=== PATIENT | female | born 1995 | race Caucasian/White ===

== ENCOUNTER 2022-10-26 08:00 | Outpatient (RCR) | payer OTHER, SELFPAY ==
--- NOTE | 2022-10-25 11:28 | PC.NURSE ---
Patient did not show up to the program today and did not answer staff messages left on patients voicemail. Called patient's emergency contact Jessica Ospina patient's mother who stated Ronda is sick today. She reports she is planning on taking a Covid test. If she feels better she will be here tomorrow. Jessica stated she will have Pilar contact staff to f/u.
--- NOTE | 2022-10-26 15:42 | PC.NURSE ---
Patient did not show up to the program today. I spoke with her mother who called me this morning and stated her daughter continues to be sick and has a fever. Stated if she feels better after the weekend she will be here on Saturday. PHP team is aware.
--- NOTE | 2022-10-29 10:50 | PC.NURSE ---
Patient did not show up to the program today. Patient's mother stated last Saturday that Ronda was sick with a fever and was unsure if she would be here on Saturday. I called Ronda and her mother Jessica taylor left them voicemails asking to call me back to f/u. Awaiting a call back. PHP team is aware.
== END 2022-10-26 23:59 | disposition home or self-care (01) ==
LOC: HO.PHPA 08:00
PROVIDERS: Visit Provider Psychiatry & Neurology Psychiatry
DX: F33.1 Major depressive disorder, recurrent, moderate (principal); F41.1 Generalized anxiety disorder; F43.10 Post-traumatic stress disorder, unspecified; F10.20 Alcohol dependence, uncomplicated
CPT/HCPCS: 90791

== ENCOUNTER 2022-11-16 10:17 | Inpatient (IN) | payer OTHER, SELFPAY ==
[2022-11-16 10:21] VITALS: BP 100/43; PULSE 92; RESP 18; TEMP 36.8; O2SAT 99; BMI 30.9
--- NOTE | 2022-11-16 10:58 | PC.NURSE ---
Mom in to bedside with pt. Mom brought pt's phone and a photocopy of apt card provided
[2022-11-16 11:02] LABS: Appearance Urine Cloudy; Color Urine Yellow; Glucose Urine UA Negative (Negative); Leukocyte Esterase Urine Trace (Negative); Nitrite Urine Negative (Negative); PH 7.5 (5.0-9.0); UMIC TRIGGER UACC YES; Urine Blood Negative (Negative); Urine Ketones Negative (Negative); Urine Protein Negative (Neg-Trace)
[2022-11-16 11:13] LABS: Bacteria Urine 1+ (None Seen); Hyaline Casts Urine 0-2 /LPF (0-2); RBC Urine 0-2 /HPF (0-2); UACC Culture Trigger YES
[2022-11-16 11:16] LABS: Amphetamine Screen Urine POSITIVE (Not Detect); Barbiturates, Urine Not Detected (Not Detect); Benzodiazepines Screen Urine POSITIVE (Not Detect); Cannabinoid Screen Urine Not Detected (Not Detect); Cocaine Screen Urine Not Detected (Not Detect); Fentanyl, urine Not Detected (Not Detect); Opiate Screen Urine Not Detected (Not Detect); Phencyclidine Screen Urine Not Detected (Not Detect)
[2022-11-16 11:39] LABS: Influenza A PCR NEGATIVE (Negative); Influenza B PCR NEGATIVE (Negative); Resp Syncy Virus RNA Qual PCR NEGATIVE (Negative); SARS COV2 PCR INHOUSE NEGATIVE (Negative)
--- NOTE | 2022-11-16 11:45 | PC.NURSE ---
Pt's mom Jessica Ospina would like phone call for updates [phone], Kenroy Ospina [phone]
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
[2022-11-16 12:08] LABS: Basophils Absolute Auto 0.1 X10*3/uL (0.0-0.2); Basophils Percent Auto 0.8 % (0-2); Eosinophils Absolute Auto 0.3 X10*3/uL (0.0-0.4); Eosinophils Percent Auto 4.3 % (0-4); Hematocrit 33.2 % (37.0-47.0); Hemoglobin 11.1 g/dl (12.0-16.0); Imm Gran Abs Auto 0.01 X10*3/uL (0.00-0.03); Imm Gran Pct Auto 0.2 % (0.0-0.4); Lymphocytes Absolute Auto 2.5 X10*3/uL (1.2-4.9); Lymphocytes Percent Auto 37.4 % (20-40); Mean Corpuscular HGB Conc 33.4 g/dl (31.0-35.0); Mean Corpuscular Hemoglobin 30.5 pg (27.0-33.0); Mean Corpuscular Volume 91.2 fL (80.0-98.0); Monocytes Absolute Auto 0.7 X10*3/uL (0.1-1.2); Monocytes Percent Auto 11.1 % (2-11); Neutrophils Percent Auto 46.2 % (45-73); Platelet Count 290 X10*3/uL (160-400); Red Blood Count 3.64 X10*6/uL (4.20-5.50); Red Cell Distribution Width 12.7 % (11.0-16.0); White Blood Count 6.6 X10*3/uL (4.8-10.8)
[2022-11-16 12:19] LABS: Acetaminophen LAB < 17 mcg/mL (<30); Alanine Aminotransferase 21 U/L (0-31); Albumin Level 3.8 g/dL (3.5-5.0); Alkaline Phosphatase 53 U/L (39-117); Anion Gap 14 (12-20); Aspartate Amino Transferase 28 U/L (5-31); Bilirubin Total 0.3 mg/dL (0.0-1.0); Blood Urea Nitrogen 10 mg/dL (9-16); Calcium 8.6 mg/dL (8.4-10.2); Carbon Dioxide 21 mmol/L (22-29); Chloride 107 mmol/L (96-108); Creatinine Clr Calc Pharmacy 98.1; Estimated Glomerular Filt Rate > 60; Ethanol < 10 mg/dL; Glucose Random 127 mg/dL (60-115); Potassium 3.3 mmol/L (3.3-5.1); Salicylate < 5.0 mg/dL (15-30); Sodium 139 mmol/L (135-145)
--- NOTE | 2022-11-16 15:03 | PC.NURSE ---
Pt sleeping, social work attempted to meet with pt. Pt not willing to wake at this time and participate in eval. Plan to let pt sleep and social work will follow up.
[2022-11-16 22:37] VITALS: BP 127/81; PULSE 77; RESP 16; TEMP 36.7; O2SAT 96
--- NOTE | 2022-11-17 06:09 | PC.NURSE ---
Patient slept through the night, no distress observed/reported, asymptomatic of ETOH withdrawal, patient was assessed by care team disposition pending, awaiting psych consult, med rec completed/pending provider's approval, behavior non concerning, thought process coherent, VSS, will continue to monitor.
[2022-11-17 06:57] VITALS: BP 93/47; PULSE 79; RESP 15; TEMP 36.9; O2SAT 99
--- NOTE | 2022-11-17 07:02 | PC.NURSE ---
Patient sleeping no distress noted will CTM
[2022-11-17] MEDS: buPROPion HCl XL 150 MG TAB.ER.24H PO (12:34)
[2022-11-17] MEDS: buPROPion HCl XL 300 MG TAB.ER.24H PO (12:34)
--- NOTE | 2022-11-17 14:24 | MHC.CARE ---
CARE TEAM attempted to re-assessed pt at 2300. She was minimally engaged and was observed falling asleep throughout the assessment. CARE TEAM will re-attempt to assess.
[2022-11-17 15:14] VITALS: BP 96/34; PULSE 64; RESP 18; TEMP 36.4; O2SAT 98
--- NOTE | 2022-11-17 17:57 | MHC.CARE ---
CARE Team was unable to arouse pt. Plan to follow up with pt at a later time.
[2022-11-17] MEDS: PARoxetine HCL 20 MG TABLET PO (21:14)
[2022-11-17] MEDS: Topiramate 100 MG TABLET PO (21:14)
[2022-11-18 02:50] VITALS: BP 100/56; PULSE 83; RESP 15; TEMP 37; O2SAT 100
--- NOTE | 2022-11-18 06:43 | PC.NURSE ---
Patient slept through the night, no distress observed/reported, behavior non concerning, medication compliant, care team disposition pending/patient will revaluated by care team in the morning, VSS, will continue to monitor.
[2022-11-18] MEDS: cloNIDine HCL 0.1 MG TABLET PO ×2 (08:09→20:57)
[2022-11-18] MEDS: buPROPion HCl XL 300 MG TAB.ER.24H PO (08:17)
[2022-11-18] MEDS: buPROPion HCl XL 150 MG TAB.ER.24H PO (08:17)
[2022-11-18] MEDS: PARoxetine HCL 20 MG TABLET PO (08:17)
--- NOTE | 2022-11-18 10:06 | PC.NURSE ---
PT RESTING QUIETLY. AWAITING CARE TEAM ASSESSMENT.
--- NOTE | 2022-11-18 19:40 | PC.NURSE ---
Pt currently has a visitor in his room. Visitor brought a blanket and pt' eye contacts. Both items have been checked and secured. Contacts are with pt's chart.
[2022-11-18 20:00] VITALS: BP 105/55; PULSE 86; RESP 16; TEMP 36.1; O2SAT 99
[2022-11-18] MEDS: Topiramate 100 MG TABLET PO (20:57)
[2022-11-19 02:00] VITALS: BP 110/62; PULSE 79; RESP 16; TEMP 36.4; O2SAT 99
[2022-11-19] MEDS: diphenhydrAMINE HCL 25 MG CAPSULE 50 MG PO (02:35)
[2022-11-19] MEDS: LORazepam 1 MG TABLET 2 MG PO (02:35)
[2022-11-19] MEDS: buPROPion HCl XL 150 MG TAB.ER.24H PO (10:09)
[2022-11-19] MEDS: cloNIDine HCL 0.1 MG TABLET PO ×2 (10:09→22:52)
[2022-11-19] MEDS: buPROPion HCl XL 300 MG TAB.ER.24H PO (10:09)
[2022-11-19] MEDS: PARoxetine HCL 20 MG TABLET PO (10:09)
[2022-11-19 14:59] VITALS: BP 97/47; PULSE 83; RESP 16; O2SAT 98
[2022-11-19 16:20] VITALS: BP 98/55; PULSE 83; TEMP 35.7; O2SAT 100
[2022-11-19] MEDS: clomiPRAMINE HCl 25 MG CAPSULE PO (22:52)
[2022-11-19] MEDS: Amitriptyline HCl 25 MG TABLET PO (22:52)
[2022-11-19] MEDS: Topiramate 100 MG TABLET PO (22:52)
--- NOTE | 2022-11-20 00:53 | PC.ADMIT ---
Patient is a 27 year old Faroese speaking single female, admitted as a CV admission to at 1620 and placed on 15 minute safety checks. Patient was medically cleared in the [facility] ED,, evaluated by the CARE team and deemed in need of IPLOC secondary to depression, anxiety andf SI. Patient has a history of ETOH abuse. She has not been at [facility] before for psychiatric issues. Patient was tired on admission but denied any withdrawal issues and no SI OR HI. [id number] aqble to sign legals and then decided to rest. Med and meal compliant.
[2022-11-20 08:33] VITALS: BP 102/57; PULSE 73; RESP 16; TEMP 36.8; O2SAT 100
[2022-11-20] MEDS: PARoxetine HCL 20 MG TABLET PO (08:44)
[2022-11-20] MEDS: cloNIDine HCL 0.1 MG TABLET PO ×3 (08:44→20:20)
[2022-11-20] MEDS: buPROPion HCl XL 300 MG TAB.ER.24H PO (08:44)
[2022-11-20] MEDS: buPROPion HCl XL 150 MG TAB.ER.24H PO (08:44)
--- NOTE | 2022-11-20 09:00 | ECG_ITS ---
Test Reason : ck qt Blood Pressure : / mmHG Vent. Rate : 072 BPM Atrial Rate : 072 BPM P-R Int : 122 ms QRS Dur : 082 ms QT Int : 394 ms P-R-T Axes : 059 075 034 degrees QTc Int : 431 ms Normal sinus rhythm Normal ECG No previous ECGs available Referred By: Kandice Cartagena Electronically Signed By:Álvaro Khalil
[2022-11-20] MEDS: Acetaminophen 325 MG TABLET 650 MG PO (09:35)
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
[2022-11-20 10:28] LABS: Cholesterol 199 mg/dL; HDL Cholesterol 79 mg/dL; LDL Cholesterol Calculated 107 mg/dl; Magnesium 2.1 mg/dL (1.6-2.6); Triglycerides 67 mg/dL
[2022-11-20 10:45] LABS: Folate 14.6 ng/mL (> or = 4.0); Free T4 (Free Thyroxine) 0.76 ng/dL (0.71-1.85); Thyroid Stimulating Hormone 1.66 uIU/mL (0.32-4.0); Vitamin B12 1034 pg/mL (200-900)
[2022-11-20 10:46] LABS: Estimated Average Glucose 97 mg/dL
[2022-11-20 16:05] VITALS: BP 97/52; PULSE 101; TEMP 36.2; O2SAT 99
[2022-11-20 18:20] VITALS: BP 106/56; PULSE 95; RESP 16; TEMP 36.1; O2SAT 100
[2022-11-20 20:15] VITALS: BP 99/62; PULSE 84
[2022-11-20] MEDS: Topiramate 100 MG TABLET PO (20:20)
[2022-11-20] MEDS: clomiPRAMINE HCl 25 MG CAPSULE PO (20:20)
[2022-11-20] MEDS: Amitriptyline HCl 25 MG TABLET PO (20:20)
[2022-11-20] MEDS: Lithium Carbonate ER 300 MG TABLET.ER PO (20:20)
--- NOTE | 2022-11-20 22:05 | PC.NURSE ---
Patient was provided specimen cup for urine HCG.
[2022-11-21 09:30] VITALS: BP 135/63; PULSE 94; RESP 16; TEMP 36.1; O2SAT 99
[2022-11-21] MEDS: buPROPion HCl XL 300 MG TAB.ER.24H PO (09:46)
[2022-11-21] MEDS: cloNIDine HCL 0.1 MG TABLET PO ×3 (09:46→19:37)
[2022-11-21] MEDS: PARoxetine HCL 20 MG TABLET PO (09:51)
[2022-11-21] MEDS: Acetaminophen 325 MG TABLET 650 MG PO (11:00)
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
[2022-11-21 13:50] VITALS: BP 98/55; PULSE 97
[2022-11-21] MEDS: hydrOXYzine HCL 25 MG TABLET PO (14:07)
[2022-11-21 19:30] VITALS: BP 112/63; PULSE 102; TEMP 36.3; O2SAT 100
[2022-11-21] MEDS: Topiramate 100 MG TABLET PO (19:37)
[2022-11-21] MEDS: clomiPRAMINE HCl 25 MG CAPSULE PO (19:37)
[2022-11-21] MEDS: Lithium Carbonate ER 300 MG TABLET.ER 600 MG PO (19:37)
[2022-11-21] MEDS: traZODone HCL 50 MG TABLET PO ×2 (19:37→21:09)
[2022-11-21] MEDS: Amitriptyline HCl 25 MG TABLET PO (19:37)
[2022-11-21 22:25] VITALS: BP 109/59; PULSE 94; TEMP 36.3; O2SAT 100
[2022-11-21] MEDS: OLANZapine 2.5 MG TABLET PO (22:49)
--- NOTE | 2022-11-22 00:26 | PC.NURSE ---
Patient was quite anxious and agitated around 2215 and said she thought the Trazadone might be interacting with another medication. Patient said she was having AH of male and female voices and one of the female voices called her a bitch. Patient said she had a similar experience when she took Trazadone with Vyvanse. Dr. Amaro notified of patient's concern. An order for Zyprexa 2.5 mg q 4 hours prn anxiety and agitation was ordered. Vitals signs were WNL and other than feeling anxious and having the AH patient was stable.
[2022-11-22] MEDS: hydrOXYzine HCL 25 MG TABLET PO ×2 (00:52→09:25)
[2022-11-22] MEDS: PARoxetine HCL 10 MG TABLET PO (09:25)
[2022-11-22] MEDS: cloNIDine HCL 0.1 MG TABLET PO ×3 (09:25→21:40)
[2022-11-22] MEDS: FLUoxetine HCl 10 MG CAPSULE PO (09:25)
[2022-11-22] MEDS: buPROPion HCl XL 300 MG TAB.ER.24H PO (09:26)
[2022-11-22 10:12] VITALS: BP 90/53; PULSE 96; RESP 18; TEMP 36.3; O2SAT 100
[2022-11-22] MEDS: Lithium Carbonate ER 300 MG TABLET.ER PO (13:44)
[2022-11-22] MEDS: clonazePAM 0.5 MG TABLET PO ×2 (13:44→21:41)
[2022-11-22] MEDS: OLANZapine 5 MG TABLET PO (14:15)
[2022-11-22 18:00] VITALS: RESP 16
[2022-11-22] MEDS: Lithium Carbonate ER 300 MG TABLET.ER 600 MG PO (21:41)
[2022-11-22] MEDS: Topiramate 100 MG TABLET PO (21:41)
[2022-11-22] MEDS: traZODone HCL 100 MG TABLET 200 MG PO (21:41)
--- NOTE | 2022-11-22 23:16 | HO.PSYCHPN ---
Subjective Subjective Date of Service: 11/22/22 Reason For Visit: Alcohol Use Disorder, Depression w/ Active SI Interim History: Met with patient; discussed in team; met with patient's mother who came to the unit and discussed case for about 30 minutes with social service coordinator present Patient having auditory hallucinations with paranoid thoughts. She thinks that staff was talking about her and her manic episode and going through her phone. The reason she thinks this is because when in her room, down the [place], was looking up at the light fixture and thought she could see staff doing so, in the light fixture. She also thought she could hear this. Also think she hears staff and peers making comments such as she's a whore...a hooker...she has a sugar daddy... Patient also says she hears a beeping sound. Initially she thinks it is true but then reflects and says she thinks it is combination of auditory hallucinations and reality. She says she has had auditory hallucinations before, when on Vyvanse which made her start to feel manic. Patient was up at 04:00 texting her mother these things which prompted her mother to come to the unit. Patient agrees to increase lithium, discontinue Paxil, clomipramine and amitriptyline; also lower Wellbutrin. Will also add Zyprexa as a p.r.n. and clonazepam as patient is both anxious, hypomanic and with AVH Patient's mother corroborated patient's history and agrees that there are discrete 3 day to 2 week episodes were patient is manic, during which time she engages in substance abuse, risky behaviors, is hyper verbal, hyperactive, not sleeping, not acting herself; she can see when this is about to happen because about 1 2 days before an episode, she will start dressing more fancy and sleeping less and all of sudden wants to go go out. When not manic patient is calm, quiet, shy, stays at home, no substance abuse. Patient's mother and family have thought this is just due to substance abuse, however check writer salesperson explained patient's likely diagnosis of bipolar disorder and that substance abuse seems to be limited to manic episodes. Patient's mother reflected in felt that she had been wondering if this was true and with discussion thinks that it very likely is; no history of such in the family. Discussed medication management with mother who agrees on plan. Mental Status Exam Mental Status Exam Narrative: Pt is alert and oriented; behavior is cooperative, anxious, a little guarded; patient is not in distress; dressed in casual attire with black/blonde colored hair, adequate hygiene; mood is described as upset and affect congruent, distraught, tearful, nervous; eye contact appropriate; Speech is a little brisk; normal volume and prosody and not pressured; some psychomotor agitation present; thought process can be goal directed but is also distracted; Thought content is on paranoid delusions; on tx; denies any SI/HI. Patient endorses AH and some illusions. Patients insight and judgment are impaired. Diagnostics Vital Signs (24Hr): Vital Signs - 24 hr 11/22/22 10:12 11/22/22 18:00 Temperature 97.3 F Pulse Rate 96 Respiratory Rate 18 16 Blood Pressure 90/53 L Pulse Oximetry 100 Oxygen Delivery Method Room Air BMI result Body Mass Index 30.9 Labs 11/16/22 12:00 11/16/22 11:49 Medications Medications Current Medications Acetaminophen (Acetaminophen 325 Mg Tablet) 650 mg PO Q6H PRN PRN Reason: Headache/Pain Mild Scale (1-3) Last Admin: 11/21/22 11:00 Dose: 650 mg Al Hydroxide/Mg Hydroxide (Magnesium Hydrox/Alum Hydrox 30 Ml Oral.Susp) 30 ml PO Q6H PRN PRN Reason: Heartburn/Nausea Albuterol Sulfate (Albuterol Sulfate 90 Mcg 8 Gm Inhaler) 2 puff INHALE Q4H PRN PRN Reason: Shortness of Breath/Wheezing Bupropion HCl (Bupropion Hcl Xl 150 Mg Tab.Er.24h) 150 mg PO DAILY [facility] Clonazepam (Clonazepam 0.5 Mg Tablet) 0.5 mg PO BID [facility] Stop: 11/24/22 23:00 Last Admin: 11/22/22 21:41 Dose: 0.5 mg Clonidine HCl (Clonidine Hcl 0.1 Mg Tablet) 0.1 mg PO TID [facility]; Protocol Last Admin: 11/22/22 21:40 Dose: 0.1 mg Fluoxetine HCl (Fluoxetine Hcl 10 Mg Capsule) 10 mg PO DAILY [facility] Last Admin: 11/22/22 09:25 Dose: 10 mg Hydroxyzine HCl (Hydroxyzine Hcl 25 Mg Tablet) 25 mg PO Q6H PRN PRN Reason: Anxiety Last Admin: 11/22/22 09:25 Dose: 25 mg [place] Carbonate ([place] Carbonate Er 300 Mg Tablet.Er) 600 mg PO BEDTIME [facility] Last Admin: 11/22/22 21:41 Dose: 600 mg [place] Carbonate ([place] Carbonate Er 300 Mg Tablet.Er) 300 mg PO DAILY [facility] Magnesium Hydroxide (Milk Of Magnesia 30 Ml Oral.Susp) 30 ml PO DAILY PRN PRN Reason: Constipation Olanzapine (Olanzapine 5 Mg Tablet) 5 mg PO Q4H PRN PRN Reason: anxiety/agitation Last Admin: 11/22/22 14:15 Dose: 5 mg Topiramate (Topiramate 100 Mg Tablet) 100 mg PO BEDTIME [facility] Last Admin: 11/22/22 21:41 Dose: 100 mg Trazodone HCl (Trazodone Hcl 100 Mg Tablet) 200 mg PO BEDTIME [facility] Last Admin: 11/22/22 21:41 Dose: 200 mg Trazodone HCl (Trazodone Hcl 50 Mg Tablet) 50 mg PO BEDTIME PRN PRN Reason: continued Insomnia Allergies Allergies Allergy/AdvReac Type Severity Reaction Status Date / Time No Known Allergies Allergy Verified 11/16/22 19:31 Assessment & Plan Assessment & Plan (1) Bipolar 1 disorder: Status: Acute Code(s): F31.9 - Bipolar disorder, unspecified (2) PTSD (post-traumatic stress disorder): Status: Acute Code(s): F43.10 - Post-traumatic stress disorder, unspecified (3) Social anxiety disorder: Status: Acute Code(s): F40.10 - Social phobia, unspecified Plan Patient is a 27-year-old female with a history of severe anxiety, panic attacks and past history of binge alcoholism who presents after what sounds like a manic episode.? -history provides adequate criteria for bipolar diagnosis.? Seems much more likely that binge alcoholism is due to manic episodes rather than its own alcohol use disorder. -patient also has social anxiety disorder and MOMO with some low self-esteem issues.? Will need to rule out OCD -patient is currently on polypharmacy, most of which do not seem to be that helpful.? Discussed risks/side effects of lithium and patient agrees to trial. pt has IUD but will get urine preg 2/ patient anxious and upset about psychosocial stressors; did not sleep last night.? Asks for trazodone 50 mg; agrees to titration of lithium and getting off Paxil with help from Prozac. 2/2 patient presenting with manic symptoms, AVH, paranoid thinking. Agrees to medication management. Discussed case with mother who was present and corroborates patient's psych history, making bipolar disorder most likely diagnosis; in addition to PTSD, social anxiety/MOMO, and likely ADHD. Pt asked about CSS but agrees to hold off on that thought for now. PLAN: CV Q 15 minute checks Preg urine test ordered INCREASE to trazodone 200mg q.h.s. which is patient's home dose; patient agrees that she needs this ADDED lithium ER 300 mg daily Continue lithium ER 600 mg q.h.s. ADD Zyprexa 5 mg Q 4 p.r.n.; will consider scheduling ADD clonazepam 0.5 mg b.i.d. LOWER TO Wellbutrin XL 150 mg due to mango(patient was just recently increased to 450 mg) DC Paxil 10 mg for now; however will likely taper and discontinue since has not been helpful for anxiety BUT Continue Prozac 10 mg to help get off Paxil; want to avoid discontinuation syndrome which will complicate presentation DC amitriptyline; patient says she has it for insomnia DC lomipramine for now; patient says she was recently started on this for OCD DC Vyvanse; patient says she was never diagnosed with ADHD but outpatient provider started on this for weight gain (says she gained 50 lb over the past year; that said patient does have some symptoms of ADHD) Continue Topamax q.h.s. for migraine prevention Continue clonidine 0.1 mg t.i.d. for now Will also consider starting Lamictal for anxiety, PTSD and OCD since SSRIs have not seemed helpful; that said once on lithium patient may be able to tolerate higher doses of SSRI Patient educated on: diagnosis, medication risk/benefits, substance abuse and therapeutic strategies Informed Consent: understands and further education needed Reason for contiued inpatient stay Substantial Risk for: inability to function Time Spent With Patient Time: Total time managing care of this patient today ____ minutes.
[2022-11-22 23:53] VITALS: BP 119/80; PULSE 98; TEMP 36.8; O2SAT 95
[2022-11-23] MEDS: OLANZapine 5 MG TABLET PO ×3 (01:15→14:42)
[2022-11-23] MEDS: hydrOXYzine HCL 25 MG TABLET PO ×2 (01:30→14:42)
[2022-11-23 08:30] VITALS: BP 105/71; PULSE 123; TEMP 36.6; O2SAT 98
[2022-11-23] MEDS: clonazePAM 0.5 MG TABLET PO ×2 (08:46→21:25)
[2022-11-23] MEDS: Lithium Carbonate ER 300 MG TABLET.ER PO (08:46)
[2022-11-23] MEDS: FLUoxetine HCl 10 MG CAPSULE PO (08:46)
[2022-11-23] MEDS: buPROPion HCl XL 150 MG TAB.ER.24H PO (08:46)
[2022-11-23] MEDS: cloNIDine HCL 0.1 MG TABLET PO ×3 (09:12→21:23)
--- NOTE | 2022-11-23 10:14 | P.PNPSI_ITS ---
Subjective Subjective Date of Service: 11/23/22 Reason For Visit: Alcohol Use Disorder, Depression w/ Active SI Interim History: Met with patient; discussed in teams Patient floridly psychotic now, did not sleep last night.? Patient rambling about her father's face being ripped off by dogs over and over, the [place] [employer] in [place], mother said that she because she was wasted, dad was shot in both legs, crying, muttering She says she thinks the lithium is making her psychotic and would like to change in; content writer agrees with this plan patient agrees to start Depakote Says zyprexa prn did nothing Mental Status Exam Mental Status Exam Narrative: Pt is alert and oriented; behavior is disorganized, crying, anxious; dressed in casual attire with black/blonde colored hair, adequate hygiene; mood is described as psychotic and affect congruent, distraught, tearful, nervous; eye contact appropriate; Speech is a muttered at times, brisk; normal volume; psychomotor agitation present; thought process disorganized thought can be goal directed too; Thought content is on paranoid delusions; denies any SI/HI. Patient endorses AH and some illusions. Patients insight and judgment are impaired. Diagnostics Vital Signs (24Hr): Vital Signs - 24 hr 11/22/22 18:00 11/22/22 23:53 Temperature 98.2 F Pulse Rate 98 Respiratory Rate 16 Blood Pressure 119/80 Pulse Oximetry 95 Oxygen Delivery Method Room Air BMI result Body Mass Index 30.9 Labs 11/16/22 12:00 11/16/22 11:49 Medications Medications Current Medications Acetaminophen (Acetaminophen 325 Mg Tablet) 650 mg PO Q6H PRN PRN Reason: Headache/Pain Mild Scale (1-3) Last Admin: 11/21/22 11:00 Dose: 650 mg Al Hydroxide/Mg Hydroxide (Magnesium Hydrox/Alum Hydrox 30 Ml Oral.Susp) 30 ml PO Q6H PRN PRN Reason: Heartburn/Nausea Albuterol Sulfate (Albuterol Sulfate 90 Mcg 8 Gm Inhaler) 2 puff INHALE Q4H PRN PRN Reason: Shortness of Breath/Wheezing Bupropion HCl (Bupropion Hcl Xl 150 Mg Tab.Er.24h) 150 mg PO DAILY [facility] Last Admin: 11/23/22 08:46 Dose: 150 mg Clonazepam (Clonazepam 0.5 Mg Tablet) 0.5 mg PO BID [facility] Stop: 11/24/22 23:00 Last Admin: 11/23/22 08:46 Dose: 0.5 mg Clonidine HCl (Clonidine Hcl 0.1 Mg Tablet) 0.1 mg PO TID [facility]; Protocol Last Admin: 11/23/22 09:12 Dose: 0.1 mg Fluoxetine HCl (Fluoxetine Hcl 10 Mg Capsule) 10 mg PO DAILY [facility] Last Admin: 11/23/22 08:46 Dose: 10 mg Hydroxyzine HCl (Hydroxyzine Hcl 25 Mg Tablet) 25 mg PO Q6H PRN PRN Reason: Anxiety Last Admin: 11/23/22 01:30 Dose: 25 mg [place] Carbonate ([place] Carbonate Er 300 Mg Tablet.Er) 600 mg PO BEDTIME [facility] Last Admin: 11/22/22 21:41 Dose: 600 mg [place] Carbonate ([place] Carbonate Er 300 Mg Tablet.Er) 300 mg PO DAILY [facility] Last Admin: 11/23/22 08:46 Dose: 300 mg Magnesium Hydroxide (Milk Of Magnesia 30 Ml Oral.Susp) 30 ml PO DAILY PRN PRN Reason: Constipation Olanzapine (Olanzapine 5 Mg Tablet) 5 mg PO Q4H PRN PRN Reason: anxiety/agitation Last Admin: 11/23/22 05:05 Dose: 5 mg Topiramate (Topiramate 100 Mg Tablet) 100 mg PO BEDTIME [facility] Last Admin: 11/22/22 21:41 Dose: 100 mg Trazodone HCl (Trazodone Hcl 100 Mg Tablet) 200 mg PO BEDTIME [facility] Last Admin: 11/22/22 21:41 Dose: 200 mg Trazodone HCl (Trazodone Hcl 50 Mg Tablet) 50 mg PO BEDTIME PRN PRN Reason: continued Insomnia Allergies Allergies Allergy/AdvReac Type Severity Reaction Status Date / Time No Known Allergies Allergy Verified 11/16/22 19:31 Assessment & Plan Assessment & Plan (1) Bipolar 1 disorder: Status: Acute Code(s): F31.9 - Bipolar disorder, unspecified (2) PTSD (post-traumatic stress disorder): Status: Acute Code(s): F43.10 - Post-traumatic stress disorder, unspecified (3) Social anxiety disorder: Status: Acute Code(s): F40.10 - Social phobia, unspecified Plan Patient is a 27-year-old female with a history of severe anxiety, panic attacks and past history of binge alcoholism who presents after what sounds like a manic episode.? -history provides adequate criteria for bipolar diagnosis.? Seems much more likely that binge alcoholism is due to manic episodes rather than its own alcohol use disorder. -patient also has social anxiety disorder and MOMO with some low self-esteem issues.? Will need to rule out OCD -patient is currently on polypharmacy, most of which do not seem to be that helpful.? Discussed risks/side effects of lithium and patient agrees to trial. pt has IUD but will get urine preg 2/ patient anxious and upset about psychosocial stressors; did not sleep last night.? Asks for trazodone 50 mg; agrees to titration of lithium and getting off Paxil with help from Prozac. 2 patient presenting with manic symptoms, AVH, paranoid thinking. Agrees to medication management. Discussed case with mother who was present and co rroborates patient's psych history, making bipolar disorder most likely diagnosis; in addition to PTSD, social anxiety/MOMO, and likely ADHD. Pt asked about CSS but agrees to hold off on that thought for now. 2 -DC lithium since she seems to have worsening psychotic symptoms on it; -Started Depakote.? -Also switched p.r.n. to Geodon (as Zyprexa did not seem to help). ? Discontinued Paxil, amitriptyline, clomipramine and Wellbutrin given the polypharmacy and potential for triggering manic episode.? While discontinuation syndrome with Paxil remains a concern (was using Prozac but discontinued that also), worsening manic and psychotic symptoms warranted getting rid of it. -urine preg: neg PLAN: CV Q 15 minute checks START Depakote ER 1000mg Qhs ADD Geodon 20mg BID prn for agitation/psychosis Continue clonazepam 0.5 mg b.i.d. Continue Topamax q.h.s. for migraine prevention Continue clonidine 0.1 mg t.i.d. for now Continue trazodone 200mg q.h.s. which is patient's home dose; patient agrees that she needs this DC lithium (worsening psychotic symptoms?) DC Zyprexa as prn; did not help DC Wellbutrin due to mango(patient was just recently increased to 450 mg) DC Paxil 10 mg for now; however will likely taper and discontinue since has not been helpful for anxiety DC Prozac 10 mg (was being used to stave off discontinuation syndrome from dc of paxil, but given worsening manic/psychotic symptoms will dc) DC amitriptyline; patient says she has it for insomnia DC clomipramine for now; patient says she was recently started on this for OCD DC Vyvanse; patient says she was never diagnosed with ADHD but outpatient provider started on this for weight gain (says she gained 50 lb over the past year; that said patient does have some symptoms of ADHD) Will also consider starting Lamictal for anxiety, PTSD and OCD since SSRIs have not seemed helpful; that said once on lithium patient may be able to tolerate higher doses of SSRI Patient educated on: diagnosis and medication risk/benefits Informed Consent: understands and further education needed Reason for contiued inpatient stay Substantial Risk for: inability to function Time Spent With Patient Time: Total time managing care of this patient today ____ minutes.
[2022-11-23 11:30] LABS: UPreg QC Valid YES; Urine Pregnancy NEGATIVE (NEGATIVE)
[2022-11-23 14:52] VITALS: BP 126/62
[2022-11-23] MEDS: Divalproex Sodium ER 500 MG TAB.ER.24H PO ×2 (15:34→21:25)
[2022-11-23] MEDS: Ziprasidone 20 MG CAPSULE PO (15:34)
[2022-11-23] MEDS: LORazepam 1 MG TABLET 2 MG PO (15:34)
[2022-11-23 18:00] VITALS: BP 119/57; PULSE 117; TEMP 36.6; O2SAT 98
[2022-11-23] MEDS: traZODone HCL 100 MG TABLET 200 MG PO (21:22)
[2022-11-23] MEDS: Topiramate 100 MG TABLET PO (21:25)
[2022-11-24 09:40] VITALS: BP 97/52; PULSE 82; RESP 16; TEMP 37.2; O2SAT 97
[2022-11-24] MEDS: cloNIDine HCL 0.1 MG TABLET PO ×2 (09:43→19:42)
[2022-11-24] MEDS: clonazePAM 0.5 MG TABLET PO ×2 (09:43→19:42)
[2022-11-24] MEDS: FLUoxetine HCl 10 MG CAPSULE PO (09:44)
--- NOTE | 2022-11-24 17:08 | HO.PSYCHPN ---
Subjective Subjective Date of Service: 11/24/22 Reason For Visit: Alcohol Use Disorder, Depression w/ Active SI Interim History: attempted to meet with patient, who would not engage. As per nursing had moved rooms by herself due to difficulty sleeping. Intermittently paranoid and hallucinating. Noted lithium being changed to Depakote and olanzapine to Geodon. Discontinue Paxil Wellbutrin and tricyclic antidepressants. Medication Compliance: Yes Side effects from medications: No Attending Groups: No Review of Systems Acute medical concerns: No Review of Systems Review of Systems Yes Unobtainable due to mental status Mental Status Exam Mental Status Exam Narrative: In room And would not engage Diagnostics Vital Signs (24Hr): Vital Signs - 24 hr 11/23/22 18:00 11/24/22 09:40 Temperature 98 F 98.9 F Pulse Rate 117 H 82 Respiratory Rate 16 Blood Pressure 119/57 L 97/52 L Pulse Oximetry 98 97 Oxygen Delivery Method Room Air Room Air BMI result Body Mass Index 30.9 Labs 11/16/22 12:00 11/16/22 11:49 Labs: Laboratory Results - last 48 hr 11/23/22 11:19 Urine Test NEGATIVE Medications Medications Current Medications Acetaminophen (Acetaminophen 325 Mg Tablet) 650 mg PO Q6H PRN PRN Reason: Headache/Pain Mild Scale (1-3) Last Admin: 11/21/22 11:00 Dose: 650 mg Al Hydroxide/Mg Hydroxide (Magnesium Hydrox/Alum Hydrox 30 Ml Oral.Susp) 30 ml PO Q6H PRN PRN Reason: Heartburn/Nausea Albuterol Sulfate (Albuterol Sulfate 90 Mcg 8 Gm Inhaler) 2 puff INHALE Q4H PRN PRN Reason: Shortness of Breath/Wheezing Clonazepam (Clonazepam 0.5 Mg Tablet) 0.5 mg PO BID [facility] Stop: 11/24/22 23:00 Last Admin: 11/24/22 09:43 Dose: 0.5 mg Clonidine HCl (Clonidine Hcl 0.1 Mg Tablet) 0.1 mg PO TID [facility]; Protocol Last Admin: 11/24/22 14:33 Dose: Not Given Divalproex Sodium (Divalproex Sodium Er 500 Mg Tab.Er.24h) 1,000 mg PO BEDTIME [facility] Fluoxetine HCl (Fluoxetine Hcl 10 Mg Capsule) 10 mg PO DAILY [facility] Last Admin: 11/24/22 09:44 Dose: 10 mg Hydroxyzine HCl (Hydroxyzine Hcl 25 Mg Tablet) 25 mg PO Q6H PRN PRN Reason: Anxiety Last Admin: 11/23/22 14:42 Dose: 25 mg Magnesium Hydroxide (Milk Of Magnesia 30 Ml Oral.Susp) 30 ml PO DAILY PRN PRN Reason: Constipation Olanzapine (Olanzapine 5 Mg Tablet) 5 mg PO Q4H PRN PRN Reason: anxiety/agitation Last Admin: 11/23/22 14:42 Dose: 5 mg Topiramate (Topiramate 100 Mg Tablet) 100 mg PO BEDTIME [facility] Last Admin: 11/23/22 21:25 Dose: 100 mg Trazodone HCl (Trazodone Hcl 100 Mg Tablet) 200 mg PO BEDTIME [facility] Last Admin: 11/23/22 21:22 Dose: 200 mg Trazodone HCl (Trazodone Hcl 50 Mg Tablet) 50 mg PO BEDTIME PRN PRN Reason: continued Insomnia Ziprasidone (Ziprasidone 20 Mg Capsule) 20 mg PO BID PRN PRN Reason: agitaiton/anxiety Allergies Allergies Allergy/AdvReac Type Severity Reaction Status Date / Time No Known Allergies Allergy Verified 11/16/22 19:31 Assessment & Plan Assessment & Plan (1) Bipolar 1 disorder: Status: Acute Code(s): F31.9 - Bipolar disorder, unspecified (2) PTSD (post-traumatic stress disorder): Status: Acute Code(s): F43.10 - Post-traumatic stress disorder, unspecified (3) Social anxiety disorder: Status: Acute Code(s): F40.10 - Social phobia, unspecified Plan Patient is a 27-year-old female with a history of severe anxiety, panic attacks and past history of binge alcoholism who presents after what sounds like a manic episode.? -history provides adequate criteria for bipolar diagnosis.? Seems much more likely that binge alcoholism is due to manic episodes rather than its own alcohol use disorder. -patient also has social anxiety disorder and MOMO with some low self-esteem issues.? Will need to rule out OCD -patient is currently on polypharmacy, most of which do not seem to be that helpful.? Discussed risks/side effects of lithium and patient agrees to trial. pt has IUD but will get urine preg 2/ patient anxious and upset about psychosocial stressors; did not sleep last night.? Asks for trazodone 50 mg; agrees to titration of lithium and getting off Paxil with help from Prozac. 2/2 patient presenting with manic symptoms, AVH, paranoid thinking. Agrees to medication management. Discussed case with mother who was present and corroborates patient's psych history, making bipolar disorder most likely diagnosis; in addition to PTSD, social anxiety/MOMO, and likely ADHD. Pt asked about CSS but agrees to hold off on that thought for now. 2/3 -DC lithium since she seems to have worsening psychotic symptoms on it; -Started Depakote.? -Also switched p.r.n. to Geodon (as Zyprexa did not seem to help). ? Discontinued Paxil, amitriptyline, clomipramine and Wellbutrin given the polypharmacy and potential for triggering manic episode.? While discontinuation syndrome with Paxil remains a concern (was using Prozac but discontinued that also), worsening manic and psychotic symptoms warranted getting rid of it. -urine preg: neg \ 11/24/2022: No changes to current plan PLAN: CV Q 15 minute checks START Depakote ER 1000mg Qhs ADD Geodon 20mg BID prn for agitation/psychosis Continue clonazepam 0.5 mg b.i.d. Continue Topamax q.h.s. for migraine prevention Continue clonidine 0.1 mg t.i.d. for now Continue trazodone 200mg q.h.s. which is patient's home dose; patient agrees that she needs this DC lithium (worsening psychotic symptoms?) DC Zyprexa as prn; did not help DC Wellbutrin due to mango(patient was just recently increased to 450 mg) DC Paxil 10 mg for now; however will likely taper and discontinue since has not been helpful for anxiety DC Prozac 10 mg (was being used to stave off discontinuation syndrome from dc of paxil, but given worsening manic/psychotic symptoms will dc) DC amitriptyline; patient says she has it for insomnia DC clomipramine for now; patient says she was recently started on this for OCD DC Vyvanse; patient says she was never diagnosed with ADHD but outpatient provider started on this for weight gain (says she gained 50 lb over the past year; that said patient does have some symptoms of ADHD) Will also consider starting Lamictal for anxiety, PTSD and OCD since SSRIs have not seemed helpful; that said once on lithium patient may be able to tolerate higher doses of SSRI Reason for contiued inpatient stay Substantial Risk for: inability to function and rapid decompensation Time Spent With Patient Time: Total time managing care of this patient today ____ minutes.
--- NOTE | 2022-11-24 18:17 | PC.NURSE ---
pt has been sleeping for most of the day. has not left room and barely eating meals. When asked pt reports, I just want to rest, please stop bothering me . Pt complaint with meds and vital signs
[2022-11-24] MEDS: Divalproex Sodium ER 500 MG TAB.ER.24H 1000 MG PO (19:42)
[2022-11-24] MEDS: Topiramate 100 MG TABLET PO (19:42)
[2022-11-24] MEDS: traZODone HCL 100 MG TABLET 200 MG PO (19:43)
[2022-11-24 20:32] VITALS: BP 118/72; PULSE 82
[2022-11-25 10:01] VITALS: BP 89/51; PULSE 76; RESP 16; TEMP 37.2; O2SAT 98
[2022-11-25] MEDS: FLUoxetine HCl 10 MG CAPSULE PO (10:02)
--- NOTE | 2022-11-25 13:09 | P.PNPSI_ITS ---
Subjective Subjective Date of Service: 11/25/22 Reason For Visit: Alcohol Use Disorder, Depression w/ Active SI Interim History: Met with patient. Discussed with Nursing. Patient did engage with hand sign writer today. Reports trying to catch up on sleep. Still reports some feelings of paranoia and hallucinations. Reports they are getting less intense. Does feel safe here. Does however prefer single room space due to paranoia and recent lack of sleep. Did eat breakfast this morning. No medication concerns. Denied SI. Medication Compliance: Yes Side effects from medications: No Attending Groups: No Review of Systems Acute medical concerns: No Review of Systems Review of Systems Yes all other systems are reviewed and are negative Mental Status Exam Mental Status Exam Narrative: Pleasant. Appropriately dressed. Self-care okay. Engaged. Denied depression. Affect flat. No SI. No HI. Did endorse hallucinations, but reluctant to discuss content. Did endorse paranoia. Did however feel safe. Insight and judgment appears fair Diagnostics Vital Signs (24Hr): Vital Signs - 24 hr 11/24/22 20:32 11/25/22 10:01 Temperature 98.9 F Pulse Rate 82 76 Respiratory Rate 16 Blood Pressure 118/72 89/51 L Pulse Oximetry 98 Oxygen Delivery Method Room Air BMI result Body Mass Index 30.9 Labs 11/16/22 12:00 11/16/22 11:49 Medications Medications Current Medications Acetaminophen (Acetaminophen 325 Mg Tablet) 650 mg PO Q6H PRN PRN Reason: Headache/Pain Mild Scale (1-3) Last Admin: 11/21/22 11:00 Dose: 650 mg Al Hydroxide/Mg Hydroxide (Magnesium Hydrox/Alum Hydrox 30 Ml Oral.Susp) 30 ml PO Q6H PRN PRN Reason: Heartburn/Nausea Albuterol Sulfate (Albuterol Sulfate 90 Mcg 8 Gm Inhaler) 2 puff INHALE Q4H PRN PRN Reason: Shortness of Breath/Wheezing Clonidine HCl (Clonidine Hcl 0.1 Mg Tablet) 0.1 mg PO TID [facility]; Protocol Last Admin: 11/25/22 10:03 Dose: Not Given Divalproex Sodium (Divalproex Sodium Er 500 Mg Tab.Er.24h) 1,000 mg PO BEDTIME [facility] Last Admin: 11/24/22 19:42 Dose: 1,000 mg Fluoxetine HCl (Fluoxetine Hcl 10 Mg Capsule) 10 mg PO DAILY [facility] Last Admin: 11/25/22 10:02 Dose: 10 mg Hydroxyzine HCl (Hydroxyzine Hcl 25 Mg Tablet) 25 mg PO Q6H PRN PRN Reason: Anxiety Last Admin: 11/23/22 14:42 Dose: 25 mg Magnesium Hydroxide (Milk Of Magnesia 30 Ml Oral.Susp) 30 ml PO DAILY PRN PRN Reason: Constipation Olanzapine (Olanzapine 5 Mg Tablet) 5 mg PO Q4H PRN PRN Reason: anxiety/agitation Last Admin: 11/23/22 14:42 Dose: 5 mg Topiramate (Topiramate 100 Mg Tablet) 100 mg PO BEDTIME [facility] Last Admin: 11/24/22 19:42 Dose: 100 mg Trazodone HCl (Trazodone Hcl 100 Mg Tablet) 200 mg PO BEDTIME [facility] Last Admin: 11/24/22 19:43 Dose: 200 mg Trazodone HCl (Trazodone Hcl 50 Mg Tablet) 50 mg PO BEDTIME PRN PRN Reason: continued Insomnia Ziprasidone (Ziprasidone 20 Mg Capsule) 20 mg PO BID PRN PRN Reason: agitaiton/anxiety Allergies Allergies Allergy/AdvReac Type Severity Reaction Status Date / Time No Known Allergies Allergy Verified 11/16/22 19:31 Assessment & Plan Assessment & Plan (1) Bipolar 1 disorder: Status: Acute Code(s): F31.9 - Bipolar disorder, unspecified (2) PTSD (post-traumatic stress disorder): Status: Acute Code(s): F43.10 - Post-traumatic stress disorder, unspecified (3) Social anxiety disorder: Status: Acute Code(s): F40.10 - Social phobia, unspecified Plan Patient is a 27-year-old female with a history of severe anxiety, panic attacks and past history of binge alcoholism who presents after what sounds like a manic episode.? -history provides adequate criteria for bipolar diagnosis.? Seems much more likely that binge alcoholism is due to manic episodes rather than its own alcohol use disorder. -patient also has social anxiety disorder and MOMO with some low self-esteem issues.? Will need to rule out OCD -patient is currently on polypharmacy, most of which do not seem to be that helpful.? Discussed risks/side effects of lithium and patient agrees to trial. pt has IUD but will get urine preg 2/ patient anxious and upset about psychosocial stressors; did not sleep last night.? Asks for trazodone 50 mg; agrees to titration of lithium and getting off Paxil with help from Prozac. 2/2 patient presenting with manic symptoms, AVH, paranoid thinking. Agrees to medication management. Discussed case with mother who was present and corroborates patient's psych history, making bipolar disorder most likely diag nosis; in addition to PTSD, social anxiety/MOMO, and likely ADHD. Pt asked about CSS but agrees to hold off on that thought for now. 2/3 -DC lithium since she seems to have worsening psychotic symptoms on it; -Started Depakote.? -Also switched p.r.n. to Geodon (as Zyprexa did not seem to help). ? Discontinued Paxil, amitriptyline, clomipramine and Wellbutrin given the polypharmacy and potential for triggering manic episode.? While discontinuation syndrome with Paxil remains a concern (was using Prozac but discontinued that also), worsening manic and psychotic symptoms warranted getting rid of it. -urine preg: neg 11/25/2022: Will schedule Geodon i.e. currently as needed. Will schedule 20 mg twice daily A PLAN: CV Q 15 minute checks START Depakote ER 1000mg Qhs ADD Geodon 20mg BID prn for agitation/psychosis Continue clonazepam 0.5 mg b.i.d. Continue Topamax q.h.s. for migraine prevention Continue clonidine 0.1 mg t.i.d. for now Continue trazodone 200mg q.h.s. which is patient's home dose; patient agrees that she needs this DC lithium (worsening psychotic symptoms?) DC Zyprexa as prn; did not help DC Wellbutrin due to mango(patient was just recently increased to 450 mg) DC Paxil 10 mg for now; however will likely taper and discontinue since has not been helpful for anxiety DC Prozac 10 mg (was being used to stave off discontinuation syndrome from dc of paxil, but given worsening manic/psychotic symptoms will dc) DC amitriptyline; patient says she has it for insomnia DC clomipramine for now; patient says she was recently started on this for OCD DC Vyvanse; patient says she was never diagnosed with ADHD but outpatient provider started on this for weight gain (says she gained 50 lb over the past year; that said patient does have some symptoms of ADHD) Will also consider starting Lamictal for anxiety, PTSD and OCD since SSRIs have not seemed helpful; that said once on lithium patient may be able to tolerate higher doses of SSRI Reason for contiued inpatient stay Substantial Risk for: inability to function Time Spent With Patient Time: Total time managing care of this patient today ____ minutes.
[2022-11-25 14:28] VITALS: BP 99/54; PULSE 96; RESP 16; TEMP 37.2; O2SAT 98
[2022-11-25] MEDS: cloNIDine HCL 0.1 MG TABLET PO ×2 (14:34→19:29)
[2022-11-25] MEDS: Topiramate 100 MG TABLET PO (19:29)
[2022-11-25] MEDS: Divalproex Sodium ER 500 MG TAB.ER.24H 1000 MG PO (19:29)
[2022-11-25] MEDS: Ziprasidone 20 MG CAPSULE PO (19:30)
[2022-11-25] MEDS: traZODone HCL 100 MG TABLET 200 MG PO (19:30)
[2022-11-25 20:00] VITALS: BP 100/62; PULSE 70
[2022-11-26] MEDS: FLUoxetine HCl 10 MG CAPSULE PO (09:27)
[2022-11-26] MEDS: Ziprasidone 20 MG CAPSULE PO ×2 (09:27→20:58)
[2022-11-26 09:30] VITALS: BP 91/45; PULSE 66; RESP 16; TEMP 35.9; O2SAT 98
[2022-11-26] MEDS: cloNIDine HCL 0.1 MG TABLET PO ×3 (09:50→20:57)
[2022-11-26] MEDS: hydrOXYzine HCL 25 MG TABLET PO (09:50)
--- NOTE | 2022-11-26 09:55 | HO.PSYCHPN ---
Subjective Subjective Date of Service: 11/26/22 Reason For Visit: Alcohol Use Disorder, Depression w/ Active SI Interim History: Met with patient; discussed in team; reviewed weekend notes written by covering provider/staff (still paranoid with AVH, but less intense; sleeping a little more); met and discussed case with patient's father Patient reports feeling little better today. She said she slept well last night. She denies any auditory visual hallucinations or paranoid thinking and is able to reflect on the psychotic symptoms she was experiencing, embarrassed by some of them and relieved that they have resolved. Patient says she still feeling anxious and this needs to rest more but feels much more clear minded. Met with father and discussed case extensively; he understands the provisional diagnosis of bipolar disorder and its relationship to substance abuse. Reviewed her history with him and he concurs with his 's perspective on nature of manic episodes Mental Status Exam Mental Status Exam Narrative: Pt is alert and oriented; behavior is organized, cooperative, more calm; dressed in casual attire with black/blonde colored hair, unkempt; marginal hygiene; mood is described as better and affect congruent, more calm; eye contact appropriate; Speech is a clear, spontaneous, normal volume, rate and prosody; some psychomotor retardation present; thought process goal oriented; thought content is on dealing with illness, tx; denies any SI/HI. denies AVH and not internally pre-occupied; Patients insight and judgment are impaired but improved. Diagnostics Vital Signs (24Hr): Vital Signs - 24 hr 11/25/22 10:01 11/25/22 14:28 11/25/22 20:00 Temperature 98.9 F 98.9 F Pulse Rate 76 96 70 Respiratory Rate 16 16 Blood Pressure 89/51 L 99/54 L 100/62 Pulse Oximetry 98 98 Oxygen Delivery Method Room Air Room Air BMI result Body Mass Index 30.9 Labs 11/16/22 12:00 11/16/22 11:49 Medications Medications Current Medications Acetaminophen (Acetaminophen 325 Mg Tablet) 650 mg PO Q6H PRN PRN Reason: Headache/Pain Mild Scale (1-3) Last Admin: 11/21/22 11:00 Dose: 650 mg Al Hydroxide/Mg Hydroxide (Magnesium Hydrox/Alum Hydrox 30 Ml Oral.Susp) 30 ml PO Q6H PRN PRN Reason: Heartburn/Nausea Albuterol Sulfate (Albuterol Sulfate 90 Mcg 8 Gm Inhaler) 2 puff INHALE Q4H PRN PRN Reason: Shortness of Breath/Wheezing Clonidine HCl (Clonidine Hcl 0.1 Mg Tablet) 0.1 mg PO TID [facility]; Protocol Last Admin: 11/25/22 19:29 Dose: 0.1 mg Divalproex Sodium (Divalproex Sodium Er 500 Mg Tab.Er.24h) 1,000 mg PO BEDTIME [facility] Last Admin: 11/25/22 19:29 Dose: 1,000 mg Fluoxetine HCl (Fluoxetine Hcl 10 Mg Capsule) 10 mg PO DAILY [facility] Last Admin: 11/26/22 09:27 Dose: 10 mg Hydroxyzine HCl (Hydroxyzine Hcl 25 Mg Tablet) 25 mg PO Q6H PRN PRN Reason: Anxiety Last Admin: 11/23/22 14:42 Dose: 25 mg Magnesium Hydroxide (Milk Of Magnesia 30 Ml Oral.Susp) 30 ml PO DAILY PRN PRN Reason: Constipation Olanzapine (Olanzapine 5 Mg Tablet) 5 mg PO Q4H PRN PRN Reason: anxiety/agitation Last Admin: 11/23/22 14:42 Dose: 5 mg Topiramate (Topiramate 100 Mg Tablet) 100 mg PO BEDTIME [facility] Last Admin: 11/25/22 19:29 Dose: 100 mg Trazodone HCl (Trazodone Hcl 100 Mg Tablet) 200 mg PO BEDTIME [facility] Last Admin: 11/25/22 19:30 Dose: 200 mg Trazodone HCl (Trazodone Hcl 50 Mg Tablet) 50 mg PO BEDTIME PRN PRN Reason: continued Insomnia Ziprasidone (Ziprasidone 20 Mg Capsule) 20 mg PO BID [facility] Last Admin: 11/26/22 09:27 Dose: 20 mg Allergies Allergies Allergy/AdvReac Type Severity Reaction Status Date / Time No Known Allergies Allergy Verified 11/16/22 19:31 Assessment & Plan Assessment & Plan (1) Bipolar 1 disorder: Status: Acute Code(s): F31.9 - Bipolar disorder, unspecified (2) PTSD (post-traumatic stress disorder): Status: Acute Code(s): F43.10 - Post-traumatic stress disorder, unspecified (3) Social anxiety disorder: Status: Acute Code(s): F40.10 - Social phobia, unspecified Plan Patient is a 27-year-old female with a history of severe anxiety, panic attacks and past history of binge alcoholism who presents after what sounds like a manic episode.? -history provides adequate criteria for bipolar diagnosis.? Seems much more likely that binge alcoholism is due to manic episodes rather than its own alcohol use disorder. -patient also has social anxiety disorder and MOMO with some low self-esteem issues.? Will need to rule out OCD -patient is currently on polypharmacy, most of which do not seem to be that helpful.? Discussed risks/side effects of lithium and patient agrees to trial. pt has IUD but will get urine preg 11/21 patient anxious and upset about psychosocial stressors; did not sleep last night.? Asks for trazodone 50 mg; agrees to titration of lithium and getting off Paxil with help from Prozac. 11/22 patient presenting with manic symptoms, AVH, paranoid thinking. Agrees to medication management. Discussed case with mother who was present and corroborates patient's psych history, making bipolar disorder most likely diagnosis; in addition to PTSD, social anxiety/MOMO, and likely ADHD. Pt asked about CSS but agrees to hold off on that thought for now. 11/23 -DC lithium since she seems to have worsening psychotic symptoms on it; -Started Depakote.? -Also switched p.r.n. to Geodon (as Zyprexa did not seem to help). ? Discontinued Paxil, amitriptyline, clomipramine and Wellbutrin given the polypharmacy and potential for triggering manic episode.? While discontinuation syndrome with Paxil remains a concern (was using Prozac but discontinued that also), worsening manic and psychotic symptoms warranted getting rid of it. -urine preg: neg 11/25/2022: Will schedule Geodon i.e. currently as needed. Will schedule 20 mg twice daily 11/26 mango and psychotic symptoms seem to be resolved; slept last night and more clear minded. Discontinued scheduled Geodon to see if Depakote itself is sufficient Ordered ammonia level which is mildly elevated; LFTs within normal limits, valproic acid level within normal limits. Will repeat. Will leave dose as it is for now since patient is doing much better and ammonia level is only mildly increased A PLAN: CV Q 15 minute checks Continue Depakote ER 1000mg Qhs RECHECK ammonia level CHANGE Geodon 20mg BID prn for agitation/psychosis (was scheduled; however would like to see if monotherapy with Depakote is sufficient) Continue clonazepam 0.5 mg b.i.d. Continue Topamax q.h.s. for migraine prevention Continue clonidine 0.1 mg t.i.d. for now Continue trazodone 200mg q.h.s. which is patient's home dose; patient agrees that she needs this DC lithium (worsening psychotic symptoms?) DC Zyprexa as prn; did not help DC Wellbutrin due to mango(patient was just recently increased to 450 mg) DC Paxil 10 mg for now; however will likely taper and discontinue since has not been helpful for anxiety DC Prozac 10 mg (was being used to stave off discontinuation syndrome from dc of paxil, but given worsening manic/psychotic symptoms will dc) DC amitriptyline; patient says she has it for insomnia DC clomipramine for now; patient says she was recently started on this for OCD DC Vyvanse; patient says she was never diagnosed with ADHD but outpatient provider started on this for weight gain (says she gained 50 lb over the past year; that said patient does have some symptoms of ADHD) Will also consider starting Lamictal for anxiety, PTSD and OCD since SSRIs have not seemed helpful; that said once on lithium patient may be able to tolerate higher doses of SSRI Patient educated on: diagnosis, medication risk/benefits and substance abuse Informed Consent: understands Reason for contiued inpatient stay Substantial Risk for: rapid decompensation Time Spent With Patient Time: Total time managing care of this patient today ____ minutes.
[2022-11-26 10:38] LABS: MANUAL DIFF FLAG NO
[2022-11-26 10:40] LABS: Basophils Absolute Auto 0.1 X10*3/uL (0.0-0.2); Basophils Percent Auto 0.5 % (0-2); Eosinophils Absolute Auto 0.2 X10*3/uL (0.0-0.4); Eosinophils Percent Auto 2.1 % (0-4); Hemoglobin 12.4 g/dl (12.0-16.0); Imm Gran Abs Auto 0.03 X10*3/uL (0.00-0.03); Imm Gran Pct Auto 0.3 % (0.0-0.4); Lymphocytes Absolute Auto 1.9 X10*3/uL (1.2-4.9); Mean Corpuscular HGB Conc 32.6 g/dl (31.0-35.0); Mean Corpuscular Hemoglobin 30.4 pg (27.0-33.0); Mean Corpuscular Volume 93.1 fL (80.0-98.0); Mean Platelet Volume 9.7 fL (9.4-12.3); Monocytes Percent Auto 10.2 % (2-11); Neutrophils Absolute Auto 6.4 x10*3/uL (2.0-8.3); Neutrophils Percent Auto 66.9 % (45-73); Platelet Count 305 X10*3/uL (160-400); Red Blood Count 4.08 X10*6/uL (4.20-5.50); Red Cell Distribution Width 12.6 % (11.0-16.0); White Blood Count 9.6 X10*3/uL (4.8-10.8)
[2022-11-26 10:54] LABS: Valproate 70.9 mcg/mL (50.0-100.0)
[2022-11-26 10:59] LABS: Alanine Aminotransferase 14 U/L (0-31); Albumin Level 3.7 g/dL (3.5-5.0); Alkaline Phosphatase 50 U/L (39-117); Anion Gap 12 (12-20); Aspartate Amino Transferase 9 U/L (5-31); Bilirubin Total 0.2 mg/dL (0.0-1.0); Blood Urea Nitrogen 14 mg/dL (9-16); Calcium 8.6 mg/dL (8.4-10.2); Carbon Dioxide 20 mmol/L (22-29); Chloride 113 mmol/L (96-108); Creatinine Clr Calc Pharmacy 106.5; Estimated Glomerular Filt Rate > 60; Glucose Random 119 mg/dL (60-115); Potassium 3.5 mmol/L (3.3-5.1); Sodium 141 mmol/L (135-145); Total Protein 5.9 g/dL (6.5-8.0)
[2022-11-26 11:29] LABS: Ammonia 62 umol/L (13-55)
[2022-11-26 18:00] VITALS: BP 109/53; PULSE 84; TEMP 36.9; O2SAT 99
[2022-11-26] MEDS: Divalproex Sodium ER 500 MG TAB.ER.24H 1000 MG PO (20:57)
[2022-11-26] MEDS: traZODone HCL 100 MG TABLET 200 MG PO (20:58)
[2022-11-26] MEDS: Topiramate 100 MG TABLET PO (20:58)
[2022-11-27 06:00] VITALS: BP 123/60; PULSE 95; RESP 18
[2022-11-27] MEDS: cloNIDine HCL 0.1 MG TABLET PO ×2 (09:02→14:20)
--- NOTE | 2022-11-27 10:17 | HO.PSYCHPN ---
Subjective Subjective Date of Service: 11/27/22 Reason For Visit: Alcohol Use Disorder, Depression w/ Active SI Interim History: Met with patient; discussed with team Patient continues to feel better denies any AVH or paranoid thinking. Patient has considerable anxiety however and has not left her room, believing that everyone in the milieu hates her. Patient did respond to reality testing and was able to see the difference between how she is just worried about how people think of her given her history of being bullied and poor self-esteem but that she cannot actually say people here do not like her. 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 Discussed history of OCD has a diagnosis. She says she is not sure if she has it and thinks that perhaps what has been labeled as intrusive thoughts are really just more of a constant generalized worry about things. She will consider this more. Found out from her family that she can return home to live with her parents Again discussed substance abuse and patient pretty much thinks all alcohol abuse has been done during manic episodes Mental Status Exam Mental Status Exam Narrative: Pt is alert and oriented; behavior is organized, cooperative, more calm; dressed in casual attire with black/blonde colored hair, unkempt; marginal hygiene; mood is described as good... Anxious and affect congruent, more calm; eye contact appropriate; Speech is a clear, spontaneous, normal volume, rate and prosody; some psychomotor retardation present; thought process goal oriented; thought content is on dealing with illness, tx; denies any SI/HI. denies AVH and not internally pre-occupied; Patients insight and judgment are impaired but improved. Diagnostics Vital Signs (24Hr): Vital Signs - 24 hr 11/26/22 18:00 11/27/22 06:00 Temperature 98.5 F Pulse Rate 84 95 Respiratory Rate 18 Blood Pressure 109/53 L 123/60 Pulse Oximetry 99 Oxygen Delivery Method Room Air Room Air BMI result Body Mass Index 30.9 Labs 11/26/22 10:34 11/26/22 10:34 Labs: Laboratory Results - last 48 hr 11/26/22 11/26/22 11/26/22 10:34 10:34 10:34 WBC 9.6 RBC 4.08 L Hgb 12.4 Hct 38.0 MCV 93.1 MCH 30.4 MCHC 32.6 RDW 12.6 Plt Count 305 MPV 9.7 Immature Gran % (Auto) 0.3 Neut % (Auto) 66.9 Lymph % (Auto) 20.0 Cowley % (Auto) 10.2 Eos % (Auto) 2.1 Baso % (Auto) 0.5 Lymph # (Auto) 1.9 Cowley # (Auto) 1.0 Eos # (Auto) 0.2 Baso # (Auto) 0.1 Abs Immat Gran (auto) 0.03 Absolute Neuts (auto) 6.4 Absolute Nucleated RBC 0.000 Nucleated RBC % (auto) 0.0 Sodium 141 Potassium 3.5 Chloride 113 H Carbon Dioxide 20 L Anion Gap 12 BUN 14 Creatinine 0.82 Estim Creat Clear Calc 106.5 Estimated GFR > 60 Random Glucose 119 H Calcium 8.6 Total Bilirubin 0.2 AST 9 ALT 14 Alkaline Phosphatase 50 Ammonia 62 H Total Protein 5.9 L Albumin 3.7 Valproic Acid 11/26/22 10:34 WBC RBC Hgb Hct MCV MCH MCHC RDW Plt Count MPV Immature Gran % (Auto) Neut % (Auto) Lymph % (Auto) Cowley % (Auto) Eos % (Auto) Baso % (Auto) Lymph # (Auto) Cowley # (Auto) Eos # (Auto) Baso # (Auto) Abs Immat Gran (auto) Absolute Neuts (auto) Absolute Nucleated RBC Nucleated RBC % (auto) Sodium Potassium Chloride Carbon Dioxide Anion Gap BUN Creatinine Estim Creat Clear Calc Estimated GFR Random Glucose Calcium Total Bilirubin AST ALT Alkaline Phosphatase Ammonia Total Protein Albumin Valproic Acid 70.9 Medications Medications Current Medications Acetaminophen (Acetaminophen 325 Mg Tablet) 650 mg PO Q6H PRN PRN Reason: Headache/Pain Mild Scale (1-3) Last Admin: 11/21/22 11:00 Dose: 650 mg Al Hydroxide/Mg Hydroxide (Magnesium Hydrox/Alum Hydrox 30 Ml Oral.Susp) 30 ml PO Q6H PRN PRN Reason: Heartburn/Nausea Albuterol Sulfate (Albuterol Sulfate 90 Mcg 8 Gm Inhaler) 2 puff INHALE Q4H PRN PRN Reason: Shortness of Breath/Wheezing Clonidine HCl (Clonidine Hcl 0.1 Mg Tablet) 0.1 mg PO TID [facility]; Protocol Last Admin: 11/27/22 09:02 Dose: 0.1 mg Divalproex Sodium (Divalproex Sodium Er 500 Mg Tab.Er.24h) 1,000 mg PO BEDTIME [facility] Last Admin: 11/26/22 20:57 Dose: 1,000 mg Hydroxyzine HCl (Hydroxyzine Hcl 25 Mg Tablet) 25 mg PO Q6H PRN PRN Reason: Anxiety Last Admin: 11/26/22 09:50 Dose: 25 mg Magnesium Hydroxide (Milk Of Magnesia 30 Ml Oral.Susp) 30 ml PO DAILY PRN PRN Reason: Constipation Topiramate (Topiramate 100 Mg Tablet) 100 mg PO BEDTIME [facility] Last Admin: 11/26/22 20:58 Dose: 100 mg Trazodone HCl (Trazodone Hcl 100 Mg Tablet) 200 mg PO BEDTIME [facility] Last Admin: 11/26/22 20:58 Dose: 200 mg Trazodone HCl (Trazodone Hcl 50 Mg Tablet) 50 mg PO BEDTIME PRN PRN Reason: continued Insomnia Ziprasidone (Ziprasidone 20 Mg Capsule) 20 mg PO BID PRN PRN Reason: anxiety/agitation Allergies Allergies Allergy/AdvReac Type Severity Reaction Status Date / Time No Known Allergies Allergy Verified 11/16/22 19:31 Assessment & Plan Assessment & Plan (1) Bipolar 1 disorder: Status: Acute Code(s): F31.9 - Bipolar disorder, unspecified (2) PTSD (post-traumatic stress disorder): Status: Acute Code(s): F43.10 - Post-traumatic stress disorder, unspecified (3) Social anxiety disorder: Status: Acute Code(s): F40.10 - Social phobia, unspecified Plan Patient is a 27-year-old female with a history of severe anxiety, panic attacks and past history of binge alcoholism who presents after what sounds like a manic episode.? -history provides adequate criteria for bipolar diagnosis.? Seems much more likely that binge alcoholism is due to manic episodes rather than its own alcohol use disorder. -patient also has social anxiety disorder and MOMO with some low self-esteem issues.? Will need to rule out OCD -patient is currently on polypharmacy, most of which do not seem to be that helpful.? Discussed risks/side effects of lithium and patient agrees to trial. pt has IUD but will get urine preg 2 patient anxious and upset about psychosocial stressors; did not sleep last night.? Asks for trazodone 50 mg; agrees to titration of lithium and getting off Paxil with help from Prozac. 2/2 patient presenting with manic symptoms, AVH, paranoid thinking. Agrees to medication management. Discussed case with mother who was present and corroborates patient's psych history, making bipolar disorder most likely diagnosis; in addition to PTSD, social anxiety/MOMO, and likely ADHD. Pt asked about CSS but agrees to hold off on that thought for now. 11/23 -DC lithium since she seems to have worsening psychotic symptoms on it; -Started Depakote.? -Also switched p.r.n. to Geodon (as Zyprexa did not seem to help). ? Discontinued Paxil, amitriptyline, clomipramine and Wellbutrin given the polypharmacy and potential for triggering manic episode.? While discontinuation syndrome with Paxil remains a concern (was using Prozac but discontinued that also), worsening manic and psychotic symptoms warranted getting rid of it. -urine preg: neg 11/25/2022: Will schedule Geodon i.e. currently as needed. Will schedule 20 mg twice daily 11/26 mango and psychotic symptoms seem to be resolved; slept last night and more clear minded. Discontinued scheduled Geodon to see if Depakote itself is sufficient Ordered ammonia level which is mildly elevated; LFTs within normal limits, valproic acid level within normal limits. Will repeat. Will leave dose as it is for now since patient is doing much better and ammonia level is only mildly increased 2/ mood improved; no AVH even though Geodon discontinued and left as a p.r.n... Much anxiety and has not left her room however will attempt to do this. Will continue to discuss OCD and generalized anxiety to help address long history of anxious thoughts. A PLAN: CV Q 15 minute checks Continue Depakote ER 1000mg Qhs RECHECK ammonia level CHANGE Geodon 20mg BID prn for agitation/psychosis (was scheduled; however would like to see if monotherapy with Depakote is sufficient) Continue clonazepam 0.5 mg b.i.d. Continue Topamax q.h.s. for migraine prevention Change to clonidine 0.1 mg t.i.d. p.r.n. Continue trazodone 200mg q.h.s. which is patient's home dose; patient agrees that she needs this DC lithium (worsening psychotic symptoms?) DC Zyprexa as prn; did not help DC Wellbutrin due to mango(patient was just recently increased to 450 mg) DC Paxil 10 mg for now; however will likely taper and discontinue since has not been helpful for anxiety DC Prozac 10 mg (was being used to stave off discontinuation syndrome from dc of paxil, but given worsening manic/psychotic symptoms will dc) DC amitriptyline; patient says she has it for insomnia DC clomipramine for now; patient says she was recently started on this for OCD DC Vyvanse; patient says she was never diagnosed with ADHD but outpatient provider started on this for weight gain (says she gained 50 lb over the past year; that said patient does have some symptoms of ADHD) Will also consider starting Lamictal for anxiety, PTSD and OCD since SSRIs have not seemed helpful; that said once on lithium patient may be able to tolerate higher doses of SSRI Patient educated on: diagnosis, medication risk/benefits, substance abuse and therapeutic strategies Informed Consent: understands Reason for contiued inpatient stay Substantial Risk for: rapid decompensation Time Spent With Patient Time: Total time managing care of this patient today ____ minutes.
[2022-11-27 14:19] VITALS: BP 104/60; PULSE 88
[2022-11-27 18:00] VITALS: BP 112/68; PULSE 81; RESP 16; TEMP 36.4; O2SAT 100
[2022-11-27] MEDS: Divalproex Sodium ER 500 MG TAB.ER.24H 1000 MG PO (20:22)
[2022-11-27] MEDS: traZODone HCL 100 MG TABLET 200 MG PO (20:23)
[2022-11-27] MEDS: Topiramate 100 MG TABLET PO (21:46)
[2022-11-28 06:00] VITALS: BP 105/66; PULSE 106; RESP 16; O2SAT 98
[2022-11-28 08:49] LABS: Ammonia 79 umol/L (13-55)
--- NOTE | 2022-11-28 10:25 | P.PNPSI_ITS ---
Subjective Subjective Date of Service: 11/28/22 Reason For Visit: Alcohol Use Disorder, Depression w/ Active SI Interim History: Met with patient; discussed with teams Patient wandering the halls and says she has some confusion; discussed lab work with her which was reviewed with elevated ammonia. Patient agrees to lowering Depakote dose for now. Otherwise no AVH or paranoid thinking. Mental Status Exam Mental Status Exam Narrative: Pt is alert and oriented; behavior is organized, cooperative, more calm; dressed in casual attire with black/blonde colored hair, combed; improved hygiene; mood is described as a little confusion though affect calm, brighter; eye contact appropriate; Speech is a clear, spontaneous, normal volume, rate and prosody; some psychomotor retardation present; thought process goal oriented; thought content is on dealing with illness, tx; denies any SI/HI. denies AVH and not internally pre-occupied; Patients insight and judgment are impaired but improved. Diagnostics Vital Signs (24Hr): Vital Signs - 24 hr 11/27/22 14:19 11/27/22 18:00 11/28/22 06:00 Temperature 97.5 F Pulse Rate 88 81 106 H Respiratory Rate 16 16 Blood Pressure 104/60 112/68 105/66 Pulse Oximetry 100 98 Oxygen Delivery Method Room Air Room Air BMI result Body Mass Index 30.9 Labs 11/26/22 10:34 11/26/22 10:34 Labs: Laboratory Results - last 48 hr 11/26/22 11/26/22 11/26/22 10:34 10:34 10:34 WBC 9.6 RBC 4.08 L Hgb 12.4 Hct 38.0 MCV 93.1 MCH 30.4 MCHC 32.6 RDW 12.6 Plt Count 305 MPV 9.7 Immature Gran % (Auto) 0.3 Neut % (Auto) 66.9 Lymph % (Auto) 20.0 Emmet % (Auto) 10.2 Eos % (Auto) 2.1 Baso % (Auto) 0.5 Lymph # (Auto) 1.9 Emmet # (Auto) 1.0 Eos # (Auto) 0.2 Baso # (Auto) 0.1 Abs Immat Gran (auto) 0.03 Absolute Neuts (auto) 6.4 Absolute Nucleated RBC 0.000 Nucleated RBC % (auto) 0.0 Sodium 141 Potassium 3.5 Chloride 113 H Carbon Dioxide 20 L Anion Gap 12 BUN 14 Creatinine 0.82 Estim Creat Clear Calc 106.5 Estimated GFR > 60 Random Glucose 119 H Calcium 8.6 Total Bilirubin 0.2 AST 9 ALT 14 Alkaline Phosphatase 50 Ammonia 62 H Total Protein 5.9 L Albumin 3.7 Valproic Acid 11/26/22 11/28/22 10:34 08:35 WBC RBC Hgb Hct MCV MCH MCHC RDW Plt Count MPV Immature Gran % (Auto) Neut % (Auto) Lymph % (Auto) Emmet % (Auto) Eos % (Auto) Baso % (Auto) Lymph # (Auto) Emmet # (Auto) Eos # (Auto) Baso # (Auto) Abs Immat Gran (auto) Absolute Neuts (auto) Absolute Nucleated RBC Nucleated RBC % (auto) Sodium Potassium Chloride Carbon Dioxide Anion Gap BUN Creatinine Estim Creat Clear Calc Estimated GFR Random Glucose Calcium Total Bilirubin AST ALT Alkaline Phosphatase Ammonia 79 H Total Protein Albumin Valproic Acid 70.9 Medications Medications Current Medications Acetaminophen (Acetaminophen 325 Mg Tablet) 650 mg PO Q6H PRN PRN Reason: Headache/Pain Mild Scale (1-3) Last Admin: 11/21/22 11:00 Dose: 650 mg Al Hydroxide/Mg Hydroxide (Magnesium Hydrox/Alum Hydrox 30 Ml Oral.Susp) 30 ml PO Q6H PRN PRN Reason: Heartburn/Nausea Albuterol Sulfate (Albuterol Sulfate 90 Mcg 8 Gm Inhaler) 2 puff INHALE Q4H PRN PRN Reason: Shortness of Breath/Wheezing Clonidine HCl (Clonidine Hcl 0.1 Mg Tablet) 0.1 mg PO Q4H PRN; Protocol PRN Reason: anxiety Divalproex Sodium (Divalproex Sodium Er 500 Mg Tab.Er.24h) 1,000 mg PO BEDTIME [facility] Last Admin: 11/27/22 20:22 Dose: 1,000 mg Hydroxyzine HCl (Hydroxyzine Hcl 25 Mg Tablet) 25 mg PO Q6H PRN PRN Reason: Anxiety Last Admin: 11/26/22 09:50 Dose: 25 mg Magnesium Hydroxide (Milk Of Magnesia 30 Ml Oral.Susp) 30 ml PO DAILY PRN PRN Reason: Constipation Topiramate (Topiramate 100 Mg Tablet) 100 mg PO BEDTIME [facility] Last Admin: 11/27/22 21:46 Dose: 100 mg Trazodone HCl (Trazodone Hcl 100 Mg Tablet) 200 mg PO BEDTIME [facility] Last Admin: 11/27/22 20:23 Dose: 200 mg Trazodone HCl (Trazodone Hcl 50 Mg Tablet) 50 mg PO BEDTIME PRN PRN Reason: continued Insomnia Ziprasidone (Ziprasidone 20 Mg Capsule) 20 mg PO BID PRN PRN Reason: anxiety/agitation Allergies Allergies Allergy/AdvReac Type Severity Reaction Status Date / Time No Known Allergies Allergy Verified 11/16/22 19:31 Assessment & Plan Assessment & Plan (1) Bipolar 1 disorder: Status: Acute Code(s): F31.9 - Bipolar disorder, unspecified (2) PTSD (post-traumatic stress disorder): Status: Acute Code(s): F43.10 - Post-traumatic stress disorder, unspecified (3) Social anxiety disorder: Status: Acute Code(s): F40.10 - Social phobia, unspecified Plan Patient is a 27-year-old female with a history of severe anxiety, panic attacks and past history of binge alcoholism who presents after what sounds like a manic episode.? -history provides adequate criteria for bipolar diagnosis.? Seems much more likely that binge alcoholism is due to manic episodes rather than its own alcohol use disorder. -patient also has social anxiety disorder and MOMO with some low self-esteem issues.? Will need to rule out OCD -patient is currently on polypharmacy, most of which do not seem to be that helpful.? Discussed risks/side effects of lithium and patient agrees to trial. pt has IUD but will get urine preg 2/ patient anxious and upset about psychosocial stressors; did not sleep last night.? Asks for trazodone 50 mg; agrees to titration of lithium and getting off Paxil with help from Prozac. 2/2 patient presenting with manic symptoms, AVH, paranoid thinking. Agrees to medication management. Discussed case with mother who was present and corroborates patient's psych history, making bipolar disorder most likely diagnosis; in addition to PTSD, social anxiety/MOMO, and likely ADHD. Pt asked about CSS but agrees to hold off on that thought for now. 2/3 -DC lithium since she seems to have worsening psychotic symptoms on it; -Started Depakote.? -Also switched p.r.n. to Geodon (as Zyprexa did not seem to help). ? Discontinued Paxil, amitriptyline, clomipramine and Wellbutrin given the polypharmacy and potential for triggering manic episode.? While discontinuation syndrome with Paxil remains a concern (was using Prozac but discontinued that also), worsening manic and psychotic symptoms warranted getting rid of it. -urine preg: neg 11/25/2022: Will schedule Geodon i.e. currently as needed. Will schedule 20 mg twice daily 11/26 mango and psychotic symptoms seem to be resolved; slept last night and more clear minded. Discontinued scheduled Geodon to see if Depakote itself is sufficient Ordered ammonia level which is mildly elevated; LFTs within normal limits, valproic acid level within normal limits. Will repeat. Will leave dose as it is for now since patient is doing much better and ammonia level is only mildly increased 11/27 mood improved; no AVH even though Geodon discontinued and left as a p.r.n... Much anxiety and has not left her room however will attempt to do this. Will continue to discuss OCD and generalized anxiety to help address long history of anxious thoughts. 11/28 ammonia level further increased and patient reports some confusion; otherwise no mango, AVH or paranoid thinking. Agrees to lower Depakote dose. Will not give lactulose at this time since want to see if lower Depakote dose is enough to resolve hyperammonemia. A PLAN: CV Q 15 minute checks LOWER to Depakote ER 750mg Qhs RECHECK ammonia level continue PRN Geodon 20mg BID prn for agitation/psychosis (was scheduled; however would like to see if monotherapy with Depakote is sufficient) Continue clonazepam 0.5 mg b.i.d. Continue Topamax q.h.s. for migraine prevention Change to clonidine 0.1 mg t.i.d. p.r.n. Continue trazodone 200mg q.h.s. which is patient's home dose; patient agrees that she needs this DC lithium (worsening psychotic symptoms?) DC Zyprexa as prn; did not help DC Wellbutrin due to mango(patient was just recently increased to 450 mg) DC Paxil 10 mg for now; however will likely taper and discontinue since has not been helpful for anxiety DC Prozac 10 mg (was being used to stave off discontinuation syndrome from dc of paxil, but given worsening manic/psychotic symptoms will dc) DC amitriptyline; patient says she has it for insomnia DC clomipramine for now; patient says she was recently started on this for OCD DC Vyvanse; patient says she was never diagnosed with ADHD but outpatient provider started on this for weight gain (says she gained 50 lb over the past year; that said patient does have some symptoms of ADHD) Will also consider starting Lamictal for anxiety, PTSD and OCD since SSRIs have not seemed helpful; that said once on lithium patient may be able to tolerate higher doses of SSRI Patient educated on: diagnosis, medication risk/benefits and medical condition Informed Consent: understands Reason for contiued inpatient stay Substantial Risk for: rapid decompensation and med/psych decompensation Time Spent With Patient Time: Total time managing care of this patient today ____ minutes.
[2022-11-28 16:10] VITALS: BP 116/61; PULSE 86; TEMP 36.3
[2022-11-28] MEDS: cloNIDine HCL 0.1 MG TABLET PO (16:13)
[2022-11-28] MEDS: Divalproex Sodium ER 250 MG TAB.ER.24H 750 MG PO (21:51)
[2022-11-28] MEDS: traZODone HCL 100 MG TABLET 200 MG PO (21:52)
[2022-11-28] MEDS: Topiramate 100 MG TABLET PO (21:52)
[2022-11-29 08:34] VITALS: BP 103/54; PULSE 86; RESP 16; TEMP 36.6; O2SAT 100
[2022-11-29 08:35] LABS: Ammonia 47 umol/L (13-55)
[2022-11-29 09:27] LABS: Alanine Aminotransferase 9 U/L (0-31); Albumin Level 3.7 g/dL (3.5-5.0); Alkaline Phosphatase 44 U/L (39-117); Aspartate Amino Transferase 10 U/L (5-31); Bilirubin Direct < 0.2 mg/dL (0.0-0.5); Bilirubin Total 0.2 mg/dL (0.0-1.0); Total Protein 5.9 g/dL (6.5-8.0)
--- NOTE | 2022-11-29 10:29 | P.PNPSI_ITS ---
Subjective Subjective Date of Service: 11/29/22 Reason For Visit: Alcohol Use Disorder, Depression w/ Active SI Interim History: Met with patient; discussed in team; family meeting with parents; communicated with outpatient provider of patient's new diagnosis and medication regimen; labs reviewed and ammonia level back to within normal Patient says she is doing well. She has been out about in the milieu and feels less anxious overall, more able to interact. She says she is feeling back to her regular self, no confusion. Discussed her relationship with her current boyfriend whom she met just a few weeks ago during a manic episode; last night on the unit he was caught vaping while visiting her and now visitation is restricted. Claims Collector discussed this relationship with patient who agrees there are some concerns as he still drinks alcohol and abuses Xanax; she said he said he would not use in front of her. Patient able to be self aware and realizes that her desire for boyfriend is so strong that she is willing to rationalize being with a person with some glaring red flags. She laments that the story of my life. Patient is trying to make better choices for herself and does not want to continue putting herself in compromising situations or relationships, however she readily admits it is difficult and her desire for a partner can be overwhelming at times. Discussed substance abuse and patient shared that she would drink when engaging in activities that trigger anxiety such as going on a date; however this would occur only once to twice a month and no other drug or alcohol use outside of manic episodes. Discussed medications and she feels current regimen is adequate; discussed possibility that this regimen could remain adequate and that anxiety could again prove overwhelming and additional medications may be needed. Discussed some options including Prozac, Lamictal and Trileptal. Patient said she will review them with outpatient provider Family meeting was fruitful and patient and parents were able to come to terms; appeals writer provided education about medication and diagnosis Mental Status Exam Mental Status Exam Narrative: Pt is alert and oriented; behavior is organized, cooperative, calm; dressed in casual attire with black/blonde colored hair, combed; adequate hygiene; mood is described as good and affect calm, bright; eye contact appropriate; Speech is a clear, spontaneous, normal volume, rate and prosody; no psychomotor re tardation present; thought process goal oriented; thought content is intact and on dealing with illness, tx; denies any SI/HI. denies AVH and not internally pre-occupied, no paranoid thinking; Patients insight and judgment are fair and adequate.. Diagnostics Vital Signs (24Hr): Vital Signs - 24 hr 11/28/22 16:10 11/29/22 08:34 Temperature 97.4 F 97.9 F Pulse Rate 86 86 Respiratory Rate 16 Blood Pressure 116/61 103/54 L Pulse Oximetry 100 Oxygen Delivery Method Room Air BMI result Body Mass Index 30.9 Labs 11/26/22 10:34 11/26/22 10:34 Labs: Laboratory Results - last 48 hr 11/28/22 11/29/22 11/29/22 08:35 08:04 08:04 Total Bilirubin 0.2 Direct Bilirubin < 0.2 AST 10 ALT 9 Alkaline Phosphatase 44 Ammonia 79 H 47 Total Protein 5.9 L Albumin 3.7 Medications Medications Current Medications Acetaminophen (Acetaminophen 325 Mg Tablet) 650 mg PO Q6H PRN PRN Reason: Headache/Pain Mild Scale (1-3) Last Admin: 11/21/22 11:00 Dose: 650 mg Al Hydroxide/Mg Hydroxide (Magnesium Hydrox/Alum Hydrox 30 Ml Oral.Susp) 30 ml PO Q6H PRN PRN Reason: Heartburn/Nausea Albuterol Sulfate (Albuterol Sulfate 90 Mcg 8 Gm Inhaler) 2 puff INHALE Q4H PRN PRN Reason: Shortness of Breath/Wheezing Clonidine HCl (Clonidine Hcl 0.1 Mg Tablet) 0.1 mg PO Q4H PRN; Protocol PRN Reason: anxiety Last Admin: 11/28/22 16:13 Dose: 0.1 mg Divalproex Sodium (Divalproex Sodium Er 250 Mg Tab.Er.24h) 750 mg PO BEDTIME [facility] Last Admin: 11/28/22 21:51 Dose: 750 mg Hydroxyzine HCl (Hydroxyzine Hcl 25 Mg Tablet) 25 mg PO Q6H PRN PRN Reason: Anxiety Last Admin: 11/26/22 09:50 Dose: 25 mg Magnesium Hydroxide (Milk Of Magnesia 30 Ml Oral.Susp) 30 ml PO DAILY PRN PRN Reason: Constipation Topiramate (Topiramate 100 Mg Tablet) 100 mg PO BEDTIME [facility] Last Admin: 11/28/22 21:52 Dose: 100 mg Trazodone HCl (Trazodone Hcl 100 Mg Tablet) 200 mg PO BEDTIME [facility] Last Admin: 11/28/22 21:52 Dose: 200 mg Trazodone HCl (Trazodone Hcl 50 Mg Tablet) 50 mg PO BEDTIME PRN PRN Reason: continued Insomnia Ziprasidone (Ziprasidone 20 Mg Capsule) 20 mg PO BID PRN PRN Reason: anxiety/agitation Allergies Allergies Allergy/AdvReac Type Severity Reaction Status Date / Time No Known Allergies Allergy Verified 11/16/22 19:31 Assessment & Plan Assessment & Plan (1) Bipolar 1 disorder: Status: Acute Code(s): F31.9 - Bipolar disorder, unspecified (2) PTSD (post-traumatic stress disorder): Status: Acute Code(s): F43.10 - Post-traumatic stress disorder, unspecified (3) Social anxiety disorder: Status: Acute Code(s): F40.10 - Social phobia, unspecified Plan Patient is a 27-year-old female with a history of severe anxiety, panic attacks and past history of binge alcoholism who presents after what sounds like a manic episode.? -history provides adequate criteria for bipolar diagnosis.? Seems much more lik aneesh that binge alcoholism is due to manic episodes rather than its own alcohol use disorder. -patient also has social anxiety disorder and MOMO with some low self-esteem issues.? Will need to rule out OCD -patient is currently on polypharmacy, most of which do not seem to be that helpful.? Discussed risks/side effects of lithium and patient agrees to trial. pt has IUD but will get urine preg 2/ patient anxious and upset about psychosocial stressors; did not sleep last night.? Asks for trazodone 50 mg; agrees to titration of lithium and getting off Paxil with help from Prozac. 2/2 patient presenting with manic symptoms, AVH, paranoid thinking. Agrees to medication management. Discussed case with mother who was present and corroborates patient's psych history, making bipolar disorder most likely diagnosis; in addition to PTSD, social anxiety/MOMO, and likely ADHD. Pt asked about CSS but agrees to hold off on that thought for now. 2/3 -DC lithium since she seems to have worsening psychotic symptoms on it; -Started Depakote.? -Also switched p.r.n. to Geodon (as Zyprexa did not seem to help). ? Discontinued Paxil, amitriptyline, clomipramine and Wellbutrin given the polypharmacy and potential for triggering manic episode.? While discontinuation syndrome with Paxil remains a concern (was using Prozac but discontinued that also), worsening manic and psychotic symptoms warranted getting rid of it. -urine preg: neg 11/25/2022: Will schedule Geodon i.e. currently as needed. Will schedule 20 mg twice daily 11/26 mango and psychotic symptoms seem to be resolved; slept last night and more clear minded. Discontinued scheduled Geodon to see if Depakote itself is sufficient Ordered ammonia level which is mildly elevated; LFTs within normal limits, valproic acid level within normal limits. Will repeat. Will leave dose as it is for now since patient is doing much better and ammonia level is only mildly increased 11/27 mood improved; no AVH even though Geodon discontinued and left as a p.r.n... Much anxiety and has not left her room however will attempt to do this. Will continue to discuss OCD and generalized anxiety to help address long history of anxious thoughts. 11/28 ammonia level further increased and patient reports some confusion; otherwise no mango, AVH or paranoid thinking. Agrees to lower Depakote dose. Will not give lactulose at this time since want to see if lower Depakote dose is enough to resolve hyperammonemia. 11/29 patient is doing well, in a good mood, clear minded and organized in speech behavior. Ammonia level back to within normal limits and patient remaining stable on lower Depakote dose. Feels that medication regimen is adequate and will follow-up with outpatient provider. Family meeting today and all feel that patient is ready for discharge home where she will now go and live with her parents; she will engage in partial day program on discharge. Patient is eating and sleeping well. No SI or HI or AVH. Future oriented and feeling back to her regular self. Patient is stable and appropriate to continue treatment as an outpatient. She wants to discharge and goes home to a stable environment. She is not in imminent risk for harm to self or others and request for discharge honored A PLAN: CV Q 15 minute checks Continue Depakote ER 750mg Qhs ammonia level WNL continue PRN Geodon 20mg BID prn for agitation/psychosis (was scheduled; however would like to see if monotherapy with Depakote is sufficient) Continue clonazepam 0.5 mg b.i.d. p.r.n. Continue Topamax q.h.s. for migraine prevention Change to clonidine 0.1 mg t.i.d. p.r.n. Continue trazodone 200mg q.h.s. which is patient's home dose; patient agrees that she needs this DC lithium (worsening psychotic symptoms?) DC Zyprexa as prn; did not help DC Wellbutrin due to mango(patient was just recently increased to 450 mg) DC Paxil 10 mg for now; however will likely taper and discontinue since has not been helpful for anxiety DC Prozac 10 mg (was being used to stave off discontinuation syndrome from dc of paxil, but given worsening manic/psychotic symptoms will dc) DC amitriptyline; patient says she has it for insomnia DC clomipramine for now; patient says she was recently started on this for OCD DC Vyvanse; patient says she was never diagnosed with ADHD but outpatient provider started on this for weight gain (says she gained 50 lb over the past year; that said patient does have some symptoms of ADHD) Will also consider starting Lamictal for anxiety, PTSD and OCD since SSRIs have not seemed helpful; that said once on lithium patient may be able to tolerate higher doses of SSRI Patient educated on: diagnosis, medication risk/benefits, substance abuse, therapeutic strategies and medical condition Informed Consent: understands Reason for contiued inpatient stay Substantial Risk for: stable for discharge Time Spent With Patient Time: Total time managing care of this patient today ____ minutes.
--- NOTE | 2022-11-29 16:51 | PM.PSYDC ---
DS: Providers Provider Date of Service: 11/30/22 Date of admission: 11/19/22 15:51 Date of discharge: 11/30/22 Primary care physician: Unknown Physician Attending physician on admission: Valdemar Amaro Attending physician on discharge: Valdemar Amaro DS: Diagnosis Discharge Diagnosis (1) Bipolar 1 disorder: Status: Acute (2) PTSD (post-traumatic stress disorder): Status: Acute (3) Social anxiety disorder: Status: Acute DS: Medications Discharge Medications Home Medications: Home Medications Medication Instructions Recorded Confirmed lisdexamfetamine 30 mg capsule 1 cap PO BID 11/16/22 11/16/22 (Vyvanse) albuterol sulfate 90 mcg/actuation 2 puff inhalation Q4H 11/17/22 11/17/22 aerosol inhaler (Ventolin HFA) Previous Rx's Medication Instructions Recorded clonidine HCl 0.1 mg tablet 0.1 mg PO Q4H PRN anxiety 30 days 11/29/22 #90 tabs divalproex 250 mg tablet,extended 750 mg PO BEDTIME 30 days #90 tabs 11/29/22 release 24 hr topiramate 100 mg tablet 100 mg PO BEDTIME 30 days #30 tabs 11/29/22 trazodone 100 mg tablet 200 mg PO BEDTIME 30 days #60 tabs 11/29/22 Mental Status Exam Mental Status Exam Narrative: Pt is alert and oriented; behavior is organized, cooperative, calm; dressed in casual attire with black/blonde colored hair, combed; adequate hygiene; mood is described as good and affect calm, bright; eye contact appropriate; Speech is a clear, spontaneous, normal volume, rate and prosody; no psychomotor retardation present; thought process goal oriented; thought content is intact and on dealing with illness, tx; denies any SI/HI. denies AVH and not internally pre-occupied, no paranoid thinking; Patients insight and judgment are fair and adequate.. Data Data Completed and Pending Completed studies during hospitalization [Text1]: 11/23/22 11/26/22 11/26/22 11:19 10:34 10:34 WBC 9.6 RBC 4.08 L Hgb 12.4 Hct 38.0 MCV 93.1 MCH 30.4 MCHC 32.6 RDW 12.6 Plt Count 305 MPV 9.7 Immature Gran % (Auto) 0.3 Neut % (Auto) 66.9 Lymph % (Auto) 20.0 Hickman % (Auto) 10.2 Eos % (Auto) 2.1 Baso % (Auto) 0.5 Lymph # (Auto) 1.9 Hickman # (Auto) 1.0 Eos # (Auto) 0.2 Baso # (Auto) 0.1 Abs Immat Gran (auto) 0.03 Absolute Neuts (auto) 6.4 Absolute Nucleated RBC 0.000 Nucleated RBC % (auto) 0.0 Sodium 141 Potassium 3.5 Chloride 113 H Carbon Dioxide 20 L Anion Gap 12 BUN 14 Creatinine 0.82 Estim Creat Clear Calc 106.5 Estimated GFR > 60 Random Glucose 119 H Calcium 8.6 Total Bilirubin 0.2 Direct Bilirubin AST 9 ALT 14 Alkaline Phosphatase 50 Ammonia Total Protein 5.9 L Albumin 3.7 Urine Test NEGATIVE Valproic Acid 11/26/22 11/26/22 11/28/22 10:34 10:34 08:35 WBC RBC Hgb Hct MCV MCH MCHC RDW Plt Count MPV Immature Gran % (Auto) Neut % (Auto) Lymph % (Auto) Hickman % (Auto) Eos % (Auto) Baso % (Auto) Lymph # (Auto) Hickman # (Auto) Eos # (Auto) Baso # (Auto) Abs Immat Gran (auto) Absolute Neuts (auto) Absolute Nucleated RBC Nucleated RBC % (auto) Sodium Potassium Chloride Carbon Dioxide Anion Gap BUN Creatinine Estim Creat Clear Calc Estimated GFR Random Glucose Calcium Total Bilirubin Direct Bilirubin AST ALT Alkaline Phosphatase Ammonia 62 H 79 H Total Protein Albumin Urine Test Valproic Acid 70.9 11/29/22 11/29/22 08:04 08:04 WBC RBC Hgb Hct MCV MCH MCHC RDW Plt Count MPV Immature Gran % (Auto) Neut % (Auto) Lymph % (Auto) Hickman % (Auto) Eos % (Auto) Baso % (Auto) Lymph # (Auto) Hickman # (Auto) Eos # (Auto) Baso # (Auto) Abs Immat Gran (auto) Absolute Neuts (auto) Absolute Nucleated RBC Nucleated RBC % (auto) Sodium Potassium Chloride Carbon Dioxide Anion Gap BUN Creatinine Estim Creat Clear Calc Estimated GFR Random Glucose Calcium Total Bilirubin 0.2 Direct Bilirubin < 0.2 AST 10 ALT 9 Alkaline Phosphatase 44 Ammonia 47 Total Protein 5.9 L Albumin 3.7 Urine Test Valproic Acid 11/16/22 00:00 Urine clean catch - Urine giraldo top Urine Culture - Final No growth. DS: Summary Hospital Course Hospital Course: HPI: Patient is a 27-year-old female with a history of severe anxiety, panic attacks and past history of binge alcoholism who presents after what sounds like a manic episode.? -history provides adequate criteria for bipolar diagnosis.? Seems much more likely that binge alcoholism is due to manic episodes rather than its own alcohol use disorder. -patient also has social anxiety disorder and MOMO with some low self-esteem issues.? Will need to rule out OCD -patient is currently on polypharmacy, most of which do not seem to be that helpful.? Discussed risks/side effects of lithium and patient agrees to trial. pt has IUD but will get urine preg Hospital course: 2/ patient anxious and upset about psychosocial stressors; did not sleep last night.? Asks for trazodone 50 mg; agrees to titration of lithium and getting off Paxil with help from Prozac. 2/ patient presenting with manic symptoms, AVH, paranoid thinking.? Agrees to medication management.? Discussed case with mother who was present and corroborates patient's psych history, making bipolar disorder most likely diagnosis; in addition to PTSD, social anxiety/MOMO, and likely ADHD. Pt asked about CSS but agrees to hold off on that thought for now. 2/3 -DC lithium since she seems to have worsening psychotic symptoms on it; DC zyprexa since not helping much -Started Depakote and started Geodon to combat psychosis -Discontinued Paxi (and Prozac which was being used to get off paxil)l, amitriptyline, clomipramine and Wellbutrin given the polypharmacy and potential for continuing to trigger manic episode.? 2/6 Patients symptoms improved, she was able to sleep, aVH and paranoia resolved and Geodon discontinued; more clear minded.? Depakote proved sufficient as monotherapy Ammonia level elevated; However lowered Depakote dose And ammonia returned to within normal Patient remained in good mood, eating and sleeping well manic and psychotic And in good behavioral And impulse control. Patient had significant anxiety however this also lessened on Depakote. Further review of symptoms and patient seems mostly to have social anxiety, maybe MOMO but not so much OCD; also Ptsd for trauma during manic episodes. Patient said she felt ready to go home and back to her regular self.? Future oriented, good insight into her illness and substance abuse (which is primarily only during times of manic episodes); family meeting and parents both supportive and understanding and inviting patient to return to live at home. ?Manager Ship tried to get a hold of patient's outpatient psychiatric provider however was unable to do so via the phone so sent an e-mail regarding diagnosis change and medication changes.? Feels that medication regimen is adequate and will follow-up with outpatient provider.?Pt will also start partial day program on discharge.? Patient is eating and sleeping well.? ? Patient is stable and appropriate to continue treatment as an outpatient.? She wants to discharge and goes home to a stable environment.? She is not in imminent risk for harm to self or others and request for discharge honored Meds: Continue Depakote ER 750mg Qhs Continue? clonazepam 0.5 mg b.i.d. p.r.n. Continue Topamax q.h.s. for migraine prevention Change to clonidine 0.1 mg t.i.d. p.r.n. Continue? trazodone 200mg q.h.s. Now that patient is mood stablized, she will discuss restarting Vyvanse w/out pt provider. Consider either lamictal, prozac or trileptal if anxiety returns DC lithium (worsening psychotic symptoms?) DC Zyprexa as prn; did not help much DC Wellbutrin due to mango(patient was just recently increased to 450 mg) DC Paxil 10 mg; however will likely taper and discontinue since has not been helpful for anxiety DC Prozac 10 mg (was being used to stave off discontinuation syndrome from dc of paxil, but given worsening manic/psychotic symptoms will dc) DC amitriptyline; patient says she has it for insomnia DC clomipramine for now; patient says she was recently started on this for OCD Time spent discussing smoking cessation with patient: 3 to 10 minutes Status at Discharge Functional status at discharge: independent ambulation Overall status at discharge: patient is back to baseline Time Spent with Patient Time attestation: Total time managing care of this patient today ____ minutes. Time spent: Less than 30 minutes Discharge Plan Discharge Anticipated Discharge Date/Time: 11/30/22 14:00 Patient Disposition: Home, Self-Care Discharge Diagnosis: Bipolar disorder I, recurrent, severe w/ psychotic features in full remission Referrals: Therapist: Carley Sinha ([employer]) [Other] - 12/06/22 2:00 pm (If you need to see Carley sooner, call her and can schedule urgent care appointment at the office for Saturday evening, 11/30 or Saturday morning, 12/01. Your appointment on 12/06 is scheduled in person at the office. ) Psych Prescriber:Destinee Montes ([employer]) [Other] - 1 Week (APPOINTMENT 12/12/22 TELEHEALTH) PHP Intake: [facility] [Other] - 1 Week (Intake appointment 12/14/2022 8:00 am. If an earlier appointment becomes available you will be contacted. You will start PHP the following day after completing your intake. The PHP hours are Saturday through Saturday 8:45am-1:45pm. Follow the silver signs with blue writing for [facility] once you pull onto [address] (take right after the ED and then a left at the crosswalk). ) [facility] [Outside] - 12/03/22 10:40 am Discharge Medications: New divalproex 250 mg Tablet Extended Release 24 Hr 750 mg PO BEDTIME 30 Days Qty: 90 0RF trazodone 100 mg Tablet 200 mg PO BEDTIME 30 Days Qty: 60 0RF Continued albuterol sulfate [Ventolin HFA] 90 mcg/actuation HFA aerosol inhaler 2 puff INHALATION Q4H Changed clonidine HCl 0.1 mg tablet 0.1 mg PO Q4H PRN (Reason: anxiety) 30 Days Qty: 90 0RF topiramate 100 mg tablet 100 mg PO BEDTIME 30 Days Qty: 30 0RF Held Vyvanse 30 mg capsule 1 cap PO BID Hold Instructions: Resume on 12/19/22. discuss with outpt provider Discontinued paroxetine HCl 20 mg tablet 1 tab PO DAILY bupropion HCl 300 mg tablet extended release 24 hr 1 tab PO QAM bupropion HCl 150 mg tablet extended release 24 hr 1 tab PO QAM amitriptyline 25 mg tablet 1 tab PO BEDTIME clomipramine 25 mg capsule 1 cap PO BEDTIME Discharge Orders: Discharge Order (Routine); Ordered 11/30/22 Ordered By: Valdemar Amaro Diet: Regular diet Activity on Discharge: As tolerated Stand Alone Forms: Patient Portal Discharge page, Community Support Care Plan Goals: Maintain mood and safe behaviors Take medications as prescribed Continue to pursue sobriety Practice coping skills Continue with outpatient providers and reach out to them as needed Health Concerns: Mood stability and behaviors Sobriety Plan of Treatment: Follow up with your Psychiatric provider and other outpatient providers regarding above concerns Take medications as prescribed Assessment: Risk assessment at time of discharge:? Patient was interviewed prior to discharge and found to be fully oriented and without any SI or HI. Patient has insight and demonstrates good judgment in terms of wanting to pursue treatment. Patient is not in imminent risk of harm to self or others and has a safety plan that includes presenting to the closest ER or calling 911 if feeling unsafe.? Patient has been observed closely by nursing and unit staff throughout admission; patient has not engaged in any behaviors that suggest dangerousness to self or others and has demonstrated appropriate behaviors and impulse control Discharge Date/Time: 11/30/22 15:02
[2022-11-29] MEDS: Acetaminophen 325 MG TABLET 650 MG PO (16:57)
[2022-11-29 18:00] VITALS: BP 124/82; PULSE 78; RESP 16; TEMP 36.4; O2SAT 98
[2022-11-29] MEDS: Divalproex Sodium ER 250 MG TAB.ER.24H 750 MG PO (20:51)
[2022-11-29] MEDS: Topiramate 100 MG TABLET PO (20:51)
[2022-11-29] MEDS: traZODone HCL 100 MG TABLET 200 MG PO (20:52)
[2022-11-30 08:31] VITALS: BP 90/56; PULSE 100; RESP 16; TEMP 36.8; O2SAT 100
== END 2022-11-30 15:02 | disposition home or self-care (01) | DRG 753 ==
LOC: HO.ED 20:15 → HO.PM5 11-19 16:02
PROVIDERS: Clinical Nurse Specialist Psychiatric/Mental Health, Adult; Admitting Provider Psychiatry & Neurology Psychiatry; Emergency Provider Student in an Organized Health Care Education/Training Program; Visit Provider Psychiatry & Neurology Psychiatry
DX: F31.9 Bipolar disorder, unspecified (principal); R45.851 Suicidal ideations; F40.10 Social phobia, unspecified; Z20.822 Contact with and (suspected) exposure to COVID-19; Z97.5 Presence of (intrauterine) contraceptive device; Z79.899 Other long term (current) drug therapy
CPT/HCPCS: 0241U; 36415; 80053; 80061; 80076; 80143; 80164; 80179; 80307; 81001; 81003; 81025; 82077; 82140; 82607; 82746; 83036; 83735; 84439; 84443; 85025; 87086; 93005; 99285; S9485

== ENCOUNTER 2023-01-01 11:30 | Outpatient (RCR) | payer OTHER, SELFPAY ==
--- NOTE | 2022-12-17 13:09 | P.HPPSP_ITS ---
[facility] Date of Service: 12/17/22 Chief Complaint: PTSD,bipolar Sources of Information: patient interviewed, chart reviewed and crisis/core team assessment reviewed HPI Medical Problems Affecting Mental Status: No Narrative: Ms. Ospina is a 27-year-old female, referred to [facility] as a step-down from [facility] M[facility] unit, where she was admitted from 11/19/2022 through 11/30/2022. History of severe anxiety, panic attacks, binge alcohol use disorder. Was admitted inpatient due to possible manic episode. She was diagnosed with bipolar 1 disorder, started with appropriate medications. Presents today is fully alert and oriented, no hallucinations, no paranoia, no delusions noted. No loosening of associations noted. She reports that when she was a young child in elementary school she experienced severe social anxiety. As 18 she received therapy for eating disorder, anorexia and bulimia. She has been binge eating most recently. She hopes to work on skills while here, states that she wants to replace using alcohol and binge eating as coping skills with healthier skills. She feels much more stabilized since her recent hospitalization, but feels isolated, hoping to get structure out of this program. Describes mood today as ?okay ?, some anxiety noted. Denies any manic or hypomanic symptoms, does not appear to present in this manner. Does express some anxiety symptoms, feeling nervous, difficulty relaxing. Has had recent medication changes, would rather focus on groups while here rather than any further changes. No SI, reports that she feels safe. Past Psychiatric History: M5 10/2022, discharged 11/30/22. Ip admit 5 years ago for suicidality Patient has both prescriber and therapist Medication trials: Zoloft-which seem to trigger manic episodes; Prozac, Paxil, Lexapro, Wellbutrin, Remeron, clomipramine, amitriptyline, topiramate, lithium, Zyprexa, Depakote, Geodon, clonidine, trazodone, Vyvanse, Lamictal Medical Evaluation Reviewed: Yes [facility] Medical History Bipolar 1 disorder PTSD (post-traumatic stress disorder) Social anxiety disorder Suicidal ideation Family History: Mother: Psychiatric illness Grandparents: Alcohol abuse Social History: Raised by both parents, currently lives with them. One older half brother. 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 Substance History: Remote history cocaine, LSD. Last use several years ago. Chronic longstanding alcohol use since age 16, up to 10 shots daily of vodka. Hospitalized for detox, multiple rehabs, several shelter houses. Reports last drink just prior to hospitalization, 11/19/22. Trauma History: Adult trauma during manic episodes Meds/Allergies Meds Home Medications Medication Instructions Recorded Confirmed Type lisdexamfetamine 30 mg capsule 1 cap PO BID 11/16/22 12/17/22 History (Vyvanse) albuterol sulfate 90 mcg/actuation 2 puff inhalation Q4H 11/17/22 12/17/22 History aerosol inhaler (Ventolin HFA) lamotrigine 25 mg tablet (Lamictal) 25 mg PO DAILY 12/17/22 12/17/22 History Allergies Allergies Allergy/AdvReac Type Severity Reaction Status Date / Time No Known Allergies Allergy Verified 11/16/22 19:31 Mental Status Exam Mental Status Exam Narrative: Well-developed, well-nourished female, in NAD. Appears stated age. C ooperative, fully attentive during interview. Dressed in casual attire. Describes mood as okay, no constriction or lability of affect noted. Denies any SI/HI. Denies AH/VH, does not appear to be responding to internal stimuli in any way. Patient Appearance: Well Grooomed Patient Orientation: Person, Place, Time and Situation Level of Consciousness: Appropriate and Alert Patient Behavior: Appropriate, Cooperative and Good Eye Contact Mood Description: Calm and Appropriate Affect Description: Anxious Patient Cognition Impaired: No Ability to Follow Directions: Good Speech Pattern: Clear Memory Description: Intact Hallucinations: None Delusions: Not Present Thought Process: Intact Thought Content: positive for Intact Depressive Symptoms: Increased Anxiety and Isolating-Friends/Family Judgement: Fair Assessment & Plan Assessment & Plan (1) Bipolar 1 disorder: Status: Acute Code(s): F31.9 - Bipolar disorder, unspecified Assessment and Plan: Patient recently hospitalized well experiencing symptoms of mango, including hallucinations. Patient has been tried many different medications. Recently discharged with mood stabilizer Depakote. However, patient has had medication change since discharge from hospital. Weaned off of Depakote, last took 4 days ago. Has since been started with Lamictal 25 mg. Has also recently been placed back on Vyvanse, started yesterday. Continues with clonidine, trazodone, Topamax. No SI, feels safe. Hoping to gain structure from participating in this program. Hopes to gain healthy coping skills to replace her current scoping skills, which she describes as binge drinking alcohol and binge eating. Has had recent medication changes, feels mood is stable at this time. No further medication changes indicated or requested. (2) PTSD (post-traumatic stress disorder): Status: Acute Code(s): F43.10 - Post-traumatic stress disorder, unspecified Assessment and Plan: Finding clonidine helpful. (3) Social anxiety disorder: Status: Acute Code(s): F40.10 - Social phobia, unspecified Assessment and Plan: Finds clonidine helpful. (4) Alcohol dependence, uncomplicated: Status: Acute Code(s): F10.20 - Alcohol dependence, uncomplicated Assessment and Plan: Patient has been to alcoholics anonymous meetings in the past, several rehabs and jail houses. Currently participates in therapy. Does not have current transportation, states this causes difficulty in getting to any type of support / recovery meetings. Would like to work to build up recovery support network going forward. 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 Stated she would think about this. Plan 1. Continue with current [facility] plan of care. 2. Continue with medications as currently prescribed by outpatient provider. 3. Follow-up as per protocol. Patient educated on: diagnosis, medication risk/benefits, substance abuse and therapeutic strategies Informed Consent: understands Reason for continued partial hosp. stay Substantial Risk for: inability to function and rapid decompensation Certification I certify that partial hospital treatment is medically necessary due to the symptoms and problems resulting from the patient's mental illness and the failure to treat the patient at the partial hospital level of care would likely result in the patient requiring inpatient psychiatric care which could not be prevented at a less intensive level of care. Time Spent With Patient Time: Total time managing care of this patient today ___60
[2022-12-17 14:10] VITALS: BP 92/60; PULSE 100; TEMP 37.5
[2022-12-17 14:39] VITALS: BMI 29.5
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
--- NOTE | 2022-12-21 08:15 | HO.PHP ---
The clients case was reviewed and opened in treatment team
--- NOTE | 2022-12-24 10:41 | HO.PHP ---
I called the client to inquire about her absence. I left a message to call and left karens phone number.
--- NOTE | 2022-12-24 10:50 | HO.PHP ---
[facility] which is also her mothers number.
--- NOTE | 2022-12-24 14:42 | PC.NURSE ---
Ronda did not show up to the program this morning. [facility] staff Fay and My called patient however were unable to reach her thus left messages for her to call them back. Fay Bearden left messages with Ronda's mother who is Ronda's emergency contact to call us back however we have not heard from her as well. I called the [place] [employer] per protocol and requested a wellness check. Shortly after I requested a wellness check patient called and spoke to Fay to state she overslept thus did not make it to the program. She told Fay she will be out tomorrow as well as [facility] thus will be her on Saturday. I called an cancelled the wellness check after consulting with Fay.
--- NOTE | 2022-12-24 14:59 | HO.PHP ---
I called the client and left a message again to call us or we will send the police for a wellness check. . I then called her mother and left the same message. The client called very shortly after and stated that she just woke up. She has been sleeping all day. She states that her mother did not call me back because she wasn't sure she could talk to us about Pilar. She states that she is safe and won't be in tomorrow because she [facility] appointment [facility].
--- NOTE | 2022-12-26 15:49 | HO.PHP ---
The clients mother called and spoke with My. She informed My that Ronda want to the doctor yesterday. She has a UTI and will be out today and tomorrow.
--- NOTE | 2022-12-28 14:55 | HO.PHP ---
The clients mother called . She states that Ronda is still feeling very ill and she is with Ronda at the doctors office now. We discussed having Ronda rest and take care of herself . When she is ready to return she can call for an intake update and restart the program.
--- NOTE | 2023-01-01 11:14 | PC.NURSE ---
Patient taking care of medical issues at [facility] along with her mother. Patient to call the program once resolved.
== END 2023-01-01 23:59 | disposition home or self-care (01) ==
LOC: HO.PHPA 11:30
PROVIDERS: Visit Provider Psychiatry & Neurology Psychiatry
DX: F31.9 Bipolar disorder, unspecified (principal); F43.10 Post-traumatic stress disorder, unspecified; F40.10 Social phobia, unspecified; F10.20 Alcohol dependence, uncomplicated; Z79.899 Other long term (current) drug therapy
CPT/HCPCS: 90791; 90853

== ENCOUNTER 2023-01-18 12:30 | Outpatient (RCR) | payer OTHER, SELFPAY ==
[2023-01-15 13:26] VITALS: BP 110/70; PULSE 100; TEMP 37.2
[2023-01-15 13:30] VITALS: BMI 29.8
--- NOTE | 2023-01-15 15:42 | PC.ADMIT ---
Patient is a 27 year old female who was previously at [facility] program for 3 days and was unable to continue the program d/t medical issues. [facility] and [facility] for severe PID and recently had her IUD removed d/t pain issues. Patient came back to the program today to work on her mental health. She was previously referred from inpatient behavioral health where she was admitted d/t severe anxiety with panic attacks and depression along with possible mango. Patient reportedly making poor decisions at that time. See Integrative Assessment for more information. Patient reports struggling with ETOH use. Reports binge drinking every few months drinking a bottle of Vodka. Last use about the beginning of November however patient is unsure of the exact date. Patient presents with depressed mood and anxious affect. Denied SI or thoughts to harm herself. Patient was given a copy of her safety plan if needed and I reviewed the plan with her. She reports she is struggling with anxiety and depression and reports she has a difficult time with employment. She has a dx of Bipolar d/o with mango. Medications reconciled with patient and patient's pharmacy. Patient reports taking medications as prescribed.
--- NOTE | 2023-01-18 07:54 | HO.PHP ---
Case reviewed and opened in treatment team
--- NOTE | 2023-01-18 09:14 | HO.PS.ADMBH ---
[facility] Date of Service: 01/17/23 Chief Complaint: anxiety,depression Sources of Information: patient interviewed, chart reviewed and crisis/core team assessment reviewed HPI Medical Problems Affecting Mental Status: No Narrative: Patient is a 27-year-old female who was recently at PHP program for 3 days as a step-down from IPLOC at [facility], and was unable to continue the program due to medical issues. Was last here 12/21/2022. Plan was to resume PHP once she recovered. She presents today for re-admission. History of bipolar 1 disorder, PTSD, social anxiety disorder, alcohol use disorder. Please refer to integrated assessment for full details. Engaged with outpatient providers through [facility]. Also attends a DBT group. Has been taking medications, with several recent changes. Since last here several weeks ago, Patient has been experiencing severe anxiety, panic attacks, social anxiety, social withdrawal depression, poor sleep, disordered eating, low self-esteem/self-worth, with difficulty regulating emotions. Denies a history of or current SI, feels safe. Hopeful to resume PHP program, the structure and the skills. She reports she has been having side effects from lamotrigine including rash all over scalp, hair loss. Has not been taking the risperidone regularly. Feels the dose of 30 mg Vyvanse may be too high, she is feeling too stimulated in the evening. Open to discussing medication changes while here. Past Psychiatric History: M5 10/2022, discharged 11/30/22. Ip admit 5 years ago for suicidality Patient has both prescriber and therapist Medication trials: Zoloft-which seem to trigger manic episodes; Prozac, Paxil, Lexapro, Wellbutrin, Remeron, clomipramine, amitriptyline, topiramate, lithium, Zyprexa, Depakote, Geodon, clonidine, trazodone, Vyvanse, Lamictal Medical Evaluation Reviewed: Yes [facility] Medical History Bipolar 1 disorder PTSD (post-traumatic stress disorder) Social anxiety disorder Suicidal ideation Family History: Mother: Psychiatric illness Grandparents: Alcohol abuse Social History: Raised by both parents, currently lives with them. One older half brother. 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 Substance History: History of 6 detox/rehab admissions, has been in custodial houses, sober houses. Alcohol: Since age 16, up to 10 shots daily at times, last use October 2022. Trauma History: Adult trauma during manic episodes Diagnostics Vital Signs (24Hr): BMI result Body Mass Index 29.8 Meds/Allergies Meds Home Medications Medication Instructions Recorded Confirmed Type lisdexamfetamine 30 mg capsule 1 cap PO BID 11/16/22 01/15/23 History (Vyvanse) albuterol sulfate 90 mcg/actuation 2 puff inhalation Q4H 11/17/22 01/15/23 History aerosol inhaler (Ventolin HFA) topiramate 100 mg tablet 200 mg PO BEDTIME 12/21/22 01/15/23 History clonidine HCl 0.1 mg tablet 0.1 mg PO DAILY PRN Panic Attack(S) 01/15/23 01/15/23 History clonidine HCl 0.1 mg tablet 0.2 mg PO BEDTIME 01/15/23 01/15/23 History folic acid 1 mg tablet 1 mg PO DAILY 01/15/23 01/15/23 History norethindrone (contraceptive) 0.35 0.35 mg PO DAILY 01/15/23 01/15/23 History mg tablet risperidone 0.5 mg tablet 0.5 mg PO DAILY PRN Anxiety 01/15/23 01/15/23 History (Risperdal) Allergies Allergies Allergy/AdvReac Type Severity Reaction Status Date / Time sulfamethoxazole Allergy Itching, Verified 01/15/23 13:50 [From Bactrim] swelling of the lips. trimethoprim [From Bactrim] Allergy Itching, Verified 01/15/23 13:50 swelling of the lips. Mental Status Exam Mental Status Exam Narrative: Well-developed, well-nourished female, in NAD. Appears stated age. Cooperative, fully attentive during interview. Dressed in casual attire. Describes mood as anxious and depressed. No constriction or lability of affect noted. Denies any SI/HI. Denies AH/VH, does not appear to be responding to internal stimuli in any way. Patient Appearance: Well Grooomed Patient Orientation: Person, Place, Time and Situation Level of Consciousness: Appropriate and Alert Patient Behavior: Appropriate, Cooperative and Good Eye Contact Mood Description: Depressed and Anxious Affect Description: Depressed and Anxious Patient Cognition Impaired: No Ability to Follow Directions: Good Speech Pattern: Clear Memory Description: Intact Hallucinations: None Delusions: Not Present Thought Process: Intact Thought Content: positive for Intact Depressive Symptoms: Increased Anxiety, Difficulty Sleeping, Loss of Int. in Activity, Isolating-Friends/Family, Feelings of Guilt, Low Self Esteem and Loss of Energy Judgement: Fair Assessment & Plan Assessment & Plan (1) Bipolar 1 disorder: Status: Acute Code(s): F31.9 - Bipolar disorder, unspecified Assessment and Plan: Patient is a 27-year-old female history of bipolar 1, PTSD, social anxiety disorder. Had recently been engaged in this program in early December, had to leave due to medical issues. Presents today for readmission. Since last year has had increase in anxiety and depressive symptoms. Denies any manic/hypomanic episode in past several weeks. Has been taking lamotrigine, has been having hair loss and rash all over scalp. We discussed stopping lamotrigine at this time. She has tried both Depakote and lithium in the past, had a bad reaction to lithium, did not want Depakote. Discussed possible options going forward. She has been taking the risperidone sporadically. Discussed taking it daily at bedtime over weekend. She was in agreement to try this. She has been taking Vyvanse BID for binge eating. She states that she feels this dose is too high, and that she feels overstimulated in the evening. We discussed holding evening does, she was in agreement. Denies SI, no thoughts of harm to self or others, no safety concerns. Reports has remained abstinent from alcohol. (2) PTSD (post-traumatic stress disorder): Status: Acute Code(s): F43.10 - Post-traumatic stress disorder, unspecified (3) Social anxiety disorder: Status: Acute Code(s): F40.10 - Social phobia, unspecified (4) Alcohol dependence, uncomplicated: Status: Acute Code(s): F10.20 - Alcohol dependence, uncomplicated Plan 1. Continue with current [facility] plan of care. 2. Stop lamotrigine. 3. Take risperidone daily at bedtime. Patient already has a p.r.n. script. 4. Hold p.m. dose of Vyvanse. 5. Follow-up as per protocol. Patient educated on: diagnosis, medication risk/benefits, substance abuse and therapeutic strategies Informed Consent: understands Reason for continued partial hosp. stay Substantial Risk for: inability to function, rapid decompensation and med/psych decompensation Certification I certify that partial hospital treatment is medically necessary due to the symptoms and problems resulting from the patient's mental illness and the failure to treat the patient at the partial hospital level of care would likely result in the patient requiring inpatient psychiatric care which could not be prevented at a less intensive level of care. Time Spent With Patient Time: Total time managing care of this patient today _40___ minutes.
--- NOTE | 2023-01-21 09:38 | HO.PHP ---
I called the client to inquire about her absence. I left a message to call back.
--- NOTE | 2023-01-21 15:27 | HO.PHP ---
I called the clients mother who is her emergency contact. She states that Ronda did not come home last nights and appears to be using substances. She does not know where she is. I told her that I would call the police to have them do a wellness check.
--- NOTE | 2023-01-21 15:46 | HO.PHP ---
I called the [place] police department to request a wellness check for Pilclarissa. I spoke with officer # [id number] and he said that although they are very busy someone will be going out within the hour. They will call back to inform us of the outcome of the visit.
--- NOTE | 2023-01-22 14:28 | HO.PHP ---
The client was called when she did not come in for program. She reports that she has been out looking for a missing friend.
--- NOTE | 2023-01-23 15:24 | HO.PHP ---
When Ronda did not come in or call I called the clients mother who states that Ronda is missing and she is going to call the police to file a missing persons report. She states that she knows that she is somewhere with friends although Ronda has not called her .
== END 2023-01-18 23:59 | disposition home or self-care (01) ==
LOC: HO.PHPA 12:30
PROVIDERS: Visit Provider Psychiatry & Neurology Psychiatry
DX: F31.9 Bipolar disorder, unspecified (principal); F43.10 Post-traumatic stress disorder, unspecified; F40.10 Social phobia, unspecified; F10.20 Alcohol dependence, uncomplicated
CPT/HCPCS: 90791; 90853

== ENCOUNTER 2023-01-26 15:06 | Emergency (ER) | payer OTHER, SELFPAY ==
--- NOTE | ~2023-01-26 | XR_ITS ---
EXAMINATION: XR LUMBOSACRAL SPINE CLINICAL INFORMATION: Pain. COMPARISON: None available. TECHNIQUE: Three views of the lumbosacral spine. FINDINGS: The vertebral bodies and posterior elements are normal. The disc spaces are preserved and the vertebral alignment is normal. The paraspinal soft tissues are normal. XR/XR lumbar spine 2-3V IMPRESSION: Unremarkable examination.
[2023-01-26 15:50] VITALS: BP 114/58; PULSE 88; RESP 18; TEMP 36.9; O2SAT 98; BMI 29.8
--- NOTE | 2023-01-26 15:50 | ED.GENADULT ---
HPI - General Adult General Chief complaint: Back Pain/Injury <ZAY Maurice - Last Filed: 01/26/23 15:50> Stated complaint: Migraines/ Back pain <ZAY Maurice - Last Filed: 01/26/23 15:50> Time Seen by Provider: 01/26/23 15:49 <ZYA Maurice - Last Filed: 01/26/23 15:50> Source: patient and RN notes reviewed <ZAY Otto Last Filed: 01/26/23 19:07> Mode of arrival: ambulatory <ZAY Otto Last Filed: 01/26/23 19:07> Limitations: no limitations <ZAY Otto Last Filed: 01/26/23 19:07> History of Present Illness HPI narrative: This is a 27-year-old female, with a past medical history migraines, alcohol dependency, PTSD, bipolar 1 disorder, and social anxiety disorder who presents to the emergency department today with complaints of ongoing migraine X6 months and back pain x years. Patient reports that she gets migraines almost every day. She reports that these headaches are so debilitating that she is unable to attend her IOP programs for alcohol abuse. She also reports that she has had back pain every day denies any recent trauma or injury. She reports that her back pain worsens with prolonged sitting as well as at bedtime. She often times has to adjust her positioning to help with her back pain. Regular she does not have a neurologist, nor has she ever been seen by neurologist for her chronic headaches. She has a psychiatrist that started her on Topamax and believes that her dose needs to be increased to better manage her headaches. she denies any fevers, chills, night sweats, nausea, vomiting, diarrhea. Denies any urinary or bowel incontinence. Denies any dysuria, urinary frequency, urgency, or hematuria. No other complaints or concerns at this time. <ZAY Otto Last Filed: 01/26/23 19:07> MD complaint: headache, back pain <ZAY Otto Last Filed: 01/26/23 19:07> Onset (ago): month(s) <ZAY Otto Last Filed: 01/26/23 19:07> Radiation: back and neck <ZAY Otto - Last Filed: 01/26/23 19:07> Severity: moderate <ZAY Otto - Last Filed: 01/26/23 19:07> Quality: aching <ZAY Otto - Last Filed: 01/26/23 19:07> Pain Consistency: constant <ZAY Otto - Last Filed: 01/26/23 19:07> Relieving factors: none <ZAY Otto - Last Filed: 01/26/23 19:07> Exacerbating factors: none <ZAY Otto - Last Filed: 01/26/23 19:07> Associated symptoms: denies other symptoms <ZAY Otto - Last Filed: 01/26/23 19:07> Treatments prior to arrival: none <ZAY Otto - Last Filed: 01/26/23 19:07> Related Data Home medications: Home Medications Medication Instructions Recorded Confirmed lisdexamfetamine 30 mg capsule 1 cap PO BID 11/16/22 01/15/23 (Vyvanse) albuterol sulfate 90 mcg/actuation 2 puff inhalation Q4H 11/17/22 01/15/23 aerosol inhaler (Ventolin HFA) topiramate 100 mg tablet 200 mg PO BEDTIME 12/21/22 01/15/23 clonidine HCl 0.1 mg tablet 0.1 mg PO DAILY PRN Panic Attack(S) 01/15/23 01/15/23 clonidine HCl 0.1 mg tablet 0.2 mg PO BEDTIME 01/15/23 01/15/23 folic acid 1 mg tablet 1 mg PO DAILY 01/15/23 01/15/23 norethindrone (contraceptive) 0.35 0.35 mg PO DAILY 01/15/23 01/15/23 mg tablet risperidone 0.5 mg tablet 0.5 mg PO DAILY PRN Anxiety 01/15/23 01/15/23 (Risperdal) Previous Rx's Medication Instructions Recorded trazodone 100 mg tablet 200 mg PO BEDTIME 30 days #60 tabs 11/29/22 cyclobenzaprine 5 mg tablet 5 mg PO BID PRN muscle spasm #20 01/26/23 tabs <ZAY Maurice - Last Filed: 01/26/23 15:50> Allergies/adverse reactions: Allergies Allergy/AdvReac Type Severity Reaction Status Date / Time sulfamethoxazole Allergy Itching, Verified 01/26/23 15:49 [From Bactrim] swelling of the lips. trimethoprim [From Bactrim] Allergy Itching, Verified 01/26/23 15:49 swelling of the lips. <ZAY Maurice - Last Filed: 01/26/23 15:50> Review of Systems Review of Systems: Yes all other systems are reviewed and are negative <ZAY Otto - Last Filed: 01/26/23 19:07> PMF Past Medical History Medical History: Medical History (Updated 01/26/23 @ 18:54 by ZAY Otto) Bacterial vaginosis Bipolar 1 disorder Interstitial cystitis PID (pelvic inflammatory disease) PTSD (post-traumatic stress disorder) Sciatica of left side Social anxiety disorder Suicidal ideation <ZAY Maurice - Last Filed: 01/26/23 15:50> Social History Social History: Social History Household Members: Family Household Members Other:: Grandfather Housing: Homeless Do you presently have visiting nurse or other home services: No Patient Tobacco Use Status: Former Tobacco user e-Cigarette/Vaping Use: Never Used Second Hand Smoke Exposure: No Substance Use Type: Amphetamines and Sedatives Advance Directives: No Advance Directives Information Provided: No service: No Sexual orientation: Straight/Heterosexual <ZAY Maurice - Last Filed: 01/26/23 15:50> Physical Exam ED Vital Signs: Vital Signs - 24 hr 01/26/23 15:50 Temperature 98.5 F Pulse Rate 88 Respiratory Rate 18 Blood Pressure 114/58 L Pulse Oximetry 98 Oxygen Delivery Method Room Air BMI result Body Mass Index 29.8 <ZAY Maurice - Last Filed: 01/26/23 15:50> Vital Signs - 24 hr 01/26/23 15:50 Temperature 98.5 F Pulse Rate 88 Respiratory Rate 18 Blood Pressure 114/58 L Pulse Oximetry 98 Oxygen Delivery Method Room Air BMI result Body Mass Index 29.8 <ZAY Otto Last Filed: 01/26/23 19:07> Appearance: Alert. Oriented X3. No acute distress. Eyes: Pupils equal, round and reactive to light. EOMI ENT: Pharynx normal. oropharynx is nonerythematous, nonedematous, no tonsillar hypertrophy or exudates. Neck: Normal inspection. Neck supple. tenderness along the occiput, with tenderness to palpation along the bilateral trapezius with spasm, extending to her midthoracic paraspinous muscles. Range of motion of the neck is full and intact. CVS: Normal heart rate and rhythm. Pulses normal. S1-S2 regular, no murmurs rubs or gallops. Respiratory: No respiratory distress. Breath sounds normal. Lungs clear to auscultation bilaterally Skin: Skin warm and dry. Normal skin color. Normal skin turgor. No rashes. Extremities: No lower extremity edema. Back: Tenderness to palpation throughout the entire back even with light palpation, worsen the thoracic and lumbar region. no midline spine tenderness Neuro: Oriented X 3. No motor deficit. No sensory deficit. CN II-XII intact. strength 5/5 in upper and lower extremities bilaterally <ZAY Otto - Last Filed: 01/26/23 19:07> Course Course Course Narrative: RME performed by Ember Kat PA-C. Patient is a 27 year old assigned female at presenting to the emergency department with a migraine. Patient states that she has a history of chronic migraines and is having another one today. Patient states that the pain is so bad she can't sleep. Labs ordered. Patient placed back in the waiting room pending room availability and results. <ZAY Maurice - Last Filed: 01/26/23 15:50> Medical Decision Making Medical Decision Making MDM Narrative: 27-year-old female presenting to the emergency department for evaluation of ongoing headaches x6 months and back pain x years. Patient is afebrile, vital signs within normal limits. On examination patient has tenderness to her occiput, and bilateral trapezius muscle tenderness with spasms noted throughout. Tenderness to palpation even with light touch throughout the entire back, no midline spine tenderness. Strength is 5/5 in upper and lower extremities. Patient is neurologically intact. Patient's symptoms consistent with attention type headache secondary to all the muscle spasm she has in her neck. Patient has good range of motion of her neck. Patient does not currently have a primary care physician at this time as I discussed at length that her headaches would be better managed through a neurologist. discharge patient on a prescription for muscle relaxers. Patient declines prescription for ibuprofen at this time. Advised gentle stretching, massage, and warm compresses can help alleviate some of her symptoms. Patient given instructions on when to return. Patient understands and agrees with plan. <ZAY Otto - Last Filed: 01/26/23 19:07> Differential Diagnosis Differential Diagnoses: The differential diagnosis associated with the presentation includes <ZAY Otto - Last Filed: 01/26/23 19:07> Tension headache, migraine headache, cluster headache, lumbar strain, lumbars sprain, muscle spasm <ZAY Otto - Last Filed: 01/26/23 19:07> Lab Data MDM Lab Attestation statement: I reviewed the patient's lab results. <ZAY Otto - Last Filed: 01/26/23 19:07> Result Diagrams: 01/26/23 15:58 01/26/23 15:58 <ZAY Maurice - Last Filed: 01/26/23 15:50> Labs: Lab Results 01/26/23 01/26/23 Range/Units 15:58 15:58 WBC 8.6 (4.8-10.8) X10*3/uL RBC 4.01 L (4.20-5.50) X10*6/uL Hgb 12.1 (12.0-16.0) g/dl Hct 36.9 L (37.0-47.0) % MCV 92.0 (80.0-98.0) fL MCH 30.2 (27.0-33.0) pg MCHC 32.8 (31.0-35.0) g/dl RDW 12.6 (11.0-16.0) % Plt Count 305 (160-400) X10*3/uL MPV 9.6 (9.4-12.3) fL Immature Gran % (Auto) 0.2 (0.0-0.4) % Neut % (Auto) 64.5 (45-73) % Lymph % (Auto) 24.0 (20-40) % Marathon % (Auto) 8.7 (2-11) % Eos % (Auto) 2.1 (0-4) % Baso % (Auto) 0.5 (0-2) % Lymph # (Auto) 2.1 (1.2-4.9) X10*3/uL Marathon # (Auto) 0.7 (0.1-1.2) X10*3/uL Eos # (Auto) 0.2 (0.0-0.4) X10*3/uL Baso # (Auto) 0.0 (0.0-0.2) X10*3/uL Abs Immat Gran (auto) 0.02 (0.00-0.03) X10*3/uL Absolute Neuts (auto) 5.5 (2.0-8.3) x10*3/uL Absolute Nucleated RBC 0.000 (0.0-0.012) X10*3/uL Nucleated RBC % (auto) 0.0 (0.0-0.2) /100WBC Sodium 143 (135-145) mmol/L Potassium 4.1 (3.3-5.1) mmol/L Chloride 112 H (96-108) mmol/L Carbon Dioxide 22 (22-29) mmol/L Anion Gap 13 (12-20) BUN 7 L (9-16) mg/dL Creatinine 0.66 (0.5-1.4) mg/dL Estim Creat Clear Calc 130.1 Estimated GFR > 60 Random Glucose 116 H (60-115) mg/dL Calcium 8.9 (8.4-10.2) mg/dL Magnesium 1.6 (1.6-2.6) mg/dL Total Bilirubin 0.2 (0.0-1.0) mg/dL AST 24 (5-31) U/L ALT 32 H (0-31) U/L Alkaline Phosphatase 40 (39-117) U/L Total Protein 6.0 L (6.5-8.0) g/dL Albumin 3.9 (3.5-5.0) g/dL <ZAY Maurice - Last Filed: 01/26/23 15:50> Lab Results 01/26/23 01/26/23 Range/Units 15:58 15:58 WBC 8.6 (4.8-10.8) X10*3/uL RBC 4.01 L (4.20-5.50) X10*6/uL Hgb 12.1 (12.0-16.0) g/dl Hct 36.9 L (37.0-47.0) % MCV 92.0 (80.0-98.0) fL MCH 30.2 (27.0-33.0) pg MCHC 32.8 (31.0-35.0) g/dl RDW 12.6 (11.0-16.0) % Plt Count 305 (160-400) X10*3/uL MPV 9.6 (9.4-12.3) fL Immature Gran % (Auto) 0.2 (0.0-0.4) % Neut % (Auto) 64.5 (45-73) % Lymph % (Auto) 24.0 (20-40) % Marathon % (Auto) 8.7 (2-11) % Eos % (Auto) 2.1 (0-4) % Baso % (Auto) 0.5 (0-2) % Lymph # (Auto) 2.1 (1.2-4.9) X10*3/uL Marathon # (Auto) 0.7 (0.1-1.2) X10*3/uL Eos # (Auto) 0.2 (0.0-0.4) X10*3/uL Baso # (Auto) 0.0 (0.0-0.2) X10*3/uL Abs Immat Gran (auto) 0.02 (0.00-0.03) X10*3/uL Absolute Neuts (auto) 5.5 (2.0-8.3) x10*3/uL Absolute Nucleated RBC 0.000 (0.0-0.012) X10*3/uL Nucleated RBC % (auto) 0.0 (0.0-0.2) /100WBC Sodium 143 (135-145) mmol/L Potassium 4.1 (3.3-5.1) mmol/L Chloride 112 H (96-108) mmol/L Carbon Dioxide 22 (22-29) mmol/L Anion Gap 13 (12-20) BUN 7 L (9-16) mg/dL Creatinine 0.66 (0.5-1.4) mg/dL Estim Creat Clear Calc 130.1 Estimated GFR > 60 Random Glucose 116 H (60-115) mg/dL Calcium 8.9 (8.4-10.2) mg/dL Magnesium 1.6 (1.6-2.6) mg/dL Total Bilirubin 0.2 (0.0-1.0) mg/dL AST 24 (5-31) U/L ALT 32 H (0-31) U/L Alkaline Phosphatase 40 (39-117) U/L Total Protein 6.0 L (6.5-8.0) g/dL Albumin 3.9 (3.5-5.0) g/dL <ZAY Otto - Last Filed: 01/26/23 19:07> Independent Interpretation I performed an independent interpretation of an: Plain X-Ray <ZAY Otto Last Filed: 01/26/23 19:07> Radiology Impression Discussion of test interpretation with radiology: I have reviewed the radiologist's reading. <ZAY Otto Last Filed: 01/26/23 19:07> Radiologist Impression: EXAMINATION: XR LUMBOSACRAL SPINE CLINICAL INFORMATION: Pain. COMPARISON: None available. TECHNIQUE: Three views of the lumbosacral spine. FINDINGS: The vertebral bodies and posterior elements are normal. The disc spaces are preserved and the vertebral alignment is normal. The paraspinal soft tissues are normal. XR/XR lumbar spine 2-3V IMPRESSION: Unremarkable examination. Dictated By: Renetta Pisano Signed By: <Electronically signed by Renetta? Aliya in OV> DD/ 08 TD/TT:? Gluing Machine Adjuster: <ZAY Otto Last Filed: 01/26/23 19:07> Prescription Management I considered prescription management with: Pain Medication <ZAY Otto Last Filed: 01/26/23 19:07> Discharge Plan Discharge Clinical Impression: Acute tension headache <ZAY Maurice Last Filed: 01/26/23 15:50> Patient Disposition: Home, Self-Care <ZAY Maurice Last Filed: 01/26/23 15:50> Instructions: Tension Headache (ED) <ZAY Maurice Last Filed: 01/26/23 15:50> Additional Instructions: Take muscle relaxer as directed. Please be aware that this may cause drowsiness, do not drink alcohol or operate any heavy machinery while taking these mediations. [id number] ibuprofen and Tylenol can be helpful for your symptoms. Please be aware that this can cause rebound headaches. Gentle stretching, warm compresses, massage can help alleviate some of the muscle spasms to have in your neck. Please follow-up with a primary care physician as they can help assist you with getting a referral to see a neurologist for better management of your headaches. If any new or worsening symptoms occur please return for further evaluation. <ZAY Maurice - Last Filed: 01/26/23 15:50> Prescriptions: New cyclobenzaprine 5 mg tablet 5 mg PO BID PRN (Reason: muscle spasm) Qty: 20 0RF No Action topiramate 100 mg tablet 200 mg PO BEDTIME Vyvanse 30 mg capsule 1 cap PO BID Hold Instructions: Resume on 12/19/22. discuss with outpt provider albuterol sulfate [Ventolin HFA] 90 mcg/actuation HFA aerosol inhaler 2 puff INHALATION Q4H trazodone 100 mg Tablet 200 mg PO BEDTIME 30 Days Qty: 60 0RF clonidine HCl 0.1 mg Tablet 0.2 mg PO BEDTIME Rx Instructions: Take 2 tabs at bedtime. clonidine HCl 0.1 mg Tablet 0.1 mg PO DAILY PRN (Reason: Panic Attack(S)) folic acid 1 mg Tablet 1 mg PO DAILY norethindrone (contraceptive) 0.35 mg tablet 0.35 mg PO DAILY risperidone [Risperdal] 0.5 mg Tablet 0.5 mg PO DAILY PRN (Reason: Anxiety) <ZAY Maurice - Last Filed: 01/26/23 15:50>
[2023-01-26 16:02] LABS: MANUAL DIFF FLAG NO
[2023-01-26 16:06] LABS: Basophils Percent Auto 0.5 % (0-2); Eosinophils Absolute Auto 0.2 X10*3/uL (0.0-0.4); Eosinophils Percent Auto 2.1 % (0-4); Hematocrit 36.9 % (37.0-47.0); Hemoglobin 12.1 g/dl (12.0-16.0); Imm Gran Abs Auto 0.02 X10*3/uL (0.00-0.03); Imm Gran Pct Auto 0.2 % (0.0-0.4); Lymphocytes Absolute Auto 2.1 X10*3/uL (1.2-4.9); Mean Corpuscular HGB Conc 32.8 g/dl (31.0-35.0); Mean Corpuscular Hemoglobin 30.2 pg (27.0-33.0); Mean Platelet Volume 9.6 fL (9.4-12.3); Monocytes Absolute Auto 0.7 X10*3/uL (0.1-1.2); Monocytes Percent Auto 8.7 % (2-11); Neutrophils Absolute Auto 5.5 x10*3/uL (2.0-8.3); Neutrophils Percent Auto 64.5 % (45-73); Platelet Count 305 X10*3/uL (160-400); Red Blood Count 4.01 X10*6/uL (4.20-5.50); Red Cell Distribution Width 12.6 % (11.0-16.0); White Blood Count 8.6 X10*3/uL (4.8-10.8)
[2023-01-26 16:35] LABS: Alanine Aminotransferase 32 U/L (0-31); Albumin Level 3.9 g/dL (3.5-5.0); Alkaline Phosphatase 40 U/L (39-117); Anion Gap 13 (12-20); Aspartate Amino Transferase 24 U/L (5-31); Bilirubin Total 0.2 mg/dL (0.0-1.0); Blood Urea Nitrogen 7 mg/dL (9-16); Calcium 8.9 mg/dL (8.4-10.2); Carbon Dioxide 22 mmol/L (22-29); Chloride 112 mmol/L (96-108); Creatinine Clr Calc Pharmacy 130.1; Estimated Glomerular Filt Rate > 60; Glucose Random 116 mg/dL (60-115); Magnesium 1.6 mg/dL (1.6-2.6); Potassium 4.1 mmol/L (3.3-5.1); Sodium 143 mmol/L (135-145)
--- OUTSIDE RECORDS SUMMARY | 2023-01-26 17:29 | XMS_ITS | Continuity of Care Document ---
Author Name Unknown Organization [facility] Address [address] [place] [address]- Care Team Providers Care Retort Forker Name Role Phone Jose SIU, Kalyn Primary Care Physician [place] [facility] 04/27/20 - 04/27/[address] [address]- [facility] Discharge Disposition: A-D/C Walkout Attending Physician: Not on Staff, Attending MD Admitting Physician: Not on Staff, Admitting MD Referring Physician: Not on Staff, Referring MD Allergies, Adverse Reactions, Alerts Substance Reaction Severity Status Bactrim Angioedema Persistent Severe Active Immunizations Not Given Vaccine Date Status Refusal Reason pneumococcal 23-valent vaccine 1 06/16/19 Not Give n Patient Refuses pneumococcal 23-valent vaccine 04/19/19 Not Given Patient Refuses 1Result Note: does not want a shot Medications busPIRone 10 mg oral tablet 10 mg, By Mouth, 3 times a day, # 90 tablet, Refills 0, Tot. Refills 0, Maintenance, 06/19/19 9:32:08 EDT, Route to Pharmacy Electronically, [id number], [facility] Start Date: 06/19/19 Status: Ordered diphenhydrAMINE 25 mg oral tablet = 25 mg, By Mouth, Every 4 hours, PRN Anxiety, # 48 tablet, 0 Refills, Maintenance, 06/19/19 9:39:48 EDT, Tablet Start Date: 06/19/19 Status: Ordered FLUoxetine 40 mg oral capsule 1 capsule = 40 mg, By Mouth, Daily, # 30 capsule, 0 Refills, Maintenance, 06/19/19 9:34:35 EDT, Capsule Start Date: 06/19/19 Status: Ordered folic acid 1 mg oral tablet 1 mg, 1, tablet, By Mouth, Daily, # 30 tablet, Refills 0, Tot. Refills 0, Maintenance, 06/19/19 9:32:32 EDT, Route to Pharmacy Electronically, [id number], [facility] 3 Start Date: 06/19/19 Stop Date: 07/19/19 Status: Ordered ibuprofen 600 mg oral tablet 600 mg, By Mouth, 3 times a day, PRN, # 30 tablet, Refills 0, Tot. Refills 0, Maintenance, Pain , Mild, 06/19/19 9:40:58 EDT, Route to Pharmacy Electronically, [id number], [facility] 3 Start Date: 06/19/19 Status: Ordered multivitamin Multiple Vitamins oral tablet 1 tablet, By Mouth, Daily, # 30 tablet, 0 Refills, Maintenance, 06/19/19 9:37:21 EDT, Tablet, 1 tablet By Mouth Daily,x30 days Start Date: 06/19/19 Stop Date: 07/19/19 Status: Ordered naltrexone 50 mg oral tablet = 50 mg, By Mouth, Daily, # 30 tablet, 0 Refills, Maintenance, 06/19/19 9:33:12 EDT, Tablet Start Date: 06/19/19 Stop Date: 07/20/19 Status: Ordered prazosin 1 mg oral capsule 2 mg, By Mouth, Daily at bedtime, # 60 capsule, Refills 0, Tot. Refills 0, Maintenance, 06/19/19 9:33:16 EDT, Route to Pharmacy Electronically, [id number], [facility] 3 Start Date: 06/19/19 Status: Ordered thiamine 100 mg oral tablet 100 mg, 1, tablet, By Mouth, Daily, # 30 tablet, Refills 0, Tot. Refills 0, Maintenance, 06/19/19 9:32:34 EDT, Route to Pharmacy Electronically, [id number], [facility] 3 Start Date: 06/19/19 Stop Date: 07/19/19 Status: Ordered traZODone 50 mg oral tablet 50 mg, 1, tablet, By Mouth, Daily at bedtime, # 30 tablet, Refills 0, Maintenance, 11/28/19 8:32:00EST Start Date: 11/28/19 Status: Ordered Tylenol 325 mg oral tablet 650 mg, By Mouth, Every 4 hours, PRN, Refills 0, Maintenance, Pain , Mild Headache, 06/12/19 10:50:08 EDT Start Date: 06/12/19 Status: Ordered Wellbutrin XL = 100 mg, By Mouth, Every 24 hours, 0 Refills, Maintenance, 11/28/19 8:36:00 EST Start Date: 11/28/19 Status: Ordered Problem List Condition Effective Dates Status Health Status Inform ant Interstitial cystitis(Confirmed) Active Eating disorder NOS(Confirmed) Active Social History Social History Type Response Smoking Status 10 or more cigarette s (1/2 pack or more)/day in last 30 days entered on: 01/07/20 Sex
--- OUTSIDE RECORDS SUMMARY | 2023-01-26 17:29 | XMS_ITS | Continuity of Care Document ---
Author Name Unknown Organization [facility] Address [address] [place] [address]- Care Team Providers Care Digital Composer Name Role Phone Kalyn Garcia MD Primary Care Physician Encounter [facility] Date(s): 11/28/19 - 11/28/[address] [address]- [place] Encounter Diagnosis Encounter for IUD removal(Final) - 11/28/19 Discharge Disposition: A-D/C Home Attending Physician: Hitesh Michaels MD Admitting Physician: Hitesh Michaels MD Referring Physician: Not on Staff, Referring [...] 06/19/19 9:32:08 EDT, Route to Pharmacy Electronically, [id number], [facility] Start Date: 06/19/19 Status: Ordered [...] 06/19/19 9:32:32 EDT, Route to Pharmacy Electronically, [id number], [facility] 3 Start Date: 06/19/19 Stop Date: 07/19/19 Status: Ordered ibuprofen 600 mg oral tablet 600 mg, By Mouth, 3 times a day, PRN, # 30 tablet, Refills 0, Tot. Refills 0, Maintenance, Pain , Mild, 06/19/19 9:40:58 EDT, Route to Pharmacy Electronically, [id number], [facility] 3 Start Date: 06/19/19 Status: [...] 06/19/19 9:33:16 EDT, Route to Pharmacy Electronically, [id number], [facility] 3 Start Date: 06/19/19 Status: Ordered thiamine 100 mg oral tablet 100 mg, 1, tablet, By Mouth, Daily, # 30 tablet, Refills 0, Tot. Refills 0, Maintenance, 06/19/19 9:32:34 EDT, Route to Pharmacy Electronically, [id number], [facility] Start Date: 06/19/19 Stop Date: 07/19/19 [...] Interstitial cystitis(Confirmed) Active Eating disorder NOS(Confirmed) Active Vital Signs Most recent to oldest [Reference Range]: 1 Height 161 cm (11/28/19 8:27 AM) Weight 60.6 kg (11/28/19 8:27 AM) Oxygen Saturation [94-100 %] 100 % (11/28/19 8:27 AM) Pulse Rate [55-90 bpm] 83 bpm (11/28/19 8:27 AM) Blood Pressure [90-138/55-84 mm Hg] 96/6 1mm Hg (11/28/19 8:27 AM) Respiratory Rate [16-30 br/min] 18 br/mi n (11/28/19 8:27 AM) Temperature [96.8-100.4 DegF] 98.3 DegF (11/28/19 8:27 AM) Mode of Delivery (Oxygen) Room air (11/28/19 8:27 AM) Blood pressure sites Arm, right (11/28/19 8:27 AM) Temperature Route Temporal (11/28/19 8:27 AM) Dry Weight 60.6 kg (11/28/19 8:27 AM) Weight Obtained Via Standing scale (11/28/19 8:27 AM) Social History Social History Type Response Smoking Status 5-9 cigarettes (betw een 1/4 to 1/2 pack)/day in last 30 days entered on: 11/28/19 Sex
--- OUTSIDE RECORDS SUMMARY | 2023-01-26 17:29 | XMS_ITS | Continuity of Care Document ---
Author Name Unknown Organization [facility] Address [address] [place] [address]- Care Team Providers Care Propulsion Engineer Name Role Phone Kalyn Garcia MD Primary Care Physician Encounter [facility] [place] Date(s): 11/05/19 - 11/05/[address] [address] [phone] Discharge Disposition: A-D/C Home Attending Physician: Cornelius York MD Admitting Physician: Cornelius York MD Referring Physician: Not on Staff, Referring [...] 06/19/19 9:32:08 EDT, Route to Pharmacy Electronically, [id number], [facility] Start Date: 06/19/19 Status: [...] 06/19/19 9:32:32 EDT, Route to Pharmacy Electronically, [id number], [facility] 3 Start Date: 06/19/19 Stop Date: 07/19/19 Status: Ordered ibuprofen 600 mg oral tablet 600 mg, By Mouth, 3 times a day, PRN, # 30 tablet, Refills 0, Tot. Refills 0, Maintenance, Pain , Mild, 06/19/19 9:40:58 EDT, Route to Pharmacy Electronically, [id number], [facility] 3 Start Date: 06/19/19 Status: Ordered melatonin 3 mg oral tablet 1 tablet = 3 mg, By Mouth, Daily at bedtime, # 30 tablet, 0 Refills, Maintenance, 06/19/19 9:32:52 EDT, Tablet Start Date: 06/19/19 Stop Date: 07/20/19 Status: Ordered multivitamin Multiple Vitamins oral tablet [...] 06/19/19 9:33:16 EDT, Route to Pharmacy Electronically, [id number], [facility] 3 Start Date: 06/19/19 Status: Ordered thiamine 100 mg oral tablet 100 mg, 1, tablet, By Mouth, Daily, # 30 tablet, Refills 0, Tot. Refills 0, Maintenance, 06/19/19 9:32:34 EDT, Route to Pharmacy Electronically, [id number], [facility] 3 Start Date: 06/19/19 Stop Date: 07/19/19 Status: Ordered Tylenol 325 mg oral tablet 650 mg, By Mouth, Every 4 hours, PRN, Refills 0, Maintenance, Pain , Mild Headache, 06/12/19 10:50:08 EDT Start Date: 06/12/19 Status: Ordered Problem List Condition Effective Dates Status Health Status Inform ant Interstitial cystitis(Confirmed) Active Eating disorder NOS(Confirmed) Active Vital Signs Most recent to oldest [Reference Range]: 1 2 3 Height 160 cm (11/05/19 5:03 PM) 160 cm (11/05/19 3:28 PM) 160 cm (11/05/19 1:17 PM) Weight 61.5 kg (11/05/19 5:03 PM) 61.5 kg (11/05/19 3:28 PM) 61.5 kg (11/05/19 1:17 PM) Oxygen Saturation [94-100 %] 100 % (11/05/19 5:03 PM) 98 % (11/05/19 3:28 PM) 99 % (11/05/19 1:17 PM) Pulse Rate [55-90 bpm] 111 bpm *H* (11/05/19 5:03 PM) 105 bpm *H* (11/05/19 3:28 PM) 105 bpm *H* (11/05/19 3:20 PM) Body Mass Index [18.5-24.99] 24.02 (11/05/19 5:03 PM) 24.02 (11/05/19 3:28 PM) 24.02 (11/05/19 1:17 PM) Blood Pressure [90-138/55-84 mm Hg] 113/76mm Hg (11/05/19 5:03 PM) 95/54mm Hg (11/05/19 3:28 PM) 95/54mm Hg (11/05/19 3:20 PM) Respiratory Rate [16-30 br/min] 16 br/min (11/05/19 5:03 PM) 16 br/min (11/05/19 4:49 PM) 16 br/min (11/05/19 3:28 PM) Temperature [96.8-100.4 DegF] 98.2 DegF (11/05/19 5:03 PM) 98.3 DegF (11/05/19 3:28 PM) 98.3 DegF (11/05/19 3:20 PM) Mode of Delivery (Oxygen) Room air (11/05/19 5:03 PM) Room air (11/05/19 1:17 PM) Room air (11/05/19 8:00 AM) Blood pressure sites Arm, right (11/05/19 5:03 PM) Arm, left (11/05/19 3:28 PM) Arm, left (11/05/19 1:17 PM) Temperature Route Oral (11/05/19 5:03 PM) Oral (11/05/19 3:28 PM) Oral (11/05/19 3:20 PM) Dry Weight 61.5 kg (11/05/19 5:03 PM) 61.5 kg (11/05/19 3:28 PM) 61.5 kg (11/05/19 1:17 PM) Social History Social History Type Response Smoking Status Never smoker entered on: 04/23/16 Sex
--- OUTSIDE RECORDS SUMMARY | 2023-01-26 17:29 | XMS_ITS | Continuity of Care Document ---
Author Name Unknown Organization [facility] Address Unknown Care Team Providers Care Red Cap Name Role Phone Kalyn Garcia MD Primary Care Physician Encounter [facility] Date(s): 10/12/21 - 11/11/21 [facility] Attending Physician: Elva Carter Admitting Physician: Elva Carter Referring Physician: Elva Carter Allergies, Adverse Reactions, Alerts Substance Reaction Severity Status Bactrim Angioedema Persistent Severe Active Immunizations Not Given Vaccine Date Status Refusal Reason pneumococcal 23-valent vaccine 1 06/16/19 Not Give n Patient Refuses pneumococcal 23-valent vaccine 04/19/19 Not Given Patient Refuses 1Result Note: does not want a shot Medications KlonoPIN 0.5 mg oral tablet 1 tablet = 0.5 mg, By Mouth, 3 times a day, 0 Refills, Maintenance, 08/28/21 17:23:00 EST, Partial fill upon patient request if the prescription is for a schedule II opioid drug. Start Date: 08/28/21 Status: Ordered multivitamin Multiple Vitamins oral tablet 1 tablet, By Mouth, Daily, # 30 tablet, 0 Refills, Maintenance, 10/17/20 15:02:00 EST, Tablet, [facility], 1 tablet By Mouth Daily,x30 days, 161, cm, 11/28/19 8:27:00 EST, Height, 63.5,kg, 10/13/20 16:02:00 EST, Dry Weight Start Date: 10/17/20 Stop Date: 11/16/20 Status: Ordered ondansetron 4 mg oral tablet, disintegrating 1 tablet = 4 mg, By Mouth, Every 6 hours, PRN as needed for nausea/vomiting, # 12 tablet, 0 Refills, Maintenance, 08/28/21 23:22:00 EST, DIS Tablet, [id number], Partial fill upon patient request if the prescription is for a schedule I... Start Date: 08/28/21 Stop Date: 08/31/21 Status: Ordered topiramate 100 mg oral tablet 0 Refills, Maintenance, 10/13/20 17:24:00 EST, Partial fill upon patient request if the prescription is for a schedule II opioid drug. Start Date: 10/13/20 Status: Ordered traZODone 100 mg oral tablet 100 mg, 1, tablet, By Mouth, Daily at bedtime, Refills 0, Maintenance, 10/13/20 17:25:00 EST, Partial fill upon patient request if the prescription is for a schedule II opioid drug. Start Date: 10/13/20 Status: Ordered Vyvanse 20 mg oral capsule 2 capsule = 40 mg, By Mouth, Daily in AM, 0 Refills, Maintenance, 08/19/21 15:47:00 EDT, Capsule, Partial fill upon patient request if the prescription is for a schedule II opioid drug. Start Date: 08/19/21 Status: Ordered Problem List Condition Effective Dates Status Health Status Inform ant Interstitial cystitis(Confirmed) Active Eating disorder NOS(Confirmed) Active Social History Social History Type Response Smoking Status 10 or more cigarette s (1/2 pack or more)/day in last 30 days entered on: 01/07/20 Sex
--- OUTSIDE RECORDS SUMMARY | 2023-01-26 17:29 | XMS_ITS | Continuity of Care Document ---
Author Name Unknown Organization [facility] ion Address [address] [place] [address]- Care Team Providers Care Dry Pan Operator Name Role Phone Kalyn Garcia MD Primary [id number] Date[facility] - 04/26/[address] [address] Discharge Disposition: A-D/C Home Attending Physician: Not on Staff, Attending MD Admitting Physician: Not on Staff, Admitting MD Referring Physician: Kalyn Garcia MD Allergies, Adverse Reactions, Alerts Substance Reaction [...] 0 Refills, Maintenance, 10/17/20 15:02:00 EST, Tablet, [facility], 1 tablet By Mouth Daily,x30 days, 161, cm, 11/28/19 8:27:00 EST, Height, 63.5,kg, 10/13/20 16:02:00 EST, Dry Weight Start Date: 10/17/20 Stop Date: 11/16/20 Status: Ordered ondansetron 4 mg oral tablet, disintegrating 1 tablet = 4 mg, By Mouth, Every 6 hours, PRN as needed for nausea/vomiting, # 12 tablet, 0 Refills, Maintenance, 08/28/21 23:22:00 EST, DIS Tablet, [id number], Partial fill upon patient request if the [...]
--- OUTSIDE RECORDS SUMMARY | 2023-01-26 17:29 | XMS_ITS | Continuity of Care Document ---
Author Name Unknown Organization [facility] ion Address [address] [place] [address]- Care Team Providers Care Event Technician Name Role Phone Jose SIU, Kalyn Primary Care Physician Encounter [facility] [place] ACCT R [id number] Date(s): 03/15/22 - 04/20/[address] [address] Attending Physician: Kalyn Garcia MD Admitting Physician: Kalyn Garcia MD Referring Physician: Michelle HARO, Geraldine Mclaughlin Allergies, Adverse Reactions, Alerts Substance Reaction Severity [...] 0 Refills, Maintenance, 10/17/20 15:02:00 EST, Tablet, [facility], 1 tablet By Mouth Daily,x30 days, 161, cm, 11/28/19 8:27:00 EST, Height, 63.5,kg, 10/13/20 16:02:00 EST, Dry Weight Start Date: 10/17/20 Stop Date: 11/16/20 Status: Ordered ondansetron 4 mg oral tablet, disintegrating 1 tablet = 4 mg, By Mouth, Every 6 hours, PRN as needed for nausea/vomiting, # 12 tablet, 0 Refills, Maintenance, 08/28/21 23:22:00 EST, DIS Tablet, [facility] #[id number], Partial fill upon patient request if the [...]
--- OUTSIDE RECORDS SUMMARY | 2023-01-26 17:29 | XMS_ITS | Continuity of Care Document ---
Author Name Unknown Organization [facility] Address [address] [address]- Care Team Providers Care Facilities Administrator Name Role Phone Kalyn Garcia MD Primary Care Physician Encounter [facility] Date(s): 01/07/20 - 01/14/20 [facility] [address] [place] [address] [facility] Attending Physician: Not on Staff, Attending MD Referring Physician: Kalyn Garcia MD Allergies, [...] 06/19/19 9:32:08 EDT, Route to Pharmacy Electronically, [id number], [facility] Start Date: 06/19/19 Status: [...] 06/19/19 9:32:32 EDT, Route to Pharmacy Electronically, [id number], [facility] Start Date: 06/19/19 Stop Date: 07/19/19 Status: Ordered ibuprofen 600 mg oral tablet 600 mg, By Mouth, 3 times a day, PRN, # 30 tablet, Refills 0, Tot. Refills 0, Maintenance, Pain , Mild, 06/19/19 9:40:58 EDT, Route to Pharmacy Electronically, [id number], [facility] 3 Start Date: 06/19/19 Status: Ordered multivitamin [...] 06/19/19 9:33:16 EDT, Route to Pharmacy Electronically, [id number], [facility] 3 Start Date: 06/19/19 Status: Ordered Sprintec 0.25 mg-35 mcg oral tablet 1 tablet, By Mouth, Daily, Please deliver to Pt at [address] Thank you. startfirst tablet today, # 28 tablet, 11 Refills, Maintenance, 01/07/20 12:15:00 EDT, Tablet, [facility], 1 tablet By Mouth Daily,... Start Date: 01/07/20 Status: Ordered thiamine 100 mg oral tablet 100 mg, 1, tablet, By Mouth, Daily, # 30 tablet, Refills 0, Tot. Refills 0, Maintenance, 06/19/19 9:32:34 EDT, Route to Pharmacy Electronically, [id number], [facility] 3 Start Date: 06/19/19 Stop Date: 07/19/19 [...]
--- OUTSIDE RECORDS SUMMARY | 2023-01-26 17:29 | XMS_ITS | Continuity of Care Document ---
Author Name Unknown Organization [facility] Address [address] [address]- Care Team Providers Care Title Vehicle Service Attendant Name Role Phone Kalyn Garcia MD Primary Care Physician Encounter [facility] ACCT R [id number] Date(s): 03/13/21 - 03/20/21 [facility] [address] [address] Attending Physician: Not on Staff, Attending MD Referring Physician: Kalyn Garcia MD Allergies, Adverse Reactions, Alerts Substance Reaction Severity Status Bactrim Angioedema Persistent Severe Active Immunizations Not Given Vaccine Date Status Refusal Reason pneumococcal 23-valent vaccine 1 06/16/19 Not Give n Patient Refuses pneumococcal 23-valent vaccine 04/19/19 Not Given Patient Refuses 1Result Note: does not want a shot Medications folic acid 1 mg oral tablet 1 mg, 1, tablet, By Mouth, Daily, # 30 tablet, Refills 0, Tot. Refills 0, Maintenance, 10/17/20 10:26:00 EST, Route to Pharmacy Electronically, [id number], 161, cm, 11/28/19 8:27:00 EST, Height, 63.5, kg, 10/13/20 16:02:00 EST,... Start Date: 10/17/20 Stop Date: 11/16/20 Status: Ordered folic acid 1 mg oral tablet 1 mg, 1, tablet, By Mouth, Daily, # 30 tablet, Refills 0, Tot. Refills 0, Maintenance, 10/17/20 15:01:00 EST, Route to Pharmacy Electronically, [facility], 161, cm, 11/28/19 8:27:00 EST, Height, 63.5, kg, 10/13/20 16:02:00 EST, Dry Weight Start Date: 10/17/20 Stop Date: 11/16/20 Status: Ordered Liletta 52 mg intrauterine device See Instructions, 1 each Once, # 1 each, 0 Refills, Soft Stop, 03/13/21 9:32:00 EDT Start Date: 03/13/21 Status: Ordered multivitamin Multiple Vitamins oral tablet 1 tablet, By Mouth, Daily, # 30 tablet, 0 Refills, Maintenance, 10/17/20 15:02:00 EST, Tablet, [facility], 1 tablet By Mouth Daily,x30 days, 161, cm, 11/28/19 8:27:00 EST, Height, 63.5,kg, 10/13/20 16:02:00 EST, Dry Weight Start Date: 10/17/20 Stop Date: 11/16/20 Status: Ordered thiamine 100 mg oral tablet 100 mg, 1, tablet, By Mouth, Daily, # 30 tablet, Refills 0, Tot. Refills 0, Maintenance, 10/17/20 15:04:00 EST, Route to Pharmacy Electronically, [facility], 161, cm, 11/28/19 8:27:00 EST, Height, 63.5, kg, 10/13/20 16:02:00 EST, Dry Weight Start Date: 10/17/20 Stop Date: 11/16/20 Status: Ordered topiramate 100 mg oral tablet [...] opioid drug. Start Date: 10/13/20 Status: Ordered venlafaxine 37.5 mg oral capsule, extended release 37.5 mg, 1, capsule, By Mouth, Daily, # 30 capsule, Refills 0, Tot. Refills 0, Maintenance, 10/17/20 15:02:00 EST, Route to Pharmacy Electronically, [facility], Partial fill upon patient request if the prescription is for a schedule II o... Start Date: 10/17/20 Status: Ordered Problem List Condition Effective Dates Status Health Status Inform ant Interstitial cystitis(Confirmed) Active Eating disorder NOS(Confirmed) Active Procedures Procedure Date Related Diagnosis Body Site Status Insertion of Liletta IUD 1 03/13/21 Completed [id number]/[id number] Vital Signs Most recent to oldest [Reference Range]: 1 Height 161 cm (03/13/21 9:08 AM) Weight 59.9 kg (03/13/21 9:08 AM) Body Mass Index [18.5-24.99] 23.11 (03/13/21 9:08 AM) Blood Pressure [90-138/55-84 mm Hg] 105/ 73mm Hg (03/13/21 9:08 AM) Social History Social History Type Response Smoking Status 10 or more cigarette s (1/2 pack or more)/day in last 30 days entered on: 01/07/20 Sex
--- OUTSIDE RECORDS SUMMARY | 2023-01-26 17:29 | XMS_ITS | Continuity of Care Document ---
Author Name Unknown Organization [facility] Address [address] [place] [address]- Care Team Providers Care Experimental Worker Name Role Phone Valdo John MD Primary Care Physician Encounter [facility] Date(s): 01/12/23 - 01/12/[address] [address]- Encounter Diagnosis Pelvic inflammatory disease(Final) - 01/12/23 Bacterial vaginosis(Final) - 01/12/23 Discharge Disposition: A-D/C Home Attending Physician: Sylvain Ortiz MD Admitting Physician: Sylvain Ortiz MD Referring Physician: Not on Staff, Referring MD Allergies, Adverse Reactions, Alerts Substance Reaction Severity Status Bactrim Angioedema Persistent Severe Active Immunizations Given and Recorded Vaccine Date Status Refusal Reason pneumococcal 23-valent vaccine 09/19/22 Given influenza virus vaccine, inactivated 09/15/22 Give n SARS-CoV-2 (COVID-19) mRNA-1273 vaccine 03/15/21 R ecorded SARS-CoV-2 (COVID-19) mRNA-1273 vaccine 02/14/21 R ecorded SARS-CoV-2 (COVID-19) mRNA-1273 vaccine 12/10/20 R ecorded Not Given Vaccine Date Status Refusal Reason pneumococcal 23-valent vaccine 1 06/16/19 Not Give n Patient Refuses pneumococcal 23-valent vaccine 04/19/19 Not Given Patient Refuses 1Result Note: does not want a shot Medications cloNIDine 0.1 mg oral tablet 0.2 mg, 2, tablet, By Mouth, Daily at bedtime, # 30 tablet, Refills 0, Maintenance, 09/13/22 4:32:00 EST, Partial fill upon patient request if the prescription is for a schedule II opioid drug. Start Date: 09/13/22 Status: Ordered Depakote 500 mg oral enteric coated tablet 1 tablet = 500 mg, By Mouth, Daily at bedtime, 0 Refills, Maintenance, 12/03/22 11:10:00 EST, Partial fill upon patient request if the prescription is for a schedule II opioid drug. Start Date: 12/03/22 Status: Ordered Diflucan 150 mg oral tablet 1 tablet = 150 mg, By Mouth, Once, # 1 tablet, 0 Refills, Soft Stop, 01/12/23 18:54:00 EDT, Tablet,[facility]/pharmacy #[id number], Partial fill upon patient request if the prescription is for a schedule II opioid drug., 165, cm, 01/12/23 18:38:00 EDT, Height, 80... Start Date: 01/12/23 Status: Ordered doxycycline hyclate 100 mg oral capsule 1 capsule = 100 mg, By Mouth, 2 times a day, for 14 days, # 28 capsule, 0 Refills, Acute 01/26/23 18:54:00 EDT, 01/12/23 18:54:00 EDT, Capsule, [facility]/pharmacy #[id number], Partial fill upon patient request if the prescription is for a schedule II opioid drug.... Start Date: 01/12/23 Stop Date: 01/26/23 Status: Ordered folic acid 1 mg oral tablet 1 mg, 1, tablet, By Mouth, Daily, # 30 tablet, Refills 0, Tot. Refills 0, Maintenance, 09/15/22 14:55:00 EST, Route to Pharmacy Electronically, [facility], Partial fill upon patient request if the prescription is for a schedule II opioid... Start Date: 09/15/22 Stop Date: 10/15/22 Status: Ordered metroNIDAZOLE 500 mg oral tablet 1 tablet = 500 mg, By Mouth, Every 8 hours, for 14 days, # 42 tablet, 0 Refills, Acute 01/26/23 18:54:00 EDT, 01/12/23 18:54:00 EDT, Tablet, [facility]acy [facility][id number], Partial fill upon patient request if the prescription is for a schedule II opioid drug., 1... Start Date: 01/12/23 Stop Date: 01/26/23 Status: Ordered multivitamin Multiple Vitamins oral tablet 1 tablet, By Mouth, Daily, # 30 tablet, 0 Refills, Maintenance, 09/15/22 14:54:00 EST, Tablet, [facility], Partial fill upon patient request if the prescription is for a schedule II opioid drug., 1 tablet By Mouth Daily,x30 days, 160, cm... Start Date: 09/15/22 Stop Date: 10/15/22 Status: Ordered topiramate 100 mg oral tablet 1 tablet = 100 mg, By Mouth, Daily at bedtime, 0 Refills, Maintenance, 09/13/22 4:32:00 EST, Partial fill upon patient request if the prescription is for a schedule II opioid drug. Start Date: 09/13/22 Status: Ordered Vyvanse 30 mg oral capsule 60 each, TAKE 1 CAPSULE BY MOUTH TWICE A DAY, 0 Refills, 09/19/22 10:36:00 EST, Partial fill upon patient request if the prescription is for a schedule II opioid drug. Start Date: 09/19/22 Status: Ordered Problem List Condition Confirmation Course Effective Dates Status H ealth Status Informant Benzodiazepine misuse Confirmed Active Bipolar disorder Confirmed Active Interstitial cystitis Confirmed Active Alcohol use Confirmed Active Eating disorder NOS Confirmed Active Migraines Confirmed Active Sciatica of left side Confirmed Active Results Orders for Microbiology Reports Name Date Wet Prep 01/12/23 Microbiology Reports TEST:Wet Prep STATUS:Auth (Verified) BODY SITE: SOURCE:VAGINA COLLECTED DATE/TIME:01/12/23 4:02 PM Wet Prep SPECIMEN DESCRIPTION : VAGINAL SPECIMEN SPECIAL REQUESTS : NONE DIRECT EXAM : 1+ CLUE CELLS NO TRICHOMONAS OBSERVED NO YEAST OBSERVED NO WBC'S SEEN REPORT STATUS : FINAL 01/12/2023 Vital Signs Most recent to oldest [Reference Range]: 1 2 Height 165 cm (01/12/23 6:38 PM) 165 cm (01/12/23 2:42 PM) Weight 80 kg (01/12/23 6:38 PM) 80 kg (01/12/23 2:42 PM) Oxygen Saturation [94-100 %] 99 % (01/12/23 6:38 PM) 100 % (01/12/23 2:49 PM) Pulse Rate [55-90 bpm] 83 bpm (01/12/23 6:38 PM) 79 bpm (01/12/23 2:49 PM) Body Mass Index [18.5-24.99 kg/m2] 29.38 kg/m2 *H* (01/12/23 6:38 PM) Blood Pressure [90-138/55-84 mm Hg] 136/ 105mm Hg (01/12/23 6:38 PM) 92/62mm Hg (01/12/23 2:49 PM) Respiratory Rate [16-30 br/min] 17 br/mi n (01/12/23 2:49 PM) Temperature [96.8-100.4 DegF] 97.6 DegF (01/12/23 2:49 PM) Mode of Delivery (Oxygen) Room air (01/12/23 6:38 PM) Room air (01/12/23 2:49 PM) Blood pressure sites Arm, right (01/12/23 6:38 PM) Temperature Route Oral (01/12/23 2:49 PM) Dry Weight 80 kg (01/12/23 6:38 PM) 80 kg (01/12/23 2:42 PM) Weight Obtained Via Patient/family state d (01/12/23 2:42 PM) Dry Weight Obtained Via Patient/family s tated (01/12/23 2:42 PM) Social History Social History Type Response Smoking Status 10 or more cigarette s (1/2 pack or more)/day in last 30 days entered on: 01/07/20 Sex Note * Sylvain Ortiz MD: PERFORM Event Display: Patient Education Leaflets Authored Date: [id number] Multiple Documents ?? [id number] Pelvic Inflammatory Disease (PID) Pelvic inflammatory disease (PID) is an infection of the female reproductive organs. These include the vagina, cervix, uterus, fallopian tubes, and ovaries. PID is a common problem. It's most often caused by gonorrhea or chlamydia. These are bacterial infections that are spread through sex. For this reason, they are known as sexually transmitted infections (STIs). PID can also be caused by other infections, though this is much less common. When PID is found and treated early, it can often be cured. If not treated promptly, PID can lead to serious health problems. These include chronic pelvic pain and damage to the reproductive organs. PID can also lead to infertility. And it can increase the risk of tubal . Mild cases of PIDcan often be treated at home. Severe cases of PID may need to be treated in the hospital. Home care ??? You will likely be prescribed a combination of antibiotics. Be sure to take the medicines exactly as directed. ??? To help relieve pain, you may take??[id number] pain medicine. Pain medicine may also be prescribed, if needed. ??? Tell any partners you???ve had sex with about your condition. They will need to be tested for infection and treated as well. ??? Don't have sex until you and any partners have finished treatment and tests show that you are no longer infected. Prevention ??? If you choose to have sex, make sure to practice safer sex. For instance, have sex with only one partner who only has sex with you. Ask your partner to be tested for STIs. Each time you have sex, use latex condoms. These help reduce the risk for STIs. ??? Don't douche unless advised to by your healthcare provider. Douching may increase the risk for PID. ?? Follow-up care Follow up with your healthcare provider, or as advised. ?? When to get medical advice Call your healthcare provider right away if any of the following occur: ??? Fever??of 100.4??F (38??C) or higher, or as directed by your healthcare provider ??? Symptoms don't improve after 2 days oftreatment ??? New or increasing pain in your lower belly or back ??? Abnormal vaginal bleeding ??? Abnormal vaginal discharge ??? Weakness, dizziness or fainting ??? Nausea or vomiting ??? Trouble with urination or pain and burning during urination ??? Rash or joint pain ??? Painful open sores around the vagina ??? Swollen or painful lymph nodes in the groin (these may be felt as lumps in the groin) ?? To learn more To learn more about PID and STIs, contact: ??? CDC National STI Hotline at www.cdc.gov/std/ or 405-416-0777 ?? Last Reviewed Date: 2022 ?? [employer]. All rights reserved. This information is not intended as a substitute for professional medical care. Always follow your healthcare professional's instructions. ?? * Sylvain Ortiz MD: PERFORM Event Display: Patient Education Leaflets Authored Date: [id number] Multiple Documents ?? [id number] Bacterial Vaginosis You have a vaginal infection called bacterial vaginosis (BV). Both good and bad bacteria are present in a healthy vagina. BV occurs when these bacteria get out of balance. The number of bad bacteria increase. And the number of good bacteria decrease. BV is linked with sexual activity, but it's not a sexually transmitted infection (STI). BV may or may not cause symptoms. If symptoms do occur, they can include: ??? Thin, giraldo, milky-white, or sometimes green discharge ??? Unpleasant odor or ???fishy?? smell ??? Itching, burning, or pain in or around the vagina It's not known what causes BV, but certain factors can make the problem more likely. These can include: ??? Douching ??? Spermicides ??? Use of antibiotics ??? Change in hormone levels with , , or menopause ??? Having sex with a new partner ??? Having sex with more than one partner BV will sometimes go away on its own. But treatment is often advised. This is because untreated BV can raise the risk of more serious health problems, such as: ??? Pelvic inflammatory disease (PID) ??? delivery (giving to a baby early if you???re ) ??? HIV and some other sexually transmitted infections (STIs) ??? Infection after surgery on the reproductive organs Home care General care ??? BV is most often treated with medicines called antibiotics. These may be given as pills or as avaginal cream.??If antibiotics are prescribed, be sure to use them exactly as directed. And complete all of the medicine, even if your symptoms go away. ??? Don't douche or have sex during treatment.??? If you have sex with a female partner, ask your healthcare provider if she should also be treated. Prevention ??? Don't douche. ??? Don't have sex. If you do have sex, take steps to lower your risk:o Use condoms when having sex. o Limit the number of sex partners you have. ?? Follow-up care Follow up with your healthcare provider, or as advised. ?? When to get medical advice Call your healthcare provider right away if any of the following occur: ??? You have a fever of??100.4??F (38??C)??or higher, or as directed by your healthcare provider. ??? Your symptoms get worse, or they don???t go away within a few days of starting treatment. ??? You have new pain in the lower belly??or pelvic region. ??? You have side effects that bother you or a reaction to the pills or cream you???re prescribed. ??? You or any of your sex partners have new symptoms, such as a rash, jointpain, or sores. ?? Last Reviewed Date: 2022 ?? [id number] [employer]. All rights reserved. This information is not intended as a substitute for professional medical care. Always follow your healthcare professional's instructions. ?? Patient Care team information Care Team Personnel Name: Kaylan Hall Position: [facility] Outreach Member Role: Lifetime Consulting Physician Name: Kari Penaloza Position: [facility] Outreach Member Role: Lifetime Consulting Physician Name: Lucia Elam RN Position: [facility] RN Member Role: Primary Care Nurse Name: Jovany Watson RN Position: [facility] RN Member Role: Primary Care Nurse Name: Bhavya Hunter Position: [facility] Outreach Member Role: Lifetime Consulting Physician Name: Jose D Madrid III, RN Position: [facility] RN Member Role: Primary Care Nurse Name: Jarad Calvillo RN Position: [facility] RN Member Role: Primary Care Nurse Name: Caitlyn Vance RN Position: [facility] RN Member Role: Primary Care Nurse Name: Ina Pham RN Position: [facility] RN Member Role: Primary Care Nurse Name: Valdo John MD Position: [facility] Primary Care Physician Member Role: PCP Address: Address: [address] [place] [address] [place] [address]- Name: Nahed Hamilton RN Position: [facility] SN RN Member Role: Primary Care Nurse Name: Sylvain Ortiz MD Position: [facility] ED Medicine MD Member Role: Admitting Physician Address: Address: [address] [place] [address] Department of [place] [address]- Name: Barbara Abby Position: [facility] ED TA MARTI Member Role: Supervisor Beater Room Name: Terry Fry RN Position: [facility] ED RN W/OE and Tasks Member Role: Patient Care Provider Care Team Related Persons Name: RAGSDALE TANESHA Address: [address] [address] Name: STERLING RAGSDALE Address: [place] [id number]
--- OUTSIDE RECORDS SUMMARY | 2023-01-26 17:29 | XMS_ITS | Continuity of Care Document ---
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 DISCARDED AFTER 24 HOURS. ()?? 09/13/2022 00:55 ?? MISC. CHEMISTRY Hold Green Top SPECIMEN DISCARDED AFTER 1 WEEK ()?? 09/13/2022 00:55 Hold Gel Top SPECIMEN DISCARDED AFTER 1 WEEK ()?? 09/13/2022 00:55 ?? VIROLOGY COVID-19 by RT-PCR NEGATIVE ()?? 09/13/2022 04:46 ? Assessment/Plan Diagnoses ?? Patient is a 27-year-old female with history of major depression/anxiety, alcohol abuse, alcohol withdrawal with DTs and seizures in the past, presenting to the emergency department with concerns foralcohol withdrawal. ?? Alcohol abuse Alcohol withdrawal History of withdrawal seizures/DTs in the past Patient scoring very high on CIWA with initial score being 40. ??Received phenobarbital and lorazepam now scoring 13 on CIWA.on 8 continue PRN meds needs SW consult , wants to go to rehab ?? Anxiety/depression: Given her recent alcoholic binge, she has not been taking her medications for anxiety/depression. ?? We will resume amitriptyline, clonidine, topiramate, paroxetine, bupropion, hydroxyzine. ??Vyvanse nonformulary. ?? Abdominal pain: resolved? Hypokalemia:?? replaced ?? DVT prophylaxis: Pneumatic compression boots ?? CODE STATUS: Full code. ? Note * Sissy Sin RN: PERFORM Event Display: Discharge/Transfer Note Hospital Authored Date: [id number] Nursing Discharge Note Entered On: 09/15/2022 16:56 EST Performed On: 09/15/2022 16:55 EST by Sissy Sin RN Nursing Discharge Note 2 Discharge Time : 09/15/2022 16:55 EST Discharge Level of Care at Discharge : Home/Custodial/Foster Care Patient Left Unit Via : Ambulatory Patient Accompanied Off Unit with : Other: independent DC Instructions Provided & Signed by Pt : Yes Patient Understands D/C Instructions : Yes Patient Instructions Discharge Signed : Yes Did Pt have Specialty Bed or Wound Vac : No Sissy Sin RN - 09/15/2022 16:55 EST * [facility], Bandar: PERFORM Event Display: Discharge/Transfer Note Hospital Authored Date: [id number] Patient: ??KAVITHA RAGSDALE ? Age:??27 Years?Sex:??Female?:??1995?? Patient Information Discharge Location: W3 Primary Care Physician: Kalyn Garcia MD Admit Date/Time: 09/13/22 03:59 Discharge Disposition Discharge Disposition: Home: No Services Discharge Diagnosis ??Alcohol abuse Alcohol withdrawal History of withdrawal seizures/DTs in the past Anxiety/depression: Abdominal pain Hypokalemia:?? _ Discharge Medications Acamprosate (acamprosate 333 mg oral delayed release tablet)?1?tab(s)?333?Milligram?By Mouth?3 times a day?for 30?Days?start ??with 1 tab three times a day ??and then increase to 2 tabs three times a day amiTRIPTYLINE (amitriptyline 25 mg oral tablet)?25?Milligram?1?tablet?By Mouth?Daily at bedtime BuPROpion (buPROPion 300 mg/24 hours (XL) oral tablet, extended release)?1?tab(s)?300?Milligram?By Mouth?Daily Clonidine (cloNIDine 0.1 mg oral tablet)?0.2?Milligram?2?tablet?By Mouth?Daily atbedtime Folic Acid (folic acid 1 mg oral tablet)?1?Milligram?1?tablet?By Mouth?Daily?for 30?Days HydrOXYzine (hydrOXYzine hydrochloride 25 mg oral tablet)?1?tab(s)?25?Milligram?By Mouth?2 times a day?as needed?as needed for anxiety Multivitamin (multivitamin Multiple Vitamins oral tablet)?1?tab(s)?By Mouth?Daily?for 30?Days Paroxetine (PARoxetine 20 mg oral tablet)?20?Milligram?1?tablet?By Mouth?Daily Thiamine (thiamine 100 mg oral tablet)?100?Milligram?1?tablet?By Mouth?2 times a day?for 60?Days Topiramate (topiramate 100 mg oral tablet)?2?tab(s)?200?Milligram?By Mouth?Daily at bedtime ? Medications Started Acamprosate (acamprosate 333 mg oral delayed release tablet Medications Discontinued none Doses Changed none PCP Follow-Up/Heads-Up please follow with pcp?? and information provided by social?? worker for alcohol rehab Future Appointments Saturday 12:20 PM EST ?? With: [facility], Valdo Bailey Where: [place] [address]- Hospital Course Patient is a 27-year-old female with history of major depression/anxiety, alcohol abuse, alcohol withdrawal with DTs and seizures in the past, presenting to the emergency department with concerns foralcohol withdrawal. ?? Alcohol abuse Alcohol withdrawal History of withdrawal seizures/DTs in the past s/p?? phenobarbital?? and ciwa monitoring plan to?? dc appreciate social?? work for [employer] ?? Anxiety/depression: Given her recent alcoholic binge, she has not been taking her medications for anxiety/depression. ?? We will resume amitriptyline, clonidine, topiramate, paroxetine, bupropion, hydroxyzine. ??Vyvanse nonformulary. ? patient stable for discharge Objective Vital Signs?? Temperature: 97.4 DegF (09/15/22 10:59:00) Temperature Route: Oral (09/15/22 10:59:00) Pulse Rate:??91 bpm??High (09/15/22 10:59:00) Respiratory Rate: 24 br/min (09/15/22 10:59:00) Systolic Blood Pressure: 91 mm Hg (09/15/22 10:59:00) Diastolic Blood Pressure: 74 mm Hg (09/15/22 10:59:00) Blood pressure sites: Arm, left (09/15/22 10:59:00) Mean Arterial Pressure: 80 mm Hg (09/15/22 10:59:00) Pulse Pressure: 17 mm Hg (09/15/22 10:59:00) Oxygen Saturation: 100 % (09/15/22 10:59:00) Mode of Delivery (Oxygen): Room air (09/15/22 10:59:00) Early Warning Score: 5 (09/15/22 10:59:28) ? . Physical Exam General: Lying comfortably in bed, no evident distress Cardiac: S1 + S2 +, no murmurs heard Respiratory: CTA, No wheezes, Rales or crackles heard Abdomen: soft, nondistended, nontender Extremities: No edema or cyanosis present Neurological: AO X 3 , cranial nerves grossly normal?? Patient Education Titles Alcohol Intoxication?? Alcohol Withdrawal Seizure?? Life After Combat: Coping with Alcohol Abuse?? Alcohol Abuse?? Patient Instructions please follow with information provided by social?? worker Post Discharge Care please follow with information provided by social?? worker Home Health Face to Face ^HomeHealthFTF Results Discharge Labs BLOOD COUNT & DIFF WBC 9.7 k/mm3 ()?? 09/15/2022 00:50 RBC 3.66 m/mm3 (Low)?? 09/15/2022 00:50 Hgb 10.8 Gm/dL (Low)?? 09/15/2022 00:50 Hct 33.6 % (Low)?? 09/15/2022 00:50 MCV 91.8 femtoliters ()?? 09/15/2022 00:50 MCH 29.5 pg ()?? 09/15/2022 00:50 MCHC 32.1 g/dL (Low)?? 09/15/2022 00:50 Platelet Count 311 k/mm3 ()?? 09/15/2022 00:50 RDW-SD 43.6 femtoliters ()?? 09/15/2022 00:50 MPV 10.8 femtoliters ()?? 09/15/2022 00:50 Nucleated RBC (Automated) 0.0 #/100 WBC'S ()?? 09/15/2022 00:50 Abs. NRBC 0.0 k/mm3 ()?? 09/15/2022 00:50 Abs. Neut 7.6 k/mm3 (High)?? 09/13/2022 08:44 Abs. Lymph 2.9 k/mm3 ()?? 09/13/2022 08:44 Abs. [place] 1.1 k/mm3 (High)?? 09/13/2022 08:44 Abs. Eo 0.8 k/mm3 (High)?? 09/13/2022 08:44 Abs. Baso 0.1 k/mm3 ()?? 09/13/2022 08:44 Neut % 60.7 % ()?? 09/13/2022 08:44 Lymph % 23.1 % ()?? 09/13/2022 08:44 [place] % 8.9 % ()?? 09/13/2022 08:44 Eos % 6.2 % (High)?? 09/13/2022 08:44 Baso % 0.8 % ()?? 09/13/2022 08:44 Imm Gran 0.3 % ()?? 09/13/2022 08:44 Abs. Imm Gran 0.0 k/mm3 ()?? 09/13/2022 08:44 ?? CHEM GENERAL Sodium 138 mmol/L ()?? 09/15/2022 00:50 Potassium 4.4 mmol/L ()?? 09/15/2022 00:50 Chloride 108 mmol/L (High)?? 09/15/2022 00:50 Bicarbonate Level 20 mmol/L (Low)?? 09/15/2022 00:50 Anion Gap 10 ()?? 09/15/2022 00:50 Glucose Level 112 mg/dL (High)?? 09/15/2022 00:50 BUN 8 mg/dL ()?? 09/15/2022 00:50 Creatinine-Blood 0.8 mg/dL ()?? 09/15/2022 00:50 Estimated GFR Creatinine 102 ML/MIN/1.73 M2 ()?? 09/15/2022 00:50 Calcium 8.4 mg/dL (Low)?? 09/15/2022 00:50 Calcium, Ionized pH Corrected 1.19 mmol/L ()?? 09/12/2022 23:34 Magnesium 1.7 mg/dL ()?? 09/12/2022 23:34 Protein, Total 7.6 Gm/dL ()?? 09/13/2022 00:55 Albumin 5.0 Gm/dL (High)?? 09/13/2022 00:55 Alkaline Phosphatase 83 units/L ()?? 09/13/2022 00:55 Lipase 43 units/L ()?? 09/12/2022 23:34 AST (SGOT) 25 units/L ()?? 09/13/2022 00:55 ALT (SGPT) 17 units/L ()?? 09/13/2022 00:55 Bilirubin, Total 0.6 mg/dL ()?? 09/13/2022 00:55 Bilirubin, Direct 0.2 mg/dL ()?? 09/13/2022 00:55 Bilirubin, Indirect 0.4 mg/dL ()?? 09/13/2022 00:55 ? ENDOCRINE/TUMOR MARKER Serum Qual NEGATIVE mIU/mL ()?? 09/12/2022 23:34 ? HEME OTHER Hold Lavender Top SPECIMEN DISCARDED AFTER 24 HOURS. ()?? 09/13/2022 00:55 ? MISC. CHEMISTRY Hold Green Top SPECIMEN DISCARDED AFTER 1 WEEK ()?? 09/13/2022 00:55 Hold Gel Top SPECIMEN DISCARDED AFTER 1 WEEK ()?? 09/13/2022 00:55 ?? VIROLOGY Influenza A PCR NEGATIVE ()?? 09/15/2022 10:50 Influenza B PCR NEGATIVE ()?? 09/15/2022 10:50 RSV PCR NEGATIVE ()?? 09/15/2022 10:50 COVID-19 by RT-PCR NEGATIVE ()?? 09/13/2022 04:46 COVID-19 PCR Specimen Source NASAL ()?? 09/15/2022 10:50 COVID-19 PCR Result NEGATIVE ()?? 09/15/2022 10:50 ? Microbiology ?? COVID-19 (Novel Coronavirus), Rapid PCR?? Completed?? Source: Nasal Body Site: Nose Collected Dt/Tm: 09/13/2022 03:58 Last Updated Dt/Tm: 09/13/2022 07:25 ? 35_ minutes spent on discharge * Merrick BOOTHE, Sissy: PERFORM Event Display: Patient Education/Instruction Authored Date: [id number] Inpatient Adult Discharge Instructions [address] [address] Name: KAVITHA RAGSDALE : 1995 Visit: 09/13/2022 03:59:00 Current Date: 09/15/2022 15:20 Account: [id number] Inpatient Adult Discharge Instructions We would like to thank you for allowing us to assist you with your healthcare needs. The following includes patient education materials and information regarding your injury/illness. Our entire staffstrives to provide an excellent experience for our patients and their families. PLEASE ENSURE YOU FOLLOW-UP PER THE INSTRUCTIONS BELOW! ?? YOUR OPINION IS IMPORTANT TO US! Please complete the survey you may receive by mail or email. Your feedback will be used to make improvements to the healthcare experiences of our patients and their families. Surveys are administered by [employer] ?? If further treatment with your primary care physician or another doctor is recommended, it is important for you to keep the appointment. Call your primary care physician or return to the Emergency Department immediately if your condition worsens, fails to improve, or new symptoms develop. If you need to find a doctor, you can call [facility] for a referral at [phone] or toll free at [phone]) or log in to [email or web address].. ?? You can view and manage your care through the patient portal or by using a health care nelson of your choosing. [employer] is a website that allows you to securely view your medical information including your hospital discharge summary, office visit summaries, medications and follow-up visits. You can also request appointments, renew medications, and request access to your medical information using a health care nelson of your choosing, or just ask a question. You can enroll at [email or web address] or register during your next office visit. You have been discharged from [facility], Patient Care Unit: W3. If you have any questions regarding these instructions after you leave, please call us and we will be happy to assist you. [facility] Your Care Team Attending Physician [facility], Bandar Discharging Providers [facility], Bandar Reason for Admission Alcohol withdrawal, General medical Your Diagnosis etoh withdrawal Tests Performed Below is a partial list of the tests performed during your hospitalization. You may have had other tests and procedures not included in this list. Please discuss all test results with your provider. Basic Metabolic Panel BUN Calcium Ionized Calcium Level CBC CBC w/ Differential COVID-19 (Novel Coronavirus), Rapid PCR COVID-19, RSV, FLU A/B PCR Creatinine Electrolytes Glucose Level HEPATIC FUNCTION PANEL HOLD GEL TUBE HOLD GREEN TUBE HOLD LAVENDER TUBE Lipase Magnesium Level Serum Qualitative CXR Portable Primary Care Provider Kalyn Garcia MD Advance Directive Health Care Proxy on File Yes - Health Care Proxy No qualifying data available. Discharge Vitals Temperature: 97.7 DegF Height: 160 cm Pulse Rate:??99 bpm??High Weight: 80.1 kg Respiratory Rate: 22 br/min Body Mass Index:??31.29 kg/m2??Critical Systolic Blood Pressure: 110 mm Hg Body surface area: 1.89 Diastolic Blood Pressure: 76 mm Hg ?? Oxygen Saturation: 99 % ?? Studies Pending All tests and labs ordered during this hospital stay have been completed unless listed below. Please discuss all pending results with your provider listed above in these instructions. ?? Add On Lab Order COVID-19, RSV, and Flu A/B, Rapid PCR What to do next Instructions From Your Doctor Discharge Orders Scheduled Follow-Up Appointments Saturday 12:20 PM EST ?? With: [facility], Valdo Bailey Where: Primary Care [address] [address]- Discharge Medications KAVITHA RAGSDALE :1995 Visit Date:09/13/2022 Medications: Please continue your medications until treatment is completed or stopped by your provider. Medications not listed below should be discontinued. Discuss any questions related to medications with your provider. What How Much When Instructions Next Dose New Acamprosate (acamprosate 333 mg oral delayed release tablet) 1 tab(s) Oral 3 times a day Duration: 30 Days Refills: 1 start ??with 1 tab three times a day ??and then increase to 2 tabs three times a day ?? Pickup at [facility] as prescribed, not given New Thiamine (thiamine 100 mg oral tablet) 1 tab(s) Oral Twice a day Duration: 60 Days Pickup at [place] [address] 9pm tonight Changed BuPROpion (buPROPion 300 mg/ 24 hours (XL) oral tablet, extended release) 1 tab(s) Oral Daily 9am tomorrow Changed Folic Acid (folic acid 1 mg oral tablet) 1 tab(s) Oral Daily Duration: 30 Days Pickup at [place] [address] 9am tomorrow Changed Multivitamin (multivitamin Multiple Vitamins oral tablet) 1 tab(s) Oral Daily Duration: 30 Days Pickup at [place] [address] 9am tomorrow Changed Paroxetine (PARoxetine 20 mg oral tablet) 1 tab(s) Oral Daily 9am tomorrow Changed Topiramate (topiramate 100 mg oral tablet) 2 tab(s) Oral Daily at Bedtime 9pm tonight Unchanged amiTRIPTYLINE (amitriptyline 25 mg oral tablet) 1 tab(s) Oral Daily at Bedtime 9pm tonight Unchanged Clonidine (cloNIDine 0.1 mg oral tablet) 2 tab(s) Oral Daily at Bedtime 9pm tonight Unchanged HydrOXYzine (hydrOXYzine hydrochloride 25 mg oral tablet) 1 tab(s) Oral Twice a day as needed for as needed for anxiety as prescribed, last dose 09/13/22 Pharmacy Information [facility]: [address], [place] [id number] [phone] ?? What How Much When Comments Stop Taking Clonazepam (KlonoPIN 0.5 mg oral tablet) 1 tab(s) Oral 3 times a day Stop Taking lisdexamfetamine (Vyvanse 20 mg oral capsule) 2 capsule Oral Daily in the morning Stop Taking lisdexamfetamine (Vyvanse 30 mg oral capsule) 1 capsule Oral Twice a day Stop Taking Ondansetron (ondansetron 4 mg oral tablet, disintegrating) 1 tab(s) Oral Every 6 hours as needed for as needed for nausea/vomiting Duration: 3 Days Stop Taking Trazodone (traZODone 100 mg oral tablet) 1 tab(s) Oral Daily at Bedtime Test Results Below is a partial list of the most recent Laboratory test results done prior to this discharge. You may have had other tests and procedures not included in this list. Please discuss all test resultswith your provider. Basic Metabolic Panel (09/13/2022) ???Sodium - 141 mmol/L???Potassium - 3.3 mmol/L???Chloride - 106 mmol/L???Bicarbonate Level - 22 mmol/L???Anion Gap - 13???Glucose Level - 77 mg/dL???BUN - 12 mg/dL???Creatinine-Blood - 0.7 mg/dL???Estimated GFR Creatinine - 123 ML/MIN/1.73 M2???Calcium - 8.7 mg/dL BUN (09/15/2022) ???BUN - 8 mg/dL Calcium Ionized (09/12/2022) ???Calcium, Ionized pH Corrected - 1.19 mmol/L Calcium Level (09/15/2022) ???Calcium - 8.4 mg/dL CBC (09/15/2022) ???WBC - 9.7 k/mm3???RBC - 3.66 m/mm3???Hgb - 10.8 Gm/dL???Hct - 33.6 %???MCV - 91.8 femtoliters???MCH - 29.5 pg???MCHC - 32.1 g/dL???Platelet Count - 311 k/mm3???RDW-SD - 43.6 femtoliters???MPV - 10.8 femtoliters???Nucleated RBC (Automated) - 0.0 #/100 WBC'S???Abs. NRBC - 0.0 k/mm3 CBC w/ Differential (09/13/2022) ???WBC - 12.5 k/mm3???RBC - 4.13 m/mm3???Hgb - 12.2 Gm/dL???Hct - 37.6 %???MCV - 91.0 femtoliters???MCH - 29.5 pg???MCHC - 32.4 g/dL???Platelet Count - 344 k/mm3???RDW-SD - 43.3 femtoliters???MPV - 10.1 femtoliters???Nucleated RBC (Automated) - 0.0 #/100 WBC'S???Abs. NRBC - 0.0 k/mm3???Abs. Neut - 7.6 k/mm3???Abs. Lymph - 2.9 k/mm3???Abs. [place] - 1.1 k/mm3???Abs. Eo - 0.8 k/mm3???Abs. Baso - 0.1 k/mm3???Neut % - 60.7 %???Lymph % - 23.1 %???[place] % - 8.9 %???Eos % - 6.2 %???Baso % - 0.8 %???Imm Gran - 0.3 %???Abs. Imm Gran - 0.0 k/mm3 COVID-19 (Novel Coronavirus), Rapid PCR (09/13/2022) ???COVID-19 by RT-PCR - NEGATIVE COVID-19, RSV, FLU A/B PCR (09/15/2022) ???Influenza A PCR - NEGATIVE???Influenza B PCR - NEGATIVE???RSV PCR - NEGATIVE???COVID-19 PCR Specimen Source - NASAL???COVID-19 PCR Result - NEGATIVE Creatinine (09/15/2022) ???Creatinine-Blood - 0.8 mg/dL???Estimated GFR Creatinine - 102 ML/MIN/1.73 M2 Electrolytes (09/15/2022) ???Sodium - 138 mmol/L???Potassium - 4.4 mmol/L???Chloride - 108 mmol/L???Bicarbonate Level - 20 mmol/L???Anion Gap - 10 Glucose Level (09/15/2022) ???Glucose Level - 112 mg/dL HEPATIC FUNCTION PANEL (09/13/2022) ???Protein, Total - 7.6 Gm/dL???Albumin - 5.0 Gm/dL???Alkaline Phosphatase - 83 units/L???AST (SGOT) - 25 units/L???ALT (SGPT) - 17 units/L???Bilirubin, Total - 0.6 mg/dL???Bilirubin, Direct - 0.2 mg/dL???Bilirubin, Indirect - 0.4 mg/dL HOLD GEL TUBE (09/13/2022) ???Hold Gel Top - SPECIMEN DISCARDED AFTER 1 WEEK HOLD GREEN TUBE (09/13/2022) ???Hold Green Top - SPECIMEN DISCARDED AFTER 1 WEEK HOLD LAVENDER TUBE (09/13/2022) ???Hold Lavender Top - SPECIMEN DISCARDED AFTER 24 HOURS. Lipase (09/12/2022) ???Lipase - 43 units/L Magnesium Level (09/12/2022) ???Magnesium - 1.7 mg/dL Serum Qualitative (09/12/2022) ??? Serum Qual - NEGATIVE Immunizations This Visit Given Vaccine Dateinfluenza virus vaccine, inactivated 09/15/2022 Allergies (NKA means No Known Allergies) Bactrim??(Angioedema) Problems Active Problems??(4) Aggressive behavior?? Eating disorder NOS?? Interstitial cystitis?? Obese class I?? Education Materials Below is the list of Educational Leaflet Providered with your Discharge Instructions. Alcohol Intoxication?? Alcohol Withdrawal Seizure?? Life After Combat: Coping with Alcohol Abuse?? Alcohol Abuse?? Valuables and Belongings I fully understand and agree that [facility] accepts no responsibility for all my personal property including clothing, toilet articles, radios, jewelry, dentures, hearing aids, rings, money, or any other property that is in my possession or is brought to me after admission. I understand certain valuables may be placed in a hospital safe for a short period of time. I understand that the hospital is not liable for loss or damage due to accident, fire, or other natural occurrence while said property is in the safe. I accept full responsibility for any personal property that I keep with me, and will not hold the hospital responsible in case of loss or disappearance. I acknowledge that i have been encouraged to send valuables and belongings home. ?? No Valuables/Belongings: No valuables/belongings present Review of Valuable and Belonging List: With patient, With witness Date for Pt to Sign Valuables/Belongings: 09/14/22 09:34:00 ?? Other Discharge Information ? Pulmonary Rehab Status?? Pulmonary Rehab Discharge Status?? Respiratory Rate: 22 br/min ? Common Emergency Awareness Tips IS IT A STROKE? Act FAST and Check for these signs: FACE Does the face look uneven? ARM Does one arm drift down? SPEECH Does their speech sound strange? TIME Call at any sign of stroke ?? Heart Attack Signs Chest discomfort: Most heart attacks involve discomfort in the center of the chest and lasts more than a few minutes, or goes away and comes back. It can feel like uncomfortable pressure, squeezing, fullness or pain. Discomfort in upper body: Symptoms can include pain or discomfort in one or both arms, back, neck, jaw or stomach. Shortness of breath: With or without discomfort. Other signs: Breaking out in a cold sweat, nausea, or lightheaded. Remember, MINUTES DO MATTER. If you experience any of these heart attack warning signs, call to get immediate medical attention! ?? Smoking can increase your chances of developing chronic health problems and can cause harmful effects to other family members in your house. If you smoke, you are strongly encouraged to quit. Please call [facility] at [phone] or [phone] ([phone]) or log in to [email or web address] for referrals to smoking cessation programs. ?? The National Suicide Prevention Hotline is available 13/05 if you or someone you know needs to find a reason to keep living. By calling 0-429-080-[facility] (5171) you'll be connected to a skilled, trained counselor at a crisis center in your area. INPATIENT DISCHARGE INSTRUCTIONS SIGNATURE PAGE KAVITHA RAGSDALE Location:[facility] Registration Date and Time:09/13/2022 03:59 EST Primary Care Physician: Kalyn Garcia MD, I KAVITHA RAGSDALE, have received the above patient education materials/instructions and have verbalized understanding. If ambulance or transport services are being used I further acknowledge being given a choice of service. ?? If you need to contact me, please call me at this number: . Patient/Chip Separator Name: Patient/Chip Separator Signature: Relationship to Patient: Witness Name/Signature: Date: * Sissy Sin RN: PERFORM Event Display: Patient Education Leaflets Authored Date: [id number] Vitamin B1 (thiamine) Oral Tablet ?? 56598-809 Vitamin B1 (thiamine) Oral Tablet Uses For vitamin replacement. ?? Instructions This medicine may be taken with or without food. Store at room temperature away from heat, light, and moisture. Do not keep in the bathroom. Tell your doctor and pharmacist about all your medicines. Include prescription and knei-wiy-ulollrkhcakwacpd, vitamins, and herbal medicines. Speak with your doctor or pharmacist before starting any other vitamins. ?? Cautions Tell your doctor and pharmacist if you ever had an allergic reaction to a medicine. Do not use the medication any more than instructed. ?? Side Effects This medicine usually has no side effects. A few people may have an allergic reaction to this medicine. Symptoms can include difficulty breathing, skin rash, itching, swelling, or severe dizziness. If you notice any of these symptoms, seek medical help quickly. ?? Extra Please speak with your doctor, nurse, or pharmacist if you have any questions about this medicine. ?? [email or web address] IMPORTANT NOTE: This document tells you briefly how to take your medicine, but it does not tell youall there is to know about it. Your doctor or pharmacist may give you other documents about your medicine. Please talk to them if you have any questions. Always follow their advice. There is a more complete description of this medicine available in Romanian. Scan this code on your smartphone or tablet or use the web address below. You can also ask your pharmacist for a printout. If you have any questions, please ask your pharmacist. The display and use of this drug information is subject to Terms of Use. Copyright(c) 2021 [employer]. ?? [employer]. All rights reserved. This information is not intended as a substitute for professional medical care. Always follow your healthcare professional's instructions. ?? * Sissy Sin RN: PERFORM Event Display: Patient Education Leaflets Authored Date: [id number] Acamprosate Delayed Release Oral Tablet ?? [id number] Acamprosate Delayed Release Oral Tablet Uses For treating alcohol dependence. ?? Instructions Swallow the medicine without crushing or chewing it. This medicine may be taken with or without food. Store at room temperature away from heat, light, and moisture. Do not keep in the bathroom. It is important that you keep taking each dose of this medicine on time even if you are feeling well. If you forget to take a dose on time, take it as soon as you remember. If it is almost time for thenext dose, do not take the missed dose. Return to your normal dosing schedule. Do not take 2 doses of this medicine at one time. Drug interactions can change how medicines work or increase risk for side effects. Tell your healthcare providers about all medicines taken. Include prescription and lako-mxp-rwnmott medicines, vitamins, and herbal medicines. Speak with your doctor or pharmacist before starting or stopping any medicine. Tell your doctor if symptoms do not get better or if they get worse. Keep all appointments for medical exams and tests while on this medicine. ?? Cautions Tell your doctor and pharmacist if you ever had an allergic reaction to a medicine. Some patients taking this medicine have experienced serious side effects. Please speak with your doctor to understand the risks and benefits associated with this medicine. Do not use the medication any more than instructed. Your ability to stay alert or to react quickly may be impaired by this medicine. Do not drive or operate machinery until you know how this medicine will affect you. Do not drink beverages with alcohol while on this medicine. Contact your doctor if you notice a change in the amount or darkening of your urine. Family should check on the patient often. Call the doctor if patient becomes more depressed, has thoughts of suicide, or shows changes in behavior. Tell the doctor or pharmacist if you are , planning to be , or . Do not share this medicine with anyone who has not been prescribed this medicine. ?? Side Effects The following is a list of some common side effects from this medicine. Please speak with your doctor about what you should do if you experience these or other side effects. ??? decreased appetite ??? bloating ??? constipation or diarrhea ??? dizziness or drowsiness ??? lack of energy and tiredness ??? headaches ??? joint or muscle pain ??? nausea and vomiting ??? problems with sexual functions or desire ??? stomach pain ??? weight gain ??? weight loss Call your doctor or get medical help right away if you notice any of these more serious side effects: ??? severe or persistent abdominal pain ??? coughing up blood or vomit that looks like coffee grounds ??? fainting ??? hearing loss ??? rapid heartbeat ??? mood changes ??? seizures ??? dark, tarry stool ??? thirst ??? blurring or changes of vision A few people may have an allergic reaction to this medicine. Symptoms can include difficulty breathing, skin rash, itching, swelling, or severe dizziness. If you notice any of these symptoms, seek medical help quickly. ?? Extra Please speak with your doctor, nurse, or pharmacist if you have any questions about this medicine. ?? [email or web address] IMPORTANT NOTE: This document tells you briefly how to take your medicine, but it does not tell youall there is to know about it. Your doctor or pharmacist may give you other documents about your medicine. Please talk to them if you have any questions. Always follow their advice. There is a more complete description of this medicine available in Romanian. Scan this code on your smartphone or tablet or use the web address below. You can also ask your pharmacist for a printout. If you have any questions, please ask your pharmacist. The display and use of this drug information is subject to Terms of Use. Copyright(c) 2021 [employer]. ?? The SPO. All rights reserved. This information is not intended as a substitute for professional medical care. Always follow your healthcare professional's instructions. ?? * Alen [facility], Bandar: PERFORM Event Display: Patient Education Leaflets Authored Date: [id number] Alcohol Intoxication ?? [id number] Alcohol Intoxication Alcohol intoxication is very serious. It occurs when you drink alcohol faster than your liver can break it down. Severe intoxication is a medical emergency. It's also called alcohol overdose or alcohol poisoning. It can lead to . Here are some drake facts: ??? It can take 10 minutes or more??to start??to??feel the effects of a drink. So it's easy to drink more than you planned. Binge drinking can lead to an alcohol overdose. Binge drinking is having: o5 or more drinks over a short time for men o 4 or more drinks over a short time for women ??? One drink may be more than 1 serving of alcohol. In some cases, a drink can be 2 to 4 servings. This depends on the type of drink. ??? It takes about 1 hour for your body to break down 1 serving of alcohol. If you have more than 1 drink, it can take a few hours or more. ??? People with alcohol abuse disorders are more likely to get alcohol poisoning. But it can happen to anyone who drinks too much alcohol. Even a first-time drinker is at risk. ??? Many things affect how drinks will affect you. These include: o If you've eaten o How fast you drink o Your weight o How much you normally drink (or not)o Medicines you are taking o If you have a chronic disease o If you are male or female o How old you are Symptoms of alcohol intoxication Mild intoxication ??? Feel more relaxed, less tense ??? Slightly slurred speech ??? Sleepiness ??? Poor motor skills Moderate intoxication ??? Changing behavior, aggression, depression ??? Poor judgment ??? Confusion ??? Trouble focusing ??? Poor balance and coordination ??? Worsening slurred speech Severe intoxication ??? Vomiting ??? Seizures ??? Fainting or passing out (unconscious) ??? Cold, clammy skin ??? Slow or irregular breathing ??? Low body temperature (hypothermia) ??? Coma ?? Health effects Alcohol causes health problems.??This can happen after only drinking a little. There is no set number of drinks or amount of alcohol that's too much.??How much you drink at one time affects your health. And so does drinking often. Alcohol affects your whole body in these ways: ??? Brain.??Alcohol can harm parts of the brain that affect your balance, memory, thinking, and feelings. It can cause memory loss, blackouts, depression, agitation, sleep cycle changes, and seizures. These changes may or may not go away. ??? Heart and vascular system.??Alcohol can damage heart muscle. This can cause the heart muscle to weaken and stretch (cardiomyopathy). This can lead to: o Trouble breathing o Irregular heartbeat o Atrial fibrillation o Leg swelling o Heart failure Alcohol also makes the blood vessels stiffen. This causes high blood pressure. All of these problems raise your risk for heart attacks or strokes. ??? Liver.??Alcohol causes fat to build up in the liver. This affects how the liver works. And it raises the risk for hepatitis. This condition leads to belly pain, appetite loss, yellow skin and eyes (jaundice), and bleeding problems. It also leads to harmful changes in the liver. These include??liver fibrosis and cirrhosis. This can affect your ability to fight off infections. These liver changes stop it from removing toxins in your blood. This can cause a brain disease called encephalopathy. ??? Pancreas.??Alcohol can cause inflammation of the pancreas (pancreatitis). It can lead to belly pain, fever, and diabetes. ??? Immune system.??Alcohol weakens your immune system. This makes it harder to fight off infections and colds. You'll also have a higherrisk of some infections. ??? Cancer risk.??Alcohol raises your risk of some types of cancer. They include cancer of the: o Mouth o Esophagus o Pharynx o Larynx o Liver o Breast ? Sexual function.??Alcohol abuse can also lead to sexual problems. There is no safe level of alcohol use for people who are or thinking of getting . Alcohol use in may cause lifelong harm to the baby. So alcohol should be avoided. It can also cause a group of defects called alcohol spectrum disorder. These defects can include physical problems. And also behavior and learning problems. ?? Home care for alcohol intoxication Follow these tips to care for yourself at home: ??? Don't drink any more alcohol. ??? Don't drive??until all effects of the alcohol have worn off. ??? Don't use machinery that can cause injuries. ??? Get lots of rest over the next few days. ??? Drink plenty of water and other drinks that don't have alcohol. ??? Try to eat regular meals. If you have been drinking a lot every day, you may have alcohol withdrawal. Symptoms often last 3 to 4 days. They may include: ??? Nervousness ??? Shakiness ??? Nausea ??? Sweating ??? Sleeplessness They may also include severe, life-threatening symptoms. These are known as delirium tremens (DTs).DTs typically begin between 48 and 96 hours after the last drink and last 1 to 5 days. They include: ??? Seizures ??? Confusion ??? Seeing or hearing things that are not there (hallucinations) Alcohol withdrawal can cause . Call your healthcare provider before you stop drinking. This isespecially important if you've had DTs during past alcohol withdrawals. They may be able to help you with medicine. They can also refer you to an inpatient detox program. Or stay with family or friends who know when to call for medical help and can support you. If you have severe symptoms, call your provider or call 911 for help (see below). ?? Follow-up care These groups can help you and your loved one: ??? Alcoholics Anonymous (A.A.). Gives support through a self-help fellowship. ?? Find A.A. meetings near you at www.aa.org. ??? Al-Anon. ?? Gives support to families at www.al-anon.org . Or call 182-641-7418. ??? SMART Recovery ( Self- Management and Recovery Training). A nationwide abstinence-oriented support group for people with addictive issues. This free program is focused on motivation to change, urge control, and living a balanced life. For more information and meetings near you, go to www.[employer] TV.org/ ??? Substance Abuse and Mental Health Services Administration (SAMHSA) Treatment Print Machine Operator. Free information on treatment resources in your area at https://findtreatment.gov/. Or call 685-751-1535. Call 911 Call 911 if any of these occur: ??? Trouble breathing or slow irregular breathing ??? Chest pain ??? Sudden weakness on 1 side of your body or sudden trouble speaking ??? Heavy bleeding or vomiting blood ??? Very sleepy or having trouble waking up ??? Fainting ??? Fast heart rate ??? Seizure ?? When to get medical advice Call your healthcare provider right away if any of these occur: ??? Severe shakiness? Fever of100.4??F (38??C) or higher, or as advised by your provider ??? Confusion or hallucinations ??? Painin your upper belly that gets worse ??? Repeated vomiting ?? Last Reviewed Date: 2021 ?? 2265-0596 The SPO. All rights reserved. This information is not intended as a substitute for professional medical care. Always follow your healthcare professional's instructions. ?? Portable XR Chest Views * BHSPowerscribe , CIS S: TRANSCRIBE Mayank Vail MD: VERIFY Event Display: Result: Authored Date: [id number] Chest Portable Reason: Cough; Clinical Question(s): Asthma / Asthma COMPARISON: 06/02/2019 FINDINGS: LINES AND TUBES: None. LUNGS AND PLEURA: Clear lungs. Normal pulmonary vascularity. No pleural effusion. No pneumothorax. HEART, MEDIASTINUM AND NAKITA: Heart is normal in size. Normal mediastinal and hilar contour. BONES AND SOFT TISSUES: No acute abnormality. IMPRESSION: No evidence of acute abnormality. WSN: [id number] Ordering Physician: Bandar Lowry Dictated By: Mayank Vail MD Dictated Date/Time: 09/15/22 11:25 a Reviewed By: Mayank Vail MD Signed By: Mayank Vail MD Signed Date/Time: 09/15/22 11:25 am Transcribed By: ANA CRISTINA Transcribed Date/Time: 09/15/22 11:25 am Patient Care team information Care Team Personnel Name: Kaylan Hall Position: [facility] Outreach Member Role: Lifetime Consulting Physician Name: Kari Penaloza Position: [facility] Outreach Member Role: Lifetime Consulting Physician Name: Lucia Elam RN Position: [facility] RN Member Role: Primary Care Nurse Name: Jovany Watson RN Position: [facility] RN Member Role: Primary Care Nurse Name: Kalyn Garcia MD Position: [facility] Outreach Member Role: PCP Address: Address: [address] [place] [id number] Name: Bhavya Hunter Position: [facility] Outreach Member Role: Lifetime Consulting Physician Name: Jose D Madrid III, RN Position: [facility] RN Member Role: Primary Care Nurse Name: Jarad Calvillo RN Position: [facility] RN Member Role: Primary Care Nurse Name: Caitlyn Vance RN Position: [facility] RN Member Role: Primary Care Nurse Name: Ina Pham RN Position: [facility] RN Member Role: Primary Care Nurse Name: Nahed Hamilton RN Position: [facility] SN RN Member Role: Primary Care Nurse Name: Jatin Carrillo RN Position: [facility] RN Member Role: Primary Care Nurse Name: Alfredo SNOW Attending Position: [facility] ED Medicine MD Name: Vernell Tabares RN Position: [facility] ED RN W/OE and Tasks Member Role: Patient Care Provider Name: Deb Waite Position: [facility] ED TA [facility] Member Role: Patient Care Provider Care Team Related Persons Name: TANESHA RAGSDALE Address: [address] [place] [address] Name: STERLING RAGSDALE Address: home [address] [place] [address]
--- OUTSIDE RECORDS SUMMARY | 2023-01-26 17:29 | XMS_ITS | Continuity of Care Document ---
Author Name Unknown Organization [facility] ter Address [address] [place] [address]- Care Team Providers Care Substation Electrician Supervisor Name Role Phone Jose [facility], Kalyn Primary Care Physician Encounter [facility] Date(s): 03/01/22 - 05/02/[address] [address]- Attending Physician: Geraldine Martinez NP Admitting Physician: Geraldine Martinez NP Referring Physician: Geraldine Martinez NP Allergies, Adverse Reactions, Alerts Substance Reaction Severity [...] 0 Refills, Maintenance, 10/17/20 15:02:00 EST, Tablet, [facility], 1 tablet By Mouth Daily,x30 days, 161, cm, 11/28/19 8:27:00 EST, Height, 63.5,kg, 10/13/20 16:02:00 EST, Dry Weight Start Date: 10/17/20 Stop Date: 11/16/20 Status: Ordered ondansetron 4 mg oral tablet, disintegrating 1 tablet = 4 mg, By Mouth, Every 6 hours, PRN as needed for nausea/vomiting, # 12 tablet, 0 Refills, Maintenance, 08/28/21 23:22:00 EST, DIS Tablet, [id number], Partial fill upon patient request if the [...]
--- OUTSIDE RECORDS SUMMARY | 2023-01-26 17:29 | XMS_ITS | Continuity of Care Document ---
Author Name Unknown Organization [facility] Address [address] [address]- Care Team Providers Care Broadcast Correspondent Name Role Phone Kalyn Garcia MD Primary Care Physician Encounter [facility] Date(s): 01/23/21 - 01/30/21 [facility] [address] [address] Attending Physician: Not on Staff, Attending Referring Physician: Kalyn Garcia MD Allergies, Adverse [...] 10/17/20 10:26:00 EST, Route to Pharmacy Electronically, [id number], 161, cm, 11/28/19 8:27:00 EST, Height, 63.5, kg, 10/13/20 16:02:00 EST,... Start Date: 10/17/20 Stop Date: 11/16/20 Status: Ordered folic acid 1 mg oral tablet 1 mg, 1, tablet, By Mouth, Daily, # 30 tablet, Refills 0, Tot. Refills 0, Maintenance, 10/17/20 15:01:00 EST, Route to Pharmacy Electronically, [facility], 161, cm, 11/28/19 8:27:00 EST, Height, 63.5, kg, 10/13/20 16:02:00 EST, Dry Weight Start Date: 10/17/20 Stop Date: 11/16/20 Status: Ordered multivitamin Multiple Vitamins oral tablet 1 tablet, By Mouth, Daily, # 30 tablet, 0 Refills, Maintenance, 10/17/20 15:02:00 EST, Tablet, [facility], 1 tablet By Mouth Daily,x30 days, 161, cm, 11/28/19 8:27:00 EST, Height, 63.5,kg, 10/13/20 16:02:00 EST, Dry Weight Start Date: 10/17/20 Stop Date: 11/16/20 Status: Ordered thiamine 100 mg oral tablet 100 mg, 1, tablet, By Mouth, Daily, # 30 tablet, Refills 0, Tot. Refills 0, Maintenance, 10/17/20 15:04:00 EST, Route to Pharmacy Electronically, [facility], 161, cm, 11/28/19 8:27:00 EST, Height, [...] 10/17/20 15:02:00 EST, Route to Pharmacy Electronically, [facility], Partial fill upon patient request if the prescription is for a schedule II o... Start Date: 10/17/20 Status: Ordered Problem List Condition Effective Dates Status Health Status Inform ant Interstitial cystitis(Confirmed) Active Eating disorder NOS(Confirmed) Active Vital Signs Most recent to oldest [Reference Range]: 1 Height 161 cm (01/23/21 1:48 PM) Weight 59 kg (01/23/21 1:48 PM) Body Mass Index [18.5-24.99] 22.76 (01/23/21 1:48 PM) Social History Social History Type Response Smoking Status 10 or more cigarette s (1/2 pack or more)/day in last 30 days entered on: 01/07/20 Sex
--- OUTSIDE RECORDS SUMMARY | 2023-01-26 17:29 | XMS_ITS | Continuity of Care Document ---
Author Name Unknown Organization [facility] Address [address] [address]- Care Team Providers Care Plate Hanger Name Role Phone Kalyn Garcia MD Primary Care Physician [place] [facility]17[place] 05/17/[address] [facility] [address] [address] Allergies, Adverse Reactions, Alerts Substance Reaction Severity [...] 10/17/20 10:26:00 EST, Route to Pharmacy Electronically, [facility], 161, cm, 11/28/19 8:27:00 EST, Height, 63.5, kg, 10/13/20 16:02:00 EST,... Start Date: 10/17/20 Stop Date: 11/16/20 Status: Ordered folic acid 1 mg oral tablet 1 mg, 1, tablet, By Mouth, Daily, # 30 tablet, Refills 0, Tot. Refills 0, Maintenance, 10/17/20 15:01:00 EST, Route to Pharmacy Electronically, [facility], 161, cm, 11/28/19 8:27:00 EST, Height, 63.5, kg, 10/13/20 16:02:00 EST, Dry Weight Start Date: 10/17/20 Stop Date: 11/16/20 Status: Ordered Liletta 52 mg intrauterine device See Instructions, 1 each Once, # 1 each, 0 Refills, Soft Stop, 03/13/21 9:32:00 EDT Start Date: 03/13/21 Status: Ordered metroNIDAZOLE 500 mg oral tablet See Instructions, 4 tablet By Mouth Once today, followed by 1 tablet twice a day for 6 days. do notdrink alcohol may take with food to minimize abdominal discomfort, # 16 tablet, 0 Refills, Soft Stop, 04/17/21 11:41:00 EDT, Tablet, [facility]/pharmacy #21... Start Date: 04/17/21 Status: Ordered multivitamin Multiple Vitamins oral tablet 1 tablet, By Mouth, Daily, # 30 tablet, 0 Refills, Maintenance, 10/17/20 15:02:00 EST, Tablet, [facility], 1 tablet By Mouth Daily,x30 days, 161, cm, 11/28/19 8:27:00 EST, Height, 63.5,kg, 10/13/20 16:02:00 EST, Dry Weight Start Date: 10/17/20 Stop Date: 11/16/20 Status: Ordered thiamine 100 mg oral tablet 100 mg, 1, tablet, By Mouth, Daily, # 30 tablet, Refills 0, Tot. Refills 0, Maintenance, 10/17/20 15:04:00 EST, Route to Pharmacy Electronically, [facility], 161, cm, 11/28/19 [...] 10/17/20 15:02:00 EST, Route to Pharmacy Electronically, [facility], Partial fill upon [...]
--- OUTSIDE RECORDS SUMMARY | 2023-01-26 17:29 | XMS_ITS | Continuity of Care Document ---
Author Name Unknown Organization [facility] Address [address] [address]- Care Team Providers Care Linux System Admin Name Role Phone Kalyn Garcia MD Primary Care Physician Encounter [facility] [place] Date(s): 03/21/20 - 03/28/20 [facility] [address] [address]- [facility] Attending Physician: Not on Staff, Attending MD Referring Physician: Yi Mcnair CNM Allergies, Adverse Reactions, Alerts Substance Reaction Severity [...] 06/19/19 9:32:08 EDT, Route to Pharmacy Electronically, [id number], [facility] Start Date: 06/19/19 Status: [...] 06/19/19 9:32:32 EDT, Route to Pharmacy Electronically, [id number], [facility] Start Date: 06/19/19 Stop Date: 07/19/19 Status: Ordered ibuprofen 600 mg oral tablet 600 mg, By Mouth, 3 times a day, PRN, # 30 tablet, Refills 0, Tot. Refills 0, Maintenance, Pain , Mild, 06/19/19 9:40:58 EDT, Route to Pharmacy Electronically, [id number], [facility] Start Date: 06/19/19 Status: Ordered multivitamin [...] 06/19/19 9:33:16 EDT, Route to Pharmacy Electronically, [id number], [facility] Start Date: 06/19/19 Status: Ordered Sprintec 0.25 mg-35 mcg oral tablet 1 tablet, By Mouth, Daily, Please deliver to Pt at [facility], [address] [place] [address]. Thank you. startfirst tablet today, # 28 tablet, 11 Refills, Maintenance, 01/07/20 12:15:00 EDT, Tablet, [facility], 1 tablet By Mouth Daily,... Start Date: 01/07/20 Status: Ordered thiamine 100 mg oral tablet 100 mg, 1, tablet, By Mouth, Daily, # 30 tablet, Refills 0, Tot. Refills 0, Maintenance, 06/19/19 9:32:34 EDT, Route to Pharmacy Electronically, [id number], [facility] Start Date: 06/19/19 Stop Date: [...]
--- OUTSIDE RECORDS SUMMARY | 2023-01-26 17:29 | XMS_ITS | Continuity of Care Document ---
Author Name Unknown Organization [facility] Address [address] [address]- Care Team Providers Care Alodize Machine Helper Name Role Phone Kalyn Garcia MD Primary Care Physician Encounter [facility] [id number] Date(s): 04/13/21 - 05/13/21 [facility] [address] [address] Attending Physician: Elva Carter Admitting Physician: Elva Carter Referring Physician: AdmtrElva Allergies, Adverse Reactions, Alerts Substance Reaction Severity [...] 10/17/20 10:26:00 EST, Route to Pharmacy Electronically, [id number], 161, cm, 11/28/19 8:27:00 EST, Height, 63.5, kg, 10/13/20 16:02:00 EST,... Start Date: 10/17/20 Stop Date: 11/16/20 Status: Ordered folic acid 1 mg oral tablet 1 mg, 1, tablet, By Mouth, Daily, # 30 tablet, Refills 0, Tot. Refills 0, Maintenance, 10/17/20 15:01:00 EST, Route to Pharmacy Electronically, [facility] 3, 161, cm, 11/28/19 8:27:00 EST, Height, [...] Refills, Soft Stop, 04/17/21 11:41:00 EDT, Tablet, [facility]/pharmacy #21... Start Date: 04/17/21 Status: Ordered multivitamin Multiple Vitamins oral tablet 1 tablet, By Mouth, Daily, # 30 tablet, 0 Refills, Maintenance, 10/17/20 15:02:00 EST, Tablet, [facility], 1 tablet By Mouth Daily,x30 days, 161, cm, 11/28/19 8:27:00 EST, Height, 63.5,kg, 10/13/20 16:02:00 EST, Dry Weight Start Date: 10/17/20 Stop Date: 11/16/20 Status: Ordered thiamine 100 mg oral tablet 100 mg, 1, tablet, By Mouth, Daily, # 30 tablet, Refills 0, Tot. Refills 0, Maintenance, 10/17/20 15:04:00 EST, Route to Pharmacy Electronically, [facility], 161, cm, 11/28/19 8:27:00 EST, Height, [...] 10/17/20 15:02:00 EST, Route to Pharmacy Electronically, [facility], Partial fill upon patient request [...]
--- OUTSIDE RECORDS SUMMARY | 2023-01-26 17:29 | XMS_ITS | Continuity of Care Document ---
Author Name Unknown Organization [facility] Address Unknown Care Team Providers Care Black Jack Dealer Name Role Phone Jose SIU, Kalyn Primary Care Physician Encounter [facility] [place] Date(s): 09/11/21 - 11/11/21 [facility] Attending Physician: Not on Staff, Attending Referring [...] 0 Refills, Maintenance, 10/17/20 15:02:00 EST, Tablet, [facility], 1 tablet By Mouth Daily,x30 days, 161, cm, 11/28/19 8:27:00 EST, Height, 63.5,kg, 10/13/20 16:02:00 EST, Dry Weight Start Date: 10/17/20 Stop Date: 11/16/20 Status: Ordered ondansetron 4 mg oral tablet, disintegrating 1 tablet = 4 mg, By Mouth, Every 6 hours, PRN as needed for nausea/vomiting, # 12 tablet, 0 Refills, Maintenance, 08/28/21 23:22:00 EST, DIS Tablet, [id number], Partial fill upon patient request if the [...]
--- OUTSIDE RECORDS SUMMARY | 2023-01-26 17:29 | XMS_ITS | Continuity of Care Document ---
Author Name Unknown Organization [facility] Address [address] [address]- Care Team Providers Care Sluice Tender Name Role Phone Kalyn Garcia MD Primary Care Physician [place] [facility] [place] [id number] Date(s): 03/21/20 - 04/20/20 [facility] [address] [address]- [facility] Attending Physician: Elva Carter Admitting Physician: Elva [...] 06/19/19 9:32:08 EDT, Route to Pharmacy Electronically, [id number], [facility] Start Date: 06/19/19 Status: Ordered [...] 06/19/19 9:32:32 EDT, Route to Pharmacy Electronically, [id number], [facility] 3 Start Date: 06/19/19 Stop Date: 07/19/19 Status: Ordered ibuprofen 600 mg oral tablet 600 mg, By Mouth, 3 times a day, PRN, # 30 tablet, Refills 0, Tot. Refills 0, Maintenance, Pain , Mild, 06/19/19 9:40:58 EDT, Route to Pharmacy Electronically, [id number], [facility] 3 Start Date: 06/19/19 Status: [...] 06/19/19 9:33:16 EDT, Route to Pharmacy Electronically, [id number], [facility] 3 Start Date: 06/19/19 Status: Ordered thiamine 100 mg oral tablet 100 mg, 1, tablet, By Mouth, Daily, # 30 tablet, Refills 0, Tot. Refills 0, Maintenance, 06/19/19 9:32:34 EDT, Route to Pharmacy Electronically, [id number], [facility] Start Date: 06/19/19 Stop Date: [...]
--- OUTSIDE RECORDS SUMMARY | 2023-01-26 17:29 | XMS_ITS | Continuity of Care Document ---
Author Name Unknown Organization [facility] ion Address [address] [place] [address]- Care Team Providers Care Turpentine Distiller Name Role Phone Kalyn Garcia MD Primary Care Physician En[id number] Date(s): 10/03/21 - 11/08/[address] [address] Attending Physician: Dee Pineda NP Admitting Physician: Dee Pineda NP Referring Physician: Dee Pineda NP Allergies, Adverse Reactions, Alerts Substance Reaction [...] 0 Refills, Maintenance, 10/17/20 15:02:00 EST, Tablet, [facility], 1 tablet By Mouth Daily,x30 days, 161, cm, 11/28/19 8:27:00 EST, Height, 63.5,kg, 10/13/20 16:02:00 EST, Dry Weight Start Date: 10/17/20 Stop Date: 11/16/20 Status: Ordered ondansetron 4 mg oral tablet, disintegrating 1 tablet = 4 mg, By Mouth, Every 6 hours, PRN as needed for nausea/vomiting, # 12 tablet, 0 Refills, Maintenance, 08/28/21 23:22:00 EST, DIS Tablet, [facility] #[id number], Partial fill upon patient request if the [...]
--- OUTSIDE RECORDS SUMMARY | 2023-01-26 17:29 | XMS_ITS | Continuity of Care Document ---
Author Name Unknown Organization [facility] Address [address] [place] [address]- Care Team Providers Care Gantry Crane Operator Name Role Phone Kalyn Garcia MD Primary Care Physician Encounter [facility] [place] Date(s): 10/13/20 - 10/17/[address] [address]- Encounter Diagnosis Alcohol withdrawal(Final) - 10/13/20 Discharge Disposition: A-D/C Home Attending Physician: Cathryn Francis MD Admitting Physician: Moira Matthews MD Referring Physician: Not on Staff, Referring [...] 10/17/20 10:26:00 EST, Route to Pharmacy Electronically, [id number], 161, cm, 11/28/19 8:27:00 EST, Height, 63.5, kg, 10/13/20 16:02:00 EST,... Start Date: 10/17/20 Stop Date: 11/16/20 Status: Ordered folic acid 1 mg oral tablet 1 mg, 1, tablet, By Mouth, Daily, # 30 tablet, Refills 0, Tot. Refills 0, Maintenance, 10/17/20 15:01:00 EST, Route to Pharmacy Electronically, [facility], 161, cm, 11/28/19 8:27:00 EST, Height, 63.5, kg, 10/13/20 16:02:00 EST, Dry Weight Start Date: 10/17/20 Stop Date: 11/16/20 Status: Ordered multivitamin Multiple Vitamins oral tablet 1 tablet, By Mouth, Daily, # 30 tablet, 0 Refills, Maintenance, 10/17/20 15:02:00 EST, Tablet, [facility], 1 tablet By Mouth Daily,x30 days, 161, cm, 11/28/19 8:27:00 EST, Height, 63.5,kg, 10/13/20 16:02:00 EST, Dry Weight Start Date: 10/17/20 Stop Date: 11/16/20 Status: Ordered pyridoxine 50 mg oral tablet 50 mg, 1, tablet, By Mouth, Daily, # 30 tablet, Refills 0, Tot. Refills 0, Acute 11/17/20 8:00:00 EST, 10/17/20 15:03:00 EST, Route to Pharmacy Electronically, [facility], Partial fill upon patient request if the prescription is for a sc... Start Date: 10/17/20 Stop Date: 11/17/20 Status: Ordered thiamine 100 mg oral tablet 100 mg, 1, tablet, By Mouth, Daily, # 30 tablet, Refills 0, Tot. Refills 0, Maintenance, 10/17/20 15:04:00 EST, Route to Pharmacy Electronically, [facility], 161, cm, 11/28/19 8:27:00 [...] opioid drug. Start Date: 10/13/20 Status: Ordered Tylenol 325 mg oral tablet 650 mg, Tablet, By Mouth, Every 4 hours, PRN for Pain , Moderate, Routine, 10/13/20 17:28:00 EST Start Date: 10/13/20 Stop Date: 11/12/20 Status: Ordered venlafaxine 37.5 mg oral capsule, extended release 37.5 mg, 1, capsule, By Mouth, Daily, # 30 capsule, Refills 0, Tot. Refills 0, Maintenance, 10/17/20 15:02:00 EST, Route to Pharmacy Electronically, [facility], Partial fill upon patient request if the prescription is for a schedule II o... Start Date: 10/17/20 Status: Ordered Problem List Condition Effective Dates Status Health Status Inform ant Interstitial cystitis(Confirmed) Active Eating disorder NOS(Confirmed) Active Vital Signs Most recent to oldest [Reference Range]: 1 2 3 Weight 63.5 kg (10/13/20 4:02 PM) 63.5 kg (10/13/20 2:42 PM) 63.5 kg (10/13/20 11:25 AM) Oxygen Saturation [94-100 %] 100 % (10/17/20 5:36 AM) 94 % (10/16/20 8:28 PM) 99 % (10/16/20 1:43 PM) Pulse Rate [55-90 bpm] 88 bpm (10/17/20 5:36 AM) 108 bpm *H* (10/16/20 8:28 PM) 101 bpm *H* (10/16/20 1:43 PM) Blood Pressure [90-138/55-84 mm Hg] 90/55mm Hg (10/17/20 5:41 AM) 97/46mm Hg (10/17/20 5:36 AM) 98/64mm Hg (10/16/20 8:28 PM) Respiratory Rate [16-30 br/min] 18 br/min (10/17/20 5:36 AM) 18 br/min (10/17/20 1:18 AM) 18 br/min (10/16/20 8:28 PM) Temperature [96.8-100.4 DegF] 97.7 DegF (10/17/20 5:36 AM) 98.6 DegF (10/16/20 8:28 PM) 98.4 DegF (10/16/20 1:43 PM) Mode of Delivery (Oxygen) Room air (10/17/20 5:36 AM) Room air (10/16/20 8:28 PM) Room air (10/16/20 5:16 AM) Blood pressure sites Arm, right (10/17/20 5:41 AM) Arm, left (10/17/20 5:36 AM) Arm, right (10/16/20 8:28 PM) Temperature Route Oral (10/17/20 5:36 AM) Oral (10/16/20 8:28 PM) Oral (10/16/20 1:43 PM) Dry Weight 63.5 kg (10/13/20 4:02 PM) 63.5 kg (10/13/20 2:42 PM) 63.5 kg (10/13/20 11:25 AM) Weight Obtained Via Standing scale (10/13/20 11:25 AM) Dry Weight Obtained Via Standing scale (10/13/20 11:25 AM) Social History Social History Type Response Smoking Status 10 or more cigarette s (1/2 pack or more)/day in last 30 days entered on: 01/07/20 Sex
--- OUTSIDE RECORDS SUMMARY | 2023-01-26 17:29 | XMS_ITS | Continuity of Care Document ---
Author Name Unknown Organization [facility] Address [address] [place] [address]- Care Team Providers Care Zinc Miner Blasting Name Role Phone Kalyn Garcia MD Primary Care Physician Encounter [facility] [place] Date(s): 07/12/20 - 08/25/[address] [address] [phone] Attending Physician: Mike HARO, Geraldine Bustos Admitting Physician: Mike HARO, Geraldine Bustos Referring Physician: Mike HARO, Geraldine Bustos Allergies, Adverse Reactions, Alerts Substance Reaction Severity [...] 06/19/19 9:32:08 EDT, Route to Pharmacy Electronically, [id number], [facility] Start Date: 06/19/19 Status: [...] 06/19/19 9:32:32 EDT, Route to Pharmacy Electronically, [id number], [facility] 3 Start Date: 06/19/19 Stop Date: 07/19/19 Status: Ordered ibuprofen 600 mg oral tablet 600 mg, By Mouth, 3 times a day, PRN, # 30 tablet, Refills 0, Tot. Refills 0, Maintenance, Pain , Mild, 06/19/19 9:40:58 EDT, Route to Pharmacy Electronically, [id number], [facility] 3 Start Date: 06/19/19 Status: Ordered multivitamin [...] 06/19/19 9:33:16 EDT, Route to Pharmacy Electronically, [id number], [facility] 3 Start Date: 06/19/19 Status: Ordered thiamine 100 mg oral tablet 100 mg, 1, tablet, By Mouth, Daily, # 30 tablet, Refills 0, Tot. Refills 0, Maintenance, 06/19/19 9:32:34 EDT, Route to Pharmacy Electronically, [id number], [facility] 3 Start Date: 06/19/19 Stop Date: [...]
--- OUTSIDE RECORDS SUMMARY | 2023-01-26 17:29 | XMS_ITS | Continuity of Care Document ---
Author Name Unknown Organization [facility] ion Address [address] [place] [address]- Care Team Providers Care Support Teacher Name Role Phone Kalyn Garcia MD Primary Care Physician Encounter [facility] [place] Date(s): 04/05/22 - 05/05/[address] [address] Attending Physician: Elva Carter Admitting Physician: Elva [...] 0 Refills, Maintenance, 10/17/20 15:02:00 EST, Tablet, [facility], 1 tablet By Mouth Daily,x30 days, 161, cm, 11/28/19 8:27:00 EST, Height, 63.5,kg, 10/13/20 16:02:00 EST, Dry Weight Start Date: 10/17/20 Stop Date: 11/16/20 Status: Ordered ondansetron 4 mg oral tablet, disintegrating 1 tablet = 4 mg, By Mouth, Every 6 hours, PRN as needed for nausea/vomiting, # 12 tablet, 0 Refills, Maintenance, 08/28/21 23:22:00 EST, DIS Tablet, [facility] #[id number], Partial fill upon patient request if the [...]
--- OUTSIDE RECORDS SUMMARY | 2023-01-26 17:29 | XMS_ITS | Continuity of Care Document ---
Author Name Unknown Organization [facility] Address [address] [address]- Care Team Providers Care Excel Analyst Name Role Phone Kalyn Garcia MD Primary Care Physician Encounter [facility] [place] ACCT R [id number] Date(s): 01/07/20 - 01/17/20 [facility] [address] [address]- [facility] Attending Physician: Elva Carter [...] 06/19/19 9:32:08 EDT, Route to Pharmacy Electronically, [id number], [facility] Start Date: 06/19/19 Status: [...] 06/19/19 9:32:32 EDT, Route to Pharmacy Electronically, [id number], [facility] 3 Start Date: 06/19/19 Stop Date: 07/19/19 Status: Ordered ibuprofen 600 mg oral tablet 600 mg, By Mouth, 3 times a day, PRN, # 30 tablet, Refills 0, Tot. Refills 0, Maintenance, Pain , Mild, 06/19/19 9:40:58 EDT, Route to Pharmacy Electronically, [id number], [facility] 3 Start Date: 06/19/19 Status: Ordered [...] 06/19/19 9:33:16 EDT, Route to Pharmacy Electronically, [id number], [facility] 3 Start Date: 06/19/19 Status: Ordered Sprintec 0.25 mg-35 mcg oral tablet 1 tablet, By Mouth, Daily, Please deliver to Pt at [facility], [address] [place] [address]. Thank you. startfirst tablet today, # 28 tablet, 11 Refills, Maintenance, 01/07/20 12:15:00 EDT, Tablet, [facility] 1 tablet By Mouth Daily,... Start Date: 01/07/20 Status: Ordered thiamine 100 mg oral tablet 100 mg, 1, tablet, By Mouth, Daily, # 30 tablet, Refills 0, Tot. Refills 0, Maintenance, 06/19/19 9:32:34 EDT, Route to Pharmacy Electronically, [id number], [facility] 3 Start Date: 06/19/19 Stop Date: [...]
== END 2023-01-26 20:04 | disposition home or self-care (01) ==
PROVIDERS: Physician Assistant Medical; Emergency Provider Emergency Medicine
DX: G44.209 Tension-type headache, unspecified, not intractable (principal); M62.838 Other muscle spasm
CPT/HCPCS: 36415; 72100; 80053; 83735; 85025; 99282; 99283

== ENCOUNTER 2023-02-03 08:43 | Emergency (ER) | payer OTHER, SELFPAY ==
[2023-02-03 08:52] VITALS: BP 103/64; PULSE 112; RESP 16; TEMP 36.9; O2SAT 97; BMI 31.0
--- NOTE | 2023-02-03 09:21 | ED.PSYCH ---
HPI - Psych General Chief Complaint: ETOH/Substance Use <Renee Montoya NP - Last Filed: 02/03/23 16:58> Stated Complaint: crisis <Renee Montoya NP - Last Filed: 02/03/23 16:58> Time Seen by Provider: 02/03/23 09:06 <Renee Montoya NP - Last Filed: 02/03/23 16:58> Source: patient and family <Renee Montoya NP - Last Filed: 02/03/23 16:58> Mode of arrival: ambulatory <Renee Montoya NP - Last Filed: 02/03/23 16:58> Limitations: no limitations <Renee Montoya NP - Last Filed: 02/03/23 16:58> History of Present Illness HPI Narrative: 27-year-old female with a history of anxiety, PTSD, bipolar disorder who presents to the ER stating I need to go to a homeless halfway. Patient reports she is currently living with her parents. She tells me that they require her to be sober and she fucked up yesterday and drank alcohol after having a panic attack. Patient reports they told her she cannot come home. She tells me she wants to go to a homeless halfway to proved to her parents that she can be independent in take care of herself. Patient tells me she stopped taking all for bipolar medications about a week ago because she was having hair loss. She states that she feels better than ever since stopping her bipolar medicine and does not feel like she needs it. She does have a history of alcohol abuse. She tells me that she has been sober until yesterday when she drank a large amount of alcohol. Patient reports that she has had history of alcohol dependence needing to be detoxed. She has had history of alcohol withdrawal seizures and severe withdrawal symptoms. She does not use any other substances. She does have Xanax which she uses occasionally for panic attacks and tells me she uses this approximately 3 times per month. She does not use it more frequently than that. She denies SI, HI, hallucinations. She states she was going to partial hospitalization but stops because she is dealing with some back pain and currently going to physical therapy. <Renee Montoya NP - Last Filed: 02/03/23 16:58> Related Data Home Medications: Home Medications Medication Instructions Recorded Confirmed lisdexamfetamine 30 mg capsule 1 cap PO BID 11/16/22 01/15/23 (Vyvanse) albuterol sulfate 90 mcg/actuation 2 puff inhalation Q4H 11/17/22 01/15/23 aerosol inhaler (Ventolin HFA) topiramate 100 mg tablet 200 mg PO BEDTIME 12/21/22 01/15/23 clonidine HCl 0.1 mg tablet 0.1 mg PO DAILY PRN Panic Attack(S) 01/15/23 01/15/23 clonidine HCl 0.1 mg tablet 0.2 mg PO BEDTIME 01/15/23 01/15/23 folic acid 1 mg tablet 1 mg PO DAILY 01/15/23 01/15/23 norethindrone (contraceptive) 0.35 0.35 mg PO DAILY 01/15/23 01/15/23 mg tablet risperidone 0.5 mg tablet 0.5 mg PO DAILY PRN Anxiety 01/15/23 01/15/23 (Risperdal) Previous Rx's Medication Instructions Recorded trazodone 100 mg tablet 200 mg PO BEDTIME 30 days #60 tabs 11/29/22 cyclobenzaprine 5 mg tablet 5 mg PO BID PRN muscle spasm #20 01/26/23 tabs <Renee Montoya NP - Last Filed: 02/03/23 16:58> Allergies/Adverse Reactions: Allergies Allergy/AdvReac Type Severity Reaction Status Date / Time sulfamethoxazole Allergy Itching, Verified 02/03/23 08:57 [From Bactrim] swelling of the lips. trimethoprim [From Bactrim] Allergy Itching, Verified 02/03/23 08:57 swelling of the lips. <Renee Montoya NP - Last Filed: 02/03/23 16:58> Review of Systems Review of Systems: Yes all other systems are reviewed and are negative <Renee Montoya NP - Last Filed: 02/03/23 16:58> Constitutional: Constitutional: Reports no additional constitutional complaints, Denies body ache(s), Denies chills, Denies fever(s), Denies headache(s) and Denies weakness <Renee Montoya NP - Last Filed: 02/03/23 16:58> Eyes: Eyes: Reports no additional eye complaints and Denies change in vision <Renee Montoya [employer] DEVELOPMENT MANAGER - Last Filed: 02/03/23 16:58> ENT: Reports system reviewed and no additional complaints, except as documented, Denies dizziness, Denies headache(s), Denies nasal congestion, Denies nasal discharge and Denies neck pain <Renee Montoya [employer] DEVELOPMENT MANAGER - Last Filed: 02/03/23 16:58> Cardiovascular: Cardiovascular: Reports no additional cardiovascular complaints, Denies chest pain, Denies leg edema and Denies dyspnea <Renee Montoya [employer] DEVELOPMENT MANAGER - Last Filed: 02/03/23 16:58> Respiratory: Respiratory: Reports no additional respiratory complaints, Denies cough and Denies dyspnea <Renee Montoya [employer] DEVELOPMENT MANAGER - Last Filed: 02/03/23 16:58> Gastrointestinal: Gastrointestinal: Reports no additional gastrointestinal complaints, Denies abdominal pain, Denies diarrhea, Denies nausea and Denies vomiting <Renee Montoya, [employer] DEVELOPMENT MANAGER - Last Filed: 02/03/23 16:58> Genitourinary: Genitourinary: Reports no additional female genitourinary complaints and Denies urinary incontinence <Renee Montoya [employer] DEVELOPMENT MANAGER - Last Filed: 02/03/23 16:58> Musculoskeletal: Musculoskeletal: Reports no additional musculoskeletal complaints, Denies back pain, Denies arthralgias, Denies joint swelling, Denies neck pain, Denies numbness and Denies tingling <Renee Montoya [employer] DEVELOPMENT MANAGER - Last Filed: 02/03/23 16:58> Integumentary/Breasts: Skin/Breast: Reports system reviewed and no additional complaints, except as docu and Denies rash <Renee Montoya [employer] DEVELOPMENT MANAGER - Last Filed: 02/03/23 16:58> Neurologic: Reports system reviewed and no additional complaints, except as documented, Denies Abnormal speech present, Denies dizziness, Denies headache(s), Denies numbness, Denies tingling and Denies weakness <Renee Montoya [employer] DEVELOPMENT MANAGER - Last Filed: 02/03/23 16:58> Psychiatric: Psychiatric: Reports anxiety <Renee Montoya NP - Last Filed: 02/03/23 16:58> PMFSH Past Medical History Attestation statement: The following information was validated with the patient. <Renee Montoya NP - Last Filed: 02/03/23 16:58> Source: old records reviewed and nursing notes reviewed <Renee Montoya NP - Last Filed: 02/03/23 16:58> Medical History: Medical History Bacterial vaginosis Bipolar 1 disorder Interstitial cystitis PID (pelvic inflammatory disease) PTSD (post-traumatic stress disorder) Sciatica of left side Social anxiety disorder Suicidal ideation <Renee Montoya NP - Last Filed: 02/03/23 16:58> Social History Social History: Social History Household Members: Family Household Members Other:: Grandfather Housing: Homeless Do you presently have visiting nurse or other home services: No Patient Tobacco Use Status: Former Tobacco user e-Cigarette/Vaping Use: Never Used Second Hand Smoke Exposure: No Substance Use Type: Amphetamines and Sedatives Advance Directives: No Advance Directives Information Provided: No Healthcare Proxy: No Guardian: No service: No Sexual orientation: Straight/Heterosexual <Renee Montoya NP - Last Filed: 02/03/23 16:58> Physical Exam Vital Signs: Vital Signs: Last Vital Signs Temp 98.4 F 02/03/23 08:52 Pulse 112 H 02/03/23 08:52 Resp 02/03/23 08:52 BP 103/64 02/03/23 08:52 Pulse Ox 97 02/03/23 08:52 O2 Del Method Room Air 02/03/23 08:52 BMI result Body Mass Index 31.0 <Renee Montoya NP - Last Filed: 02/03/23 16:58> Vital Signs: Last Vital Signs Temp 98.4 F 02/03/23 08:52 Pulse 112 H 02/03/23 08:52 Resp 02/03/23 08:52 BP 103/64 02/03/23 08:52 Pulse Ox 97 02/03/23 08:52 O2 Del Method Room Air 02/03/23 08:52 BMI result Body Mass Index 31.0 <Long Torres - Last Filed: 02/03/23 22:25> Const: General: cooperative, healthy appearing, comfortable and no acute distress <Renee Montoya NP - Last Filed: 02/03/23 16:58> Orientation/consciousness: patient oriented x3 <Renee Montoya [employer] DEVELOP[employer] MANAGER - Last Filed: 02/03/23 16:58> Limitations: no limitations <Renee Montoya [employer] DEVELOPMENT MANAGER - Last Filed: 02/03/23 16:58> HEENT: Head: Yes normal to inspection <Renee Montoya [employer] DEVELOPMENT MANAGER - Last Filed: 02/03/23 16:58> Ears: hearing grossly normal bilaterally <Renee Montoya [employer] DEVELOPMENT MANAGER - Last Filed: 02/03/23 16:58> General nose exam: Normal external nose present <Renee Montoya [employer] DEVELOPMENT MANAGER - Last Filed: 02/03/23 16:58> Face and sinus: Yes normal facial exam <Renee Montoya [employer] DEVELOPMENT MANAGER - Last Filed: 02/03/23 16:58> Mouth: Normal oral and palatal mucosa present <Renee Montoya [employer] DEVELOPMENT MANAGER - Last Filed: 02/03/23 16:58> Throat: Yes posterior oropharynx normal <Renee Montoya [employer] DEVELOPMENT MANAGER - Last Filed: 02/03/23 16:58> Eyes: General: appearance normal, both eyes and all related structures <Renee Montoya [employer] DEVELOPMENT MANAGER - Last Filed: 02/03/23 16:58> Pupils: Equal, round and reactive pupils present <Renee Montoya [employer] DEVELOPMENT MANAGER - Last Filed: 02/03/23 16:58> Neck: Neck: Yes normal visual inspection <Renee Montoya [employer] DEVELOPMENT MANAGER - Last Filed: 02/03/23 16:58> Chest: Chest palpation & inspection: normal inspection of the chest <Renee Montoya [employer] DEVELOPMENT MANAGER - Last Filed: 02/03/23 16:58> Resp: Effort & Inspection: normal respiratory effort <Renee Montoya [employer] DEVELOPMENT MANAGER - Last Filed: 02/03/23 16:58> Auscultation: clear to auscultation bilaterally <Renee Montoya [employer] DEVELOPMENT MANAGER - Last Filed: 02/03/23 16:58> Cardio: Rate: regular rate <Renee Montoya [employer] DEVELOPMENT MANAGER - Last Filed: 02/03/23 16:58> Rhythm: regular rhythm <Renee Montoya [employer] DEVELOPMENT MANAGER - Last Filed: 02/03/23 16:58> Peripheral pulses: Peripheral pulses 2+ throughout <Renee Montoya [employer] DEVELOPMENT MANAGER - Last Filed: 02/03/23 16:58> GI: Inspection: Yes normal to inspection <Renee Montoya [employer] DEVELOPMENT MANAGER - Last Filed: 02/03/23 16:58> Palpation (GI): Soft to palpation and nontender <Renee Montoya [employer] DEVELOPMENT MANAGER - Last Filed: 02/03/23 16:58> Auscultation: normal bowel sounds <Renee Montoya [employer] DEVELOPMENT MANAGER - Last Filed: 02/03/23 16:58> Back/Spine/Pelvis: Thoracic/Lumbar Spine: thoracic and lumbar spine normal to inspection <Renee Montoya [employer] DEVELOPMENT MANAGER - Last Filed: 02/03/23 16:58> Skin: General skin exam: no rashes or lesions noted <Renee Montoya [employer] DEVELOPMENT MANAGER - Last Filed: 02/03/23 16:58> Neuro: General: patient oriented x3, no focal motor deficits and normal sensation to monofilament <Renee Montoya [employer] DEVELOPMENT MANAGER - Last Filed: 02/03/23 16:58> Cranial nerves: Yes Equal, round and reactive pupils present <Renee Montoya [employer] DEVELOPMENT MANAGER - Last Filed: 02/03/23 16:58> Cognition (Neuro): normal cognition <Renee Montoya, [employer] DEVELOPMENT MANAGER - Last Filed: 02/03/23 16:58> Speech: No Abnormal speech present <Renee Montoya [employer] DEVELOPMENT MANAGER - Last Filed: 02/03/23 16:58> Gait exam (Neuro): Normal gait present <Renee Montoya [employer] DEVELOPMENT MANAGER - Last Filed: 02/03/23 16:58> Motor exam (neuro): 5/5 motor strength present throughout <Renee Montoya NP - Last Filed: 02/03/23 16:58> Extrem: General: Yes normal to inspection <Renee Montoya NP - Last Filed: 02/03/23 16:58> Course Course Course Narrative: 1430-labs are consistent with a mild ketoacidosis likely secondary to alcohol use. Patient will be given 2 L of IV fluids and we will recheck her lab <Renee Montoya NP - Last Filed: 02/03/23 16:58> Reevaluation(s) Reevaluation #1: Patient did meet with the care team. No safety concerns. Patient will meet with the professional athletes coach. Patient will need repeat labs after her fluids. If this is normal she can be discharged <Renee Montoya NP - Last Filed: 02/03/23 16:58> Reevaluation #2: 1630-Sign out to Felipe COLLAZO pending above <Renee Montoya NP - Last Filed: 02/03/23 16:58> Time: 22:24 <Long Torres - Last Filed: 02/03/23 22:25> Reevaluation #3: Patient received in sign-out at change shift pending care team evaluation who cleared the patient for discharge. <Long Torres - Last Filed: 02/03/23 22:25> Medications Administered Discontinued Medications Generic Name Dose Route Start Last Admin Trade Name Freq PRN Reason Stop Dose Admin Sodium Chloride 2,000 mls @ 999 mls/hr 02/03/23 14:25 02/03/23 16:51 Ns IV 02/03/23 16:25 Infused .Q2H1M STA Infusion <Renee Montoya NP - Last Filed: 02/03/23 16:58> Medications Administered Discontinued Medications Generic Name Dose Route Start Last Admin Trade Name Freq PRN Reason Stop Dose Admin Sodium Chloride 2,000 mls @ 999 mls/hr 02/03/23 14:25 02/03/23 16:51 Ns IV 02/03/23 16:25 Infused .Q2H1M STA Infusion <Long Torres - Last Filed: 02/03/23 22:25> Medical Decision Making Medical Decision Making MDM Narrative: 27-year-old female with history of bipolar disorder, PTSD, panic attacks, alcohol use disorder presents to the ER intoxicated, states she is homeless is apparent good throughout she has been drinking alcohol, off of her bipolar meds for several weeks. Patient is tearful, rambling. No SI or HI hallucination No concern for acute ingestion or trauma Will need labs, drug screen, crisis consultation <Renee Montoya NP - Last Filed: 02/03/23 16:58> Differential Diagnosis Differential Diagnoses: The differential diagnosis associated with the presentation includes <Renee Montoya NP - Last Filed: 02/03/23 16:58> Lab Data Result Diagrams: 02/03/23 13:37 02/03/23 13:37 <Renee Montoya NP - Last Filed: 02/03/23 16:58> Labs: Lab Results 02/03/23 02/03/23 02/03/23 Range/Units 13:02 13:02 13:37 WBC 7.4 (4.8-10.8) X10*3/uL RBC 4.32 (4.20-5.50) X10*6/uL Hgb 12.8 (12.0-16.0) g/dl Hct 39.5 (37.0-47.0) % MCV 91.4 (80.0-98.0) fL MCH 29.6 (27.0-33.0) pg MCHC 32.4 (31.0-35.0) g/dl RDW 13.2 (11.0-16.0) % Plt Count 301 (160-400) X10*3/uL Immature Gran % (Auto) 0.5 H (0.0-0.4) % Neut % (Auto) 46.8 (45-73) % Lymph % (Auto) 41.3 H (20-40) % Grand % (Auto) 8.7 (2-11) % Eos % (Auto) 1.5 (0-4) % Baso % (Auto) 1.2 (0-2) % Lymph # (Auto) 3.1 (1.2-4.9) X10*3/uL Grand # (Auto) 0.6 (0.1-1.2) X10*3/uL Eos # (Auto) 0.1 (0.0-0.4) X10*3/uL Baso # (Auto) 0.1 (0.0-0.2) X10*3/uL Abs Immat Gran (auto) 0.04 H (0.00-0.03) X10*3/uL Absolute Neuts (auto) 3.5 (2.0-8.3) x10*3/uL Absolute Nucleated RBC 0.000 (0.0-0.012) X10*3/uL Nucleated RBC % (auto) 0.0 (0.0-0.2) /100WBC Smear Tech's Comments VERIFIED VBG pH (7.32-7.43) VBG pCO2 mmHg VBG pO2 mmHg VBG HCO3 (22-26) mmol/L VBG O2 Saturation % VBG Base Excess mmol/L Sodium (135-145) mmol/L Potassium (3.3-5.1) mmol/L Chloride (96-108) mmol/L Carbon Dioxide (22-29) mmol/L Anion Gap (12-20) BUN (9-16) mg/dL Creatinine (0.5-1.4) mg/dL Estim Creat Clear Calc Estimated GFR Random Glucose (60-115) mg/dL Lactic Acid (0.5-2.0) mmol/L Lactic Acid F/U @ 2Hr (0.5-2.0) mmol/L Calcium (8.4-10.2) mg/dL Total Bilirubin (0.0-1.0) mg/dL Direct Bilirubin (0.0-0.5) mg/dL AST (5-31) U/L ALT (0-31) U/L Alkaline Phosphatase (39-117) U/L Total Protein (6.5-8.0) g/dL Albumin (3.5-5.0) g/dL Urine Test NEGATIVE (NEGATIVE) Salicylates (15-30) mg/dL Urine Opiates Screen Not Detected (Not Detect) Urine Fentanyl Screen Not Detected (Not Detect) Acetaminophen (<30) mcg/mL Ur Barbiturates Screen Not Detected (Not Detect) Ur Phencyclidine Scrn Not Detected (Not Detect) Ur Amphetamines Screen Not Detected (Not Detect) U Benzodiazepines Scrn POSITIVE H (Not Detect) Urine Cocaine Screen Not Detected (Not Detect) U Marijuana (THC) Screen Not Detected (Not Detect) Ethyl Alcohol mg/dL Acetone, Qual (Negative) 02/03/23 02/03/23 02/03/23 Range/Units 13:37 15:00 15:00 WBC (4.8-10.8) X10*3/uL RBC (4.20-5.50) X10*6/uL Hgb (12.0-16.0) g/dl Hct (37.0-47.0) % MCV (80.0-98.0) fL MCH (27.0-33.0) pg MCHC (31.0-35.0) g/dl RDW (11.0-16.0) % Plt Count (160-400) X10*3/uL Immature Gran % (Auto) (0.0-0.4) % Neut % (Auto) (45-73) % Lymph % (Auto) (20-40) % Grand % (Auto) (2-11) % Eos % (Auto) (0-4) % Baso % (Auto) (0-2) % Lymph # (Auto) (1.2-4.9) X10*3/uL Grand # (Auto) (0.1-1.2) X10*3/uL Eos # (Auto) (0.0-0.4) X10*3/uL Baso # (Auto) (0.0-0.2) X10*3/uL Abs Immat Gran (auto) (0.00-0.03) X10*3/uL Absolute Neuts (auto) (2.0-8.3) x10*3/uL Absolute Nucleated RBC (0.0-0.012) X10*3/uL Nucleated RBC % (auto) (0.0-0.2) /100WBC Smear Tech's Comments VBG pH (7.32-7.43) VBG pCO2 mmHg VBG pO2 mmHg VBG HCO3 (22-26) mmol/L VBG O2 Saturation % VBG Base Excess mmol/L Sodium 145 (135-145) mmol/L Potassium 4.7 (3.3-5.1) mmol/L Chloride 113 H (96-108) mmol/L Carbon Dioxide 12 L (22-29) mmol/L Anion Gap 25 H (12-20) BUN 8 L (9-16) mg/dL Creatinine 0.88 (0.5-1.4) mg/dL Estim Creat Clear Calc 99.5 Estimated GFR > 60 Random Glucose 79 (60-115) mg/dL Lactic Acid 2.3 H* (0.5-2.0) mmol/L Lactic Acid F/U @ 2Hr (0.5-2.0) mmol/L Calcium 8.9 (8.4-10.2) mg/dL Total Bilirubin 0.3 (0.0-1.0) mg/dL Direct Bilirubin 0.1 (0.0-0.5) mg/dL AST 27 (5-31) U/L ALT 40 H (0-31) U/L Alkaline Phosphatase 53 (39-117) U/L Total Protein 7.2 (6.5-8.0) g/dL Albumin 4.6 (3.5-5.0) g/dL Urine Test (NEGATIVE) Salicylates < 5.0 L (15-30) mg/dL Urine Opiates Screen (Not Detect) Urine Fentanyl Screen (Not Detect) Acetaminophen < 17 (<30) mcg/mL Ur Barbiturates Screen (Not Detect) Ur Phencyclidine Scrn (Not Detect) Ur Amphetamines Screen (Not Detect) U Benzodiazepines Scrn (Not Detect) Urine Cocaine Screen (Not Detect) U Marijuana (THC) Screen (Not Detect) Ethyl Alcohol 130 mg/dL Acetone, Qual Negative (Negative) 02/03/23 02/03/23 02/03/23 Range/Units 15:03 17:57 17:57 WBC (4.8-10.8) X10*3/uL RBC (4.20-5.50) X10*6/uL Hgb (12.0-16.0) g/dl Hct (37.0-47.0) % MCV (80.0-98.0) fL MCH (27.0-33.0) pg MCHC (31.0-35.0) g/dl RDW (11.0-16.0) % Plt Count (160-400) X10*3/uL Immature Gran % (Auto) (0.0-0.4) % Neut % (Auto) (45-73) % Lymph % (Auto) (20-40) % Grand % (Auto) (2-11) % Eos % (Auto) (0-4) % Baso % (Auto) (0-2) % Lymph # (Auto) (1.2-4.9) X10*3/uL Grand # (Auto) (0.1-1.2) X10*3/uL Eos # (Auto) (0.0-0.4) X10*3/uL Baso # (Auto) (0.0-0.2) X10*3/uL Abs Immat Gran (auto) (0.00-0.03) X10*3/uL Absolute Neuts (auto) (2.0-8.3) x10*3/uL Absolute Nucleated RBC (0.0-0.012) X10*3/uL Nucleated RBC % (auto) (0.0-0.2) /100WBC Smear Tech's Comments VBG pH 7.33 (7.32-7.43) VBG pCO2 44 mmHg VBG pO2 46 mmHg VBG HCO3 24 (22-26) mmol/L VBG O2 Saturation 70.0 % VBG Base Excess -1.7 mmol/L Sodium 143 (135-145) mmol/L Potassium 4.1 (3.3-5.1) mmol/L Chloride 115 H (96-108) mmol/L Carbon Dioxide 19 L (22-29) mmol/L Anion Gap 13 (12-20) BUN 9 (9-16) mg/dL Creatinine 0.88 (0.5-1.4) mg/dL Estim Creat Clear Calc 99.5 Estimated GFR > 60 Random Glucose 73 (60-115) mg/dL Lactic Acid (0.5-2.0) mmol/L Lactic Acid F/U @ 2Hr 1.7 (0.5-2.0) mmol/L Calcium 8.2 L D (8.4-10.2) mg/dL Total Bilirubin (0.0-1.0) mg/dL Direct Bilirubin (0.0-0.5) mg/dL AST (5-31) U/L ALT (0-31) U/L Alkaline Phosphatase (39-117) U/L Total Protein (6.5-8.0) g/dL Albumin (3.5-5.0) g/dL Urine Test (NEGATIVE) Salicylates (15-30) mg/dL Urine Opiates Screen (Not Detect) Urine Fentanyl Screen (Not Detect) Acetaminophen (<30) mcg/mL Ur Barbiturates Screen (Not Detect) Ur Phencyclidine Scrn (Not Detect) Ur Amphetamines Screen (Not Detect) U Benzodiazepines Scrn (Not Detect) Urine Cocaine Screen (Not Detect) U Marijuana (THC) Screen (Not Detect) Ethyl Alcohol mg/dL Acetone, Qual (Negative) <Renee Montoya, [employer] DEVELOPMENT MANAGER - Last Filed: 02/03/23 16:58> Lab Results 02/03/23 02/03/23 02/03/23 Range/Units 13:02 13:02 13:37 WBC 7.4 (4.8-10.8) X10*3/uL RBC 4.32 (4.20-5.50) X10*6/uL Hgb 12.8 (12.0-16.0) g/dl Hct 39.5 (37.0-47.0) % MCV 91.4 (80.0-98.0) fL MCH 29.6 (27.0-33.0) pg MCHC 32.4 (31.0-35.0) g/dl RDW 13.2 (11.0-16.0) % Plt Count 301 (160-400) X10*3/uL Immature Gran % (Auto) 0.5 H (0.0-0.4) % Neut % (Auto) 46.8 (45-73) % Lymph % (Auto) 41.3 H (20-40) % Grand % (Auto) 8.7 (2-11) % Eos % (Auto) 1.5 (0-4) % Baso % (Auto) 1.2 (0-2) % Lymph # (Auto) 3.1 (1.2-4.9) X10*3/uL Grand # (Auto) 0.6 (0.1-1.2) X10*3/uL Eos # (Auto) 0.1 (0.0-0.4) X10*3/uL Baso # (Auto) 0.1 (0.0-0.2) X10*3/uL Abs Immat Gran (auto) 0.04 H (0.00-0.03) X10*3/uL Absolute Neuts (auto) 3.5 (2.0-8.3) x10*3/uL Absolute Nucleated RBC 0.000 (0.0-0.012) X10*3/uL Nucleated RBC % (auto) 0.0 (0.0-0.2) /100WBC Smear Tech's Comments VERIFIED VBG pH (7.32-7.43) VBG pCO2 mmHg VBG pO2 mmHg VBG HCO3 (22-26) mmol/L VBG O2 Saturation % VBG Base Excess mmol/L Sodium (135-145) mmol/L Potassium (3.3-5.1) mmol/L Chloride (96-108) mmol/L Carbon Dioxide (22-29) mmol/L Anion Gap (12-20) BUN (9-16) mg/dL Creatinine (0.5-1.4) mg/dL Estim Creat Clear Calc Estimated GFR Random Glucose (60-115) mg/dL Lactic Acid (0.5-2.0) mmol/L Lactic Acid F/U @ 2Hr (0.5-2.0) mmol/L Calcium (8.4-10.2) mg/dL Total Bilirubin (0.0-1.0) mg/dL Direct Bilirubin (0.0-0.5) mg/dL AST (5-31) U/L ALT (0-31) U/L Alkaline Phosphatase (39-117) U/L Total Protein (6.5-8.0) g/dL Albumin (3.5-5.0) g/dL Urine Test NEGATIVE (NEGATIVE) Salicylates (15-30) mg/dL Urine Opiates Screen Not Detected (Not Detect) Urine Fentanyl Screen Not Detected (Not Detect) Acetaminophen (<30) mcg/mL Ur Barbiturates Screen Not Detected (Not Detect) Ur Phencyclidine Scrn Not Detected (Not Detect) Ur Amphetamines Screen Not Detected (Not Detect) U Benzodiazepines Scrn POSITIVE H (Not Detect) Urine Cocaine Screen Not Detected (Not Detect) U Marijuana (THC) Screen Not Detected (Not Detect) Ethyl Alcohol mg/dL Acetone, Qual (Negative) 02/03/23 02/03/23 02/03/23 Range/Units 13:37 15:00 15:00 WBC (4.8-10.8) X10*3/uL RBC (4.20-5.50) X10*6/uL Hgb (12.0-16.0) g/dl Hct (37.0-47.0) % MCV (80.0-98.0) fL MCH (27.0-33.0) pg MCHC (31.0-35.0) g/dl RDW (11.0-16.0) % Plt Count (160-400) X10*3/uL Immature Gran % (Auto) (0.0-0.4) % Neut % (Auto) (45-73) % Lymph % (Auto) (20-40) % Grand % (Auto) (2-11) % Eos % (Auto) (0-4) % Baso % (Auto) (0-2) % Lymph # (Auto) (1.2-4.9) X10*3/uL Grand # (Auto) (0.1-1.2) X10*3/uL Eos # (Auto) (0.0-0.4) X10*3/uL Baso # (Auto) (0.0-0.2) X10*3/uL Abs Immat Gran (auto) (0.00-0.03) X10*3/uL Absolute Neuts (auto) (2.0-8.3) x10*3/uL Absolute Nucleated RBC (0.0-0.012) X10*3/uL Nucleated RBC % (auto) (0.0-0.2) /100WBC Smear Tech's Comments VBG pH (7.32-7.43) VBG pCO2 mmHg VBG pO2 mmHg VBG HCO3 (22-26) mmol/L VBG O2 Saturation % VBG Base Excess mmol/L Sodium 145 (135-145) mmol/L Potassium 4.7 (3.3-5.1) mmol/L Chloride 113 H (96-108) mmol/L Carbon Dioxide 12 L (22-29) mmol/L Anion Gap 25 H (12-20) BUN 8 L (9-16) mg/dL Creatinine 0.88 (0.5-1.4) mg/dL Estim Creat Clear Calc 99.5 Estimated GFR > 60 Random Glucose 79 (60-115) mg/dL Lactic Acid 2.3 H* (0.5-2.0) mmol/L Lactic Acid F/U @ 2Hr (0.5-2.0) mmol/L Calcium 8.9 (8.4-10.2) mg/dL Total Bilirubin 0.3 (0.0-1.0) mg/dL Direct Bilirubin 0.1 (0.0-0.5) mg/dL AST 27 (5-31) U/L ALT 40 H (0-31) U/L Alkaline Phosphatase 53 (39-117) U/L Total Protein 7.2 (6.5-8.0) g/dL Albumin 4.6 (3.5-5.0) g/dL Urine Test (NEGATIVE) Salicylates < 5.0 L (15-30) mg/dL Urine Opiates Screen (Not Detect) Urine Fentanyl Screen (Not Detect) Acetaminophen < 17 (<30) mcg/mL Ur Barbiturates Screen (Not Detect) Ur Phencyclidine Scrn (Not Detect) Ur Amphetamines Screen (Not Detect) U Benzodiazepines Scrn (Not Detect) Urine Cocaine Screen (Not Detect) U Marijuana (THC) Screen (Not Detect) Ethyl Alcohol 130 mg/dL Acetone, Qual Negative (Negative) 02/03/23 02/03/23 02/03/23 Range/Units 15:03 17:57 17:57 WBC (4.8-10.8) X10*3/uL RBC (4.20-5.50) X10*6/uL Hgb (12.0-16.0) g/dl Hct (37.0-47.0) % MCV (80.0-98.0) fL MCH (27.0-33.0) pg MCHC (31.0-35.0) g/dl RDW (11.0-16.0) % Plt Count (160-400) X10*3/uL Immature Gran % (Auto) (0.0-0.4) % Neut % (Auto) (45-73) % Lymph % (Auto) (20-40) % Grand % (Auto) (2-11) % Eos % (Auto) (0-4) % Baso % (Auto) (0-2) % Lymph # (Auto) (1.2-4.9) X10*3/uL Grand # (Auto) (0.1-1.2) X10*3/uL Eos # (Auto) (0.0-0.4) X10*3/uL Baso # (Auto) (0.0-0.2) X10*3/uL Abs Immat Gran (auto) (0.00-0.03) X10*3/uL Absolute Neuts (auto) (2.0-8.3) x10*3/uL Absolute Nucleated RBC (0.0-0.012) X10*3/uL Nucleated RBC % (auto) (0.0-0.2) /100WBC Smear Tech's Comments VBG pH 7.33 (7.32-7.43) VBG pCO2 44 mmHg VBG pO2 46 mmHg VBG HCO3 24 (22-26) mmol/L VBG O2 Saturation 70.0 % VBG Base Excess -1.7 mmol/L Sodium 143 (135-145) mmol/L Potassium 4.1 (3.3-5.1) mmol/L Chloride 115 H (96-108) mmol/L Carbon Dioxide 19 L (22-29) mmol/L Anion Gap 13 (12-20) BUN 9 (9-16) mg/dL Creatinine 0.88 (0.5-1.4) mg/dL Estim Creat Clear Calc 99.5 Estimated GFR > 60 Random Glucose 73 (60-115) mg/dL Lactic Acid (0.5-2.0) mmol/L Lactic Acid F/U @ 2Hr 1.7 (0.5-2.0) mmol/L Calcium 8.2 L D (8.4-10.2) mg/dL Total Bilirubin (0.0-1.0) mg/dL Direct Bilirubin (0.0-0.5) mg/dL AST (5-31) U/L ALT (0-31) U/L Alkaline Phosphatase (39-117) U/L Total Protein (6.5-8.0) g/dL Albumin (3.5-5.0) g/dL Urine Test (NEGATIVE) Salicylates (15-30) mg/dL Urine Opiates Screen (Not Detect) Urine Fentanyl Screen (Not Detect) Acetaminophen (<30) mcg/mL Ur Barbiturates Screen (Not Detect) Ur Phencyclidine Scrn (Not Detect) Ur Amphetamines Screen (Not Detect) U Benzodiazepines Scrn (Not Detect) Urine Cocaine Screen (Not Detect) U Marijuana (THC) Screen (Not Detect) Ethyl Alcohol mg/dL Acetone, Qual (Negative) <Long Torres - Last Filed: 02/03/23 22:25> Discharge Plan Discharge Clinical Impression: Alcoholic intoxication, Acute dehydration <Renee Montoya NP - Last Filed: 02/03/23 16:58> Patient Disposition: Home, Self-Care <Renee Montoya NP - Last Filed: 02/03/23 16:58> Instructions: Abuse of Alcohol (ED) <Renee Montoya NP - Last Filed: 02/03/23 16:58> Additional Instructions: Your somewhat dehydrated due to alcohol use Drink lots of fluids (water and /or Gatorade) Follow-up with your primary doctor <Renee Montoya NP - Last Filed: 02/03/23 16:58> Prescriptions: No Action topiramate 100 mg tablet 200 mg PO BEDTIME Vyvanse 30 mg capsule 1 cap PO BID Hold Instructions: Resume on 12/19/22. discuss with outpt provider albuterol sulfate [Ventolin HFA] 90 mcg/actuation HFA aerosol inhaler 2 puff INHALATION Q4H trazodone 100 mg Tablet 200 mg PO BEDTIME 30 Days Qty: 60 0RF clonidine HCl 0.1 mg Tablet 0.2 mg PO BEDTIME Rx Instructions: Take 2 tabs at bedtime. clonidine HCl 0.1 mg Tablet 0.1 mg PO DAILY PRN (Reason: Panic Attack(S)) folic acid 1 mg Tablet 1 mg PO DAILY norethindrone (contraceptive) 0.35 mg tablet 0.35 mg PO DAILY risperidone [Risperdal] 0.5 mg Tablet 0.5 mg PO DAILY PRN (Reason: Anxiety) cyclobenzaprine 5 mg tablet 5 mg PO BID PRN (Reason: muscle spasm) Qty: 20 0RF <Renee Montoya NP - Last Filed: 02/03/23 16:58>
--- NOTE | 2023-02-03 13:36 | PC.NURSE ---
Pt Lab draw done. Lunch has been served. Pt reports feeling lonely. Discussed coping skills. Pt verbalized understanding.
[2023-02-03 13:47] LABS: Basophils Absolute Auto 0.1 X10*3/uL (0.0-0.2); Basophils Percent Auto 1.2 % (0-2); Eosinophils Absolute Auto 0.1 X10*3/uL (0.0-0.4); Eosinophils Percent Auto 1.5 % (0-4); Hematocrit 39.5 % (37.0-47.0); Hemoglobin 12.8 g/dl (12.0-16.0); Imm Gran Abs Auto 0.04 X10*3/uL (0.00-0.03); Imm Gran Pct Auto 0.5 % (0.0-0.4); Lymphocytes Absolute Auto 3.1 X10*3/uL (1.2-4.9); Lymphocytes Percent Auto 41.3 % (20-40); MANUAL DIFF FLAG SCAN; Mean Corpuscular HGB Conc 32.4 g/dl (31.0-35.0); Mean Corpuscular Hemoglobin 29.6 pg (27.0-33.0); Mean Corpuscular Volume 91.4 fL (80.0-98.0); Monocytes Absolute Auto 0.6 X10*3/uL (0.1-1.2); Monocytes Percent Auto 8.7 % (2-11); Neutrophils Absolute Auto 3.5 x10*3/uL (2.0-8.3); Neutrophils Percent Auto 46.8 % (45-73); PLT CLUMP 1; Red Blood Count 4.32 X10*6/uL (4.20-5.50); Red Cell Distribution Width 13.2 % (11.0-16.0); SCAN SMEAR FLAG 1
[2023-02-03 13:50] LABS: UPreg QC Valid YES; Urine Pregnancy NEGATIVE (NEGATIVE)
[2023-02-03 13:59] LABS: Amphetamine Screen Urine Not Detected (Not Detect); Barbiturates, Urine Not Detected (Not Detect); Benzodiazepines Screen Urine POSITIVE (Not Detect); Cannabinoid Screen Urine Not Detected (Not Detect); Cocaine Screen Urine Not Detected (Not Detect); Fentanyl, urine Not Detected (Not Detect); Opiate Screen Urine Not Detected (Not Detect); Phencyclidine Screen Urine Not Detected (Not Detect)
[2023-02-03 14:05] LABS: Acetaminophen LAB < 17 mcg/mL (<30); Alanine Aminotransferase 40 U/L (0-31); Albumin Level 4.6 g/dL (3.5-5.0); Alkaline Phosphatase 53 U/L (39-117); Aspartate Amino Transferase 27 U/L (5-31); Bilirubin Direct 0.1 mg/dL (0.0-0.5); Bilirubin Total 0.3 mg/dL (0.0-1.0); Blood Urea Nitrogen 8 mg/dL (9-16); Calcium 8.9 mg/dL (8.4-10.2); Creatinine Clr Calc Pharmacy 99.5; Estimated Glomerular Filt Rate > 60; Ethanol 130 mg/dL; Glucose Random 79 mg/dL (60-115); Salicylate < 5.0 mg/dL (15-30); Total Protein 7.2 g/dL (6.5-8.0)
[2023-02-03 14:07] LABS: White Blood Count 7.4 X10*3/uL (4.8-10.8)
[2023-02-03 14:08] LABS: Platelet Count 301 X10*3/uL (160-400); SLIDE REVIEW VERIFIED
[2023-02-03 14:21] LABS: Anion Gap 25 (12-20); Carbon Dioxide 12 mmol/L (22-29); Chloride 113 mmol/L (96-108); Potassium 4.7 mmol/L (3.3-5.1); Sodium 145 mmol/L (135-145)
--- NOTE | 2023-02-03 14:45 | PC.NURSE ---
PT WAS BROUGHT TO THE MAIN ED FOR IV HYDRATION AFTER LAB RESULTS. SHE WAS IN BEHAVIORAL CONTROL AND OFFERS NO COMPLAINTS . SHE IS WAS ON THE PHONE AND DENIED SI.
[2023-02-03] MEDS: 0.9 % Sodium Chloride 2,000 ML 999 ML IV (14:46)
[2023-02-03 15:10] LABS: VBG Base Excess -1.7 mmol/L; VBG HCO3 24 mmol/L (22-26); VBG pCO2 44 mmHg; VBG pH 7.33 (7.32-7.43); VBG pO2 46 mmHg
[2023-02-03 15:45] LABS: Lactic Acid 2.3 mmol/L (0.5-2.0)
[2023-02-03 15:58] LABS: Venous Blood Gas Refer to POC result
[2023-02-03 16:07] LABS: Acetone, serum QL Negative (Negative)
--- NOTE | 2023-02-03 17:00 | PC.NURSE ---
PT ENGAGED IN CONVERSATION WITH JIG FILLER. AWAITING REPEAT LABS.
[2023-02-03 17:03] LABS: Reflex Lactate? Lactic Acid Added
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
[2023-02-03 18:15] LABS: ~Lactic Acid-LAB USE ONLY 1.7 mmol/L (0.5-2.0)
[2023-02-03 18:29] LABS: Anion Gap 13 (12-20); Blood Urea Nitrogen 9 mg/dL (9-16); Calcium 8.2 mg/dL (8.4-10.2); Carbon Dioxide 19 mmol/L (22-29); Chloride 115 mmol/L (96-108); Creatinine Clr Calc Pharmacy 99.5; Estimated Glomerular Filt Rate > 60; Glucose Random 73 mg/dL (60-115); Potassium 4.1 mmol/L (3.3-5.1); Sodium 143 mmol/L (135-145)
--- NOTE | 2023-02-03 18:53 | MHC.RECOVSUP ---
? Reason for consult:Recovery Support o ?Current location: ED 22[facility] o ?Identified substance use concern: AUD? - Support ? ?Intervention: o Community resources provided o Harm reduction discussion ? Additional information:?Consult with the Care Team before initial meet with pt. Patient is not interested in detox, possible candidate for CSS or TSS. 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 Community resources, harm reduction strategies and tools for pt to utilize in the moment were suggested.
== END 2023-02-03 22:54 | disposition home or self-care (01) ==
PROVIDERS: Nurse Practitioner Family; Emergency Provider Emergency Medicine; PCP Family Medicine
DX: F10.129 Alcohol abuse with intoxication, unspecified (principal); Y90.6 Blood alcohol level of 120-199 mg/100 ml; F31.9 Bipolar disorder, unspecified; Z79.899 Other long term (current) drug therapy; Z87.891 Personal history of nicotine dependence
CPT/HCPCS: 36415; 80048; 80076; 80143; 80179; 80307; 81025; 82009; 82077; 82803; 83605; 85025; 99284; 99285; S9485